=== PATIENT | female | born 1965 | race Caucasian/White ===

== ENCOUNTER 2018-06-26 00:28 | Outpatient (CLI) | payer MEDICAID, SELFPAY ==
--- NOTE | 2018-06-26 09:23 | DI.RAD_ITS ---
SYMPTOM/DIAGNOSIS: CHRONIC OBS ASTHMA J44.9, COUGH R05 CHEST X-RAY PA and lateral. Comparison 04/20/14 Heart size and pulmonary vasculature are within normal limits. The lungs are hyperinflated consistent with underlying COPD. No infiltrates, effusions or pneumothoraces are identified. The bones are intact. IMPRESSION: COPD, no acute pulmonary process.
== END 2018-06-26 00:48 ==
PROVIDERS: PCP Physician Assistant Medical; Visit Provider Physician Assistant Medical
DX: J44.9 Chronic obstructive pulmonary disease, unspecified (principal); R05 Cough
CPT/HCPCS: 71046

== ENCOUNTER 2018-07-16 01:21 | Outpatient (CLI) | payer MEDICAID, SELFPAY ==
--- NOTE | 2018-07-16 10:17 | DI.RAD_ITS ---
SYMPTOM/DIAGNOSIS: LT INDEX DIP PAIN M79.645 LEFT INDEX FINGER: The bony structures are normally mineralized. There are mild degenerative changes involving the distal interphalangeal joint. There is no evidence of a fracture or dislocation.
== END 2018-07-16 01:41 ==
PROVIDERS: PCP Physician Assistant Medical; Visit Provider Specialist/Technologist Athletic Trainer
DX: M79.645 Pain in left finger(s) (principal); M15.1 Heberden's nodes (with arthropathy)
CPT/HCPCS: 73140

== ENCOUNTER 2018-12-14 02:03 | Outpatient (CLI) | payer MEDICAID, SELFPAY | END 2018-12-14 02:23 | PROVIDERS: PCP Physician Assistant Medical; Visit Provider Nurse Practitioner Family | DX: J44.9 Chronic obstructive pulmonary disease, unspecified (principal) ==

== ENCOUNTER 2019-10-15 01:55 | Outpatient (CLI) | payer MEDICARE, MEDICAID, SELFPAY ==
--- NOTE | 2019-10-15 13:14 | DI.MAMMO_ITS ---
EXAM: MG MAMMO SCREENING CLINICAL HISTORY: SCREENING, [facility] Z00.00. TECHNIQUE: Full field digital CC and MLO mammographic images were obtained with 3D tomosynthesis and utilizing computer aided detection (CAD). COMPARISON: . 2011 to 2016 FINDINGS: Breast Density - Category B - Scattered areas of fibroglandular density Masses/Architectural Distortion: None seen. Microcalcifications: No suspicious pleomorphic-type calcifications are seen. Skin Thickening/Nipple Retraction: None. Axilla: Unremarkable. IMPRESSION: 1. BI-RADS category 1, negative. No significant interval change with no specific features of maligna ncy noted. 2. Unless there is more urgent need, screening mammography is recommended, as per [employer] guidelines. A negative radiographic report should not delay biopsy if a dominant or clinically suspicious mass is present. Up to ten percent of cancers are not identified on mammography. A negative report may reinforce clinical impression. Adenosis and dense breasts may obscure an underlying neoplasm. False positive reports average 6 to 10%. Patient will receive a letter notifying them of these results.
== END 2019-10-15 02:15 ==
PROVIDERS: PCP Physician Assistant Medical; Visit Provider Nurse Practitioner Family
DX: Z12.31 Encounter for screening mammogram for malignant neoplasm of breast (principal)
CPT/HCPCS: 77063; 77067

== ENCOUNTER 2019-12-07 15:25 | Outpatient (REF) | payer MEDICARE, MEDICAID, SELFPAY ==
--- NOTE | 2019-12-07 11:20 | PAPFT_PTH ---
PATIENT: Ely Casanova LOC: [facility] U#:[id number] AGE/SX: 54/F ROOM: RE12/07/[address]: Arline Miguel : 1965 BED: DIS: 12/07/2019 SPEC #: [id number] RECD: 12/08/19 12:56 STATUS: KEVIN REElisa #: [id number] VA: 12/07/19 11:[address]: Arline Miguel DEPT: [facility] Cytology RECD BY: Kandis Pugh ENTERED: 12/08/19 12:57 SP TYPE: PAPFT OTHR DR: Debby Salmon Tissues: 1 - CX/ENDOCX FOR PAP SMEARS Procedures: PAP THIN PREP/UVM Screening HPV DNA PROBE Comments: [id number]
== END 2019-12-07 15:45 ==
LOC: NCHCN 15:25
PROVIDERS: PCP Physician Assistant Medical; Visit Provider Nurse Practitioner Family
DX: Z12.4 Encounter for screening for malignant neoplasm of cervix (principal); Z01.419 Encounter for gynecological examination (general) (routine) without abnormal findings
CPT/HCPCS: 88142; 87624

== ENCOUNTER 2020-02-09 16:26 | Outpatient (REF) | payer MEDICARE, MEDICAID, SELFPAY ==
[2020-02-10 14:48] LABS: COVID-19 RT-PCR Result NEGATIVE (Negative)
== END 2020-02-09 16:46 ==
LOC: NCHCN 16:26
PROVIDERS: PCP Physician Assistant Medical; Visit Provider Physician Assistant
DX: R06.02 Shortness of breath (principal)
CPT/HCPCS: U0003

== ENCOUNTER 2020-02-16 08:42 | Outpatient (REF) | payer MEDICARE, MEDICAID, SELFPAY ==
[2020-02-16 18:59] LABS: ALT 34 U/L (14-59); AST 21 U/L (15-37); Albumin 3.7 g/dL (3.4-5.0); Alkaline Phosphatase 54 U/L (46-116); Anion Gap 4.4 mmol/L (3-11); BUN 13 mg/dL (7-18); Bilirubin, Total 0.2 mg/dL (0.2-1.0); CO2 32.6 mmol/L (21.0-32.0); Calcium 9.1 mg/dL (8.5-10.1); Calculated LDL 127 mg/dL (<100); Chloride 98 mmol/L (98-107); Cholesterol 191 mg/dL (<200); Glucose 110 mg/dL (74-106); HDL Cholesterol 45 mg/dL (40-60); Potassium 4.8 mmol/L (3.5-5.1); Sodium 135 mmol/L (136-145); Triglyceride 98 mg/dL (<150)
[2020-02-16 19:27] LABS: Creatine Kinase 116 U/L (26-192)
== END 2020-02-16 09:02 ==
LOC: NCHCN 08:42
PROVIDERS: PCP Physician Assistant Medical; Visit Provider Nurse Practitioner Family
DX: E78.5 Hyperlipidemia, unspecified (principal); J44.9 Chronic obstructive pulmonary disease, unspecified; F17.200 Nicotine dependence, unspecified, uncomplicated
CPT/HCPCS: 80053; 80061; 82550

== ENCOUNTER 2020-04-18 14:57 | Outpatient (REF) | payer MEDICARE, MEDICAID, SELFPAY ==
[2020-04-18 19:43] LABS: HDL Cholesterol 50 mg/dL (40-60); LDL CHOLESTEROL 88 mg/dL (<100)
== END 2020-04-18 15:17 ==
LOC: NCHCN 14:57
PROVIDERS: PCP Physician Assistant Medical; Visit Provider Nurse Practitioner Family
DX: I73.9 Peripheral vascular disease, unspecified (principal); J44.9 Chronic obstructive pulmonary disease, unspecified; R19.5 Other fecal abnormalities
CPT/HCPCS: 83721; 83718

== ENCOUNTER 2020-07-17 11:53 | Outpatient (REF) | payer MEDICARE, MEDICAID, SELFPAY ==
[2020-07-17 19:20] LABS: HCT 51.8 % (36.0-46.0); HGB 17.2 g/dL (11.2-15.7); MCH 35.8 pg (27.0-33.0); MCHC 33.2 % (32.0-36.0); MCV 107.9 fL (80-95); MPV 10.1 fL (8.0-11.0); Platelet Count 229 10^3/uL (130-400); RDW 12.7 % (11.7-14.6); RDW-SD 51.8 fL; WBC 6.27 10^3/uL (4.4-10.8)
[2020-07-17 19:37] LABS: Anion Gap 4.5 mmol/L (3-11); BUN 14 mg/dL (7-18); CO2 31.5 mmol/L (21.0-32.0); CREATININE 0.64 mg/dL (0.55-1.02); Calcium 9.7 mg/dL (8.5-10.1); Chloride 97 mmol/L (98-107); Glucose 107 mg/dL (74-106); Potassium 5.4 mmol/L (3.5-5.1); Sodium 133 mmol/L (136-145)
[2020-07-19 10:27] LABS: TSH (W/Ref FT4) 1.81 uIU/mL (0.36-3.74); Vitamin B12 424 pg/mL (193-986)
[2020-07-19 21:38] LABS: Folate 6.2 ng/mL (See Note)
== END 2020-07-17 12:13 ==
LOC: NCHCN 11:53
PROVIDERS: PCP Nurse Practitioner Family; Visit Provider Nurse Practitioner Family
DX: J44.9 Chronic obstructive pulmonary disease, unspecified (principal); I73.9 Peripheral vascular disease, unspecified; E78.5 Hyperlipidemia, unspecified; R89.9 Unspecified abnormal finding in specimens from other organs, systems and tissues
CPT/HCPCS: 80048; 85027; 82607; 82746; 84443

== ENCOUNTER 2020-12-11 11:18 | Observation (INO) | payer MEDICARE, MEDICAID, SELFPAY ==
[2020-12-11] VITALS (47 sets, daily range): BP systolic 94–148; BP diastolic 42–112; PULSE 63–93; RESP 7–25; TEMP 36.7; O2SAT 94–99
--- NOTE | 2020-12-11 11:15 | RT.EKG_ITS ---
APPROVED REPORT Exam: Resting ECG Patient Location: E HR:62 bpm ECG Measurements Heart Rate 62 AXIS NM 164 P 82 QRSd 103 QRS 79 QT 383 T 65 QTc 391 Conclusion Sinus rhythm...normal P axis, V-rate 60- 99 non-specific ST changes, no STEMI, non-diagnostic EKG
--- NOTE | 2020-12-11 11:30 | DI.CT_ITS ---
EXAM: CT THORAX CTA CLINICAL HISTORY: chest pain, coagulopath. TECHNIQUE: Imaging Protocol: CT angiography of the chest was performed using pulmonary embolus jordyn col. Multi planar reconstructions were performed. CONTRAST MATERIAL: Intravenous: Omnipaque 350 Contrast volume: 100 cc COMPARISON: CT CT ABD AORTA CTA W RUNOFF from 12/11/[address] ABD AORTA CTA W RUNOFF from 12/11/2020 FINDINGS: CHEST: PULMONARY ARTERIES: There are no intraluminal filling defects to suggest acute pulmonary emboli. LUNGS: There are no infiltrates nor evidence of pulmonary infarction.. There are no pleural effusions . MEDIASTINUM: There is no hilar nor mediastinal adenopathy. Visualized thyroid unremarkable. CARDIAC: Heart size is normal. There is no pericardial effusion.Caliber of the thoracic aorta is wit hin normal limits. There is no evidence of shift of the interventricular septum. No evidence of aort ic dissection. Vertebral artery on the left side originates as an independent vessel off the aortic arch instead of typical origin off left subclavian artery. PARTIALLY VISUALIZED UPPERMOST ABDOMEN: No obvious findings OSSEOUS: No significant osseous lesions.. IMPRESSION: 1. No evidence of acute pulmonary emboli. No evidence of pulmonary infarction.No pleural effusions. 2. No intrathoracic adenopathy 3. Left vertebral artery variant origin as described above, this being developmental. RADIATION DOSE DELIVERED: LINK-TO-SR Total DLP DATA REPOSITORY: All CT scans at this facility are submitted to the National Radiology Data Registry (NRDR) Dose Index Registry (DIR) with the [employer] (ACR). RADIATION OPTIMIZATION: All CT scans at this facility use at least one of these dose optimization te chniques: automated exposure control; mA and/or kV adjustment per patient size (includes targeted exa ms where dose is matched to clinical indication); or iterative reconstruction.
--- NOTE | 2020-12-11 11:47 | W.ED.GENAD ---
Discharge Plan Disposition Condition: Improving Discharge Details Chief Complaint: Chest Pain Admit Date/Time: 12/11/20 18:32 Admit Provider: Estevan Slater Attending Provider: Estevan Slater Primary Care Provider: Arline Miguel ED Provider: Kandis Sorto Discharge Instructions Activity:: Activity as Tolerated Equipment/Supplies:: No Equipment Needed Diet:: As Tolerated Discharge Orders Discharge Orders: Discharge Order (Routine); Ordered 12/12/20 Ordered By: Mónica Murray Discharge Data Discharge Date/Time-TO BE ENTERED AT DEPARTURE: 12/11/20 19:09 Medical Decision Making <KJ Salas - Last Filed: 12/13/20 16:07> Patient has stenosis with the SMA, 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 Miller, no acute abnormality Patient is resting comfortably in room I did not give aspirin as she did take her Plavix and her Xarelto this morning She is agreeable to admission at this time Spoke with Dr. Morton, vascular at [facility] who does not believe any intervention is needed regarding abnormal CT findings abdomen and pelvis Patient will be admitted by Dr. Slater No aspirin was administered as patient has taken her Plavix today and Xarelto Pain-free at time of reevaluation 2 - troponins, to negative EKGs Differential Diagnosis Differential Diagnosis: Angina, ST elevation HI, pulmonary embolism, anxiety Medical Records Medical records reviewed: Yes I reviewed the patient's medical records. Lab Data Lab results reviewed: Yes I reviewed the patient's lab results. <KJ Ashton - Last Filed: 12/11/20 18:14> This patient was going to be signed out to me by my colleague KJ Sorto; however, patient disposition made prior to any official handoff. I has no participation in the patient's care here in the ER. HPI <KJ Salas - Last Filed: 12/13/20 16:07> This 55-year-old female with past medical history of peripheral vascular disease with 5 stents on Xarelto and Plavix presents with reports of chest pain which started yesterday at 3. She states that the chest pain began when her grandkids were taken from her. She states that her [id number]-lj-[id number] to remove the grandkids from the house abruptly and this precipitated the pain. She denies prior history of similar pain with anxiety. She denies any new leg pain or swelling. She denies any shortness of breath. She states the chest pain lasts several seconds and then resolves. She denies any pleuritic pain she says but when she starts thinking about how her grand kids have been removed, this makes her pain worse. She denies prior stress test or known cardiac history. She denies history of early cardiac disease in family members or known cardiac disease himself. She denies history of hypertension but does have reported history of hyperlipidemia. Denies any associated nausea or diaphoresis. General Date/Time Provider Initiated Documentation: 12/11/20 11:29. Related Data Home Medications Medication Instructions Recorded Confirmed Advair HFA 2 puff INHALATION BID 12/07/12 12/11/20 acetaminophen 325 - 650 mg PO PRN tab-cap 05/02/15 12/11/20 calcium citrate 500 mg PO DAILY 05/02/15 12/11/20 cholecalciferol (vitamin D3) 2,000 unit PO DAILY 05/02/15 12/11/20 [Vitamin D3] gabapentin 300 mg PO 3 TABS HS tab-cap 05/02/15 12/11/20 loratadine 10 mg PO DAILY tab-cap 05/02/15 12/11/20 simvastatin 10 mg PO DAILY tab-cap 05/02/15 12/11/20 Combivent Respimat 1 puff INHALATION QID 12/11/20 12/12/20 Xarelto 2.5 mg PO BID 12/11/20 12/11/20 albuterol sulfate 1.25 mg INHALATION QID PRN 12/11/20 12/11/20 albuterol sulfate 2 puff INHALATION Q4H PRN PRN 12/11/20 12/11/20 clopidogrel 75 mg PO HS 12/11/20 12/11/20 ferrous sulfate 325 mg PO BID 12/11/20 12/11/20 gabapentin 400 mg PO QAM 12/11/20 12/11/20 hydroxyzine pamoate 25 mg PO TID PRN PRN 12/11/20 12/11/20 omeprazole 20 mg PO DAILY 12/11/20 12/11/20 polyethylene glycol 3350 255 g PO DAILY PRN 12/11/20 12/11/20 Allergies Allergy/AdvReac Type Severity Reaction Status Date / Time tramadol HCl [From Ultram] AdvReac Intermediate Nausea Unverified 12/11/20 11:31 General Stated Complaint: Chest Pain CAMPOS: 2 <KJ Ashton - Last Filed: 12/11/20 18:14> This 55-year-old female with past medical history of peripheral vascular disease with 5 stents on Xarelto and Plavix presents with reports of chest pain which started yesterday at 3. She states that the chest pain began when her grandkids were taken from her. She states that her zapgcuyv-sl-[id number] to remove the grandkids from the house abruptly and this precipitated the pain. She denies prior history of similar pain with anxiety. She denies any new leg pain or swelling. She denies any shortness of breath. She states the chest pain lasts several seconds and then resolves. She denies any pleuritic pain she says but when she starts thinking about how her grand kids have been removed, this makes her pain worse. She denies prior stress test or known cardiac history. She denies history of early cardiac disease in family members or known cardiac disease himself. She denies history of hypertension but does have reported history of hyperlipidemia. Denies any associated nausea or diaphoresis. Review of Systems <KJ Salas - Last Filed: 12/13/20 16:07> Narrative: Review of systems obtained x7 aside from where indicated in [facility] <KJ Salas - Last Filed: 12/13/20 16:07> Medical History Anemia Anxiety Asthma Carpal tunnel syndrome Chronic obstructive lung disease Degenerative joint disease Depression Dysuria Fibrocystic breast disease Fibromyalgia Gastroesophageal reflux disease Hyperlipidemia Knee joint pain Low back pain syndrome Neuropathic arthritis Osteopenia Peripheral vascular disease Plantar fasciitis PTSD (post-traumatic stress disorder) Shoulder pain Tobacco abuse URI (upper respiratory infection) Surgical History Excision, Distal Clavicle (12/09/12) LEFT Open Carpal Tunnel release (07/28/15) LEFT WRIST/ Social History Smoking/Tobacco Use Status: Current every day Smoking risk assessment performed?: Yes Alcohol Intake: never Drug use: Occasionally Substance use type: marijuana Do you feel safe at home: Yes Do you feel safe in your relationship?: Yes Exam <JK Salas - Last Filed: 12/13/20 16:07> Const General: cooperative and no acute distress Orientation: oriented x3 HENMT Mouth: oral mucosae normal Chest Chest: normal inspection of the chest Other: Reproducible chest wall tenderness Resp Effort & Inspection: normal respiratory effort Auscultation: clear to auscultation bilaterally Cardio Rate: regular rate Rhythm: regular rhythm GI Other: No abdominal bruit or pulsatile mass Neuro General: patient alert and patient oriented x3 Extrem Other: No dopplerable pulse to right lower extremity, baseline per patient Posterior tibialis pulse intact left lower extremity No calf swelling or tenderness appreciated Course <KJ Salas - Last Filed: 12/13/20 16:07> Vital Signs Vital signs: Vital Signs Temperature 36.7 C 12/11/20 11:27 Pulse 72 12/11/20 11:27 Respiratory Rate 16 12/11/20 11:27 Blood Pressure 94/42 L 12/11/20 11:27 Pulse Oximetry 98 12/11/20 11:27 Temperature 36.7 C 12/11/20 11:27 Temperature Source Temporal Artery Scan 12/11/20 11:27 Pulse 72 12/11/20 11:27 Respiratory Rate 16 12/11/20 11:27 Respiratory Effort Non-Labored 12/11/20 11:30 Blood Pressure 94/42 L 12/11/20 11:27 Blood Pressure Position Supine 12/11/20 11:27 Pulse Oximetry 98 12/11/20 11:27 Oxygen Delivery Method Nasal Cannula 12/11/20 11:27 Oxygen Flow Rate 2 12/11/20 11:27 Pain Level 2 12/11/20 11:27
[2020-12-11 11:59] LABS: Abs Immature Grans 0.03 10^3/uL (0.0-0.06); Absolute Eosinophil Count 0.15 10^3/uL (0.0-0.7); HCT 50.9 % (36.0-46.0); HGB 17.4 g/dL (11.2-15.7); MCH 36.2 pg (27.0-33.0); MCHC 34.2 % (32.0-36.0); MCV 105.8 fL (80-95); MPV 9.2 fL (8.0-11.0); Nucleated RBC 0 %; Platelet Count 253 10^3/uL (130-400); RBC 4.81 10^6/uL (3.93-5.22); RDW 12.2 % (11.7-14.6); RDW-SD 48.9 fL; WBC 7.36 10^3/uL (4.4-10.8)
[2020-12-11 12:17] LABS: ALT 30 U/L (14-59); AST 20 U/L (15-37); Alkaline Phosphatase 78 U/L (46-116); Anion Gap 7.8 mmol/L (3-11); BUN 12 mg/dL (7-18); Bilirubin, Total 0.4 mg/dL (0.2-1.0); CO2 29.2 mmol/L (21.0-32.0); CREATININE 0.6 mg/dL (0.55-1.02); Calcium 9.1 mg/dL (8.5-10.1); Chloride 98 mmol/L (98-107); Glucose 106 mg/dL (74-106); Potassium 4.1 mmol/L (3.5-5.1); Sodium 135 mmol/L (136-145); Total Protein 8.1 g/dL (6.4-8.2)
[2020-12-11 12:19] LABS: Troponin I < 0.05 ng/mL (<0.06)
[2020-12-11 12:20] LABS: Absolute Lymphocyte Count 1.91 10^3/uL (1.2-3.4); Absolute Monocyte Count 0.88 10^3/uL (0.1-0.8); Absolute Neutrophil Count 4.42 10^3/uL (1.2-6.7); Atypical Lymphocytes % 6; Diff Comment Manual Differential; Macrocytosis 3+; Polychromasia Present
[2020-12-11] MEDS: Normal Saline - Diluent 50 ML VIAL IV (13:53)
[2020-12-11] MEDS: Omnipaque 350 MG/ML 100 ML BTL IJ (13:54)
[2020-12-11] MEDS: Omnipaque 350 MG/ML 50 ML BTL IJ (13:55)
--- NOTE | 2020-12-11 13:57 | DI.CT_ITS ---
EXAM: CT ABD AORTA CTA W RUNOFF CLINICAL HISTORY: chest pain, coagulopath, stents 5 in legs. TECHNIQUE: Imaging Protocol: Axial computed tomography images with coronal and sagittal reformatted images were created and reviewed CONTRAST MATERIAL: Intravenous: Omnipaque 350 Contrast volume:100 ml Oral: None COMPARISON: CT CT THORAX CTA from 12/11/2020 FINDINGS: ABDOMEN: CTA: The abdominal aorta is atherosclerotic. There is significant stenosis at the origin of the supe rior mesenteric artery, approximately 80 percent. Inferior mesenteric artery is occluded. There is fusiform aneurysmal dilatation of the infrarenal abdominal aorta with maximum diameter 2.3 cm. There stents in the common iliac arteries. On the right side there is no prominent intra stent stenosis. No prominent stenosis in the right ext ernal iliac artery. Common femoral artery is patent but the right SFA is occluded at its origin. Distal flow is reconsti tuted at the popliteal artery level. There is thin three-vessel runoff in the right calf. On the left side there is significant stenosis with at the junction of the common and external iliac arteries. Significant disease in the left common femoral artery. Left SFA is a thin but patent vessel is santos nuous with the left popliteal artery which is also within vessel. Tibioperoneal trunk is patent. Th ere is thin three-vessel runoff in the left calf. There is no ascites. No obvious ischemic appearing bowel loops. LIVER: There are no focal hepatic lesions nor dilatation of intrahepatic ducts. GALLBLADDER/BILIARY: No obvious gallbladder pathology. CBD is not dilated. PANCREAS: No evidence of pancreatic mass nor dilatation of the pancreatic duct. SPLEEN: Spleen is not enlarged. There are no intrasplenic lesions. Splenic and portal veins are mcleod nt. ADRENALS: Thickening of the adrenal glands noted. KIDNEYS: No cysts evident. No calculi nor hydronephrosis. No solid renal masses. LYMPH NODES: There is no retroperitoneal nor para-aortic adenopathy. No obvious mesenteric masses. ABDOMINAL WALL/GI: No evidence of significant anterior abdominal wall hernia. No bowel obstruction. PELVIS: LYMPH NODES: There is no intrapelvic nor inguinal adenopathy. GI: No evidence of appendicitis.No evidence of sigmoid diverticulitis. URINARY BLADDER: No calculi nor masses evident REPRODUCTIVE: Age-appropriate OSSEOUS: Osteopenia. No discrete focal lytic osseous lesions identified. IMPRESSION: 1. Atherosclerotic abdominal aorta as described above high-grade stenosis at the origin of the superi or mesenteric artery. There are no obvious ischemic appearing bowel loops. TITA origin is not identi fied and is presumed to be occluded. Celiac artery is patent 2. Left renal artery is patent. Significant stenosis at the origin of the right renal artery. Both kidneys exhibit normal size. No incidental renal masses. 3. Iliac artery stents with findings as above. 4. Right SFA is occluded. Left SFA is a thin vessel There are opacified subpopliteal arteries bilaterally. No evidence of popliteal artery aneurysm RADIATION DOSE DELIVERED: Total DLP Total DLP DATA REPOSITORY: All CT scans at this facility are submitted to the National Radiology Data Registry (NRDR) Dose Index Registry (DIR) with the [employer] (ACR). RADIATION OPTIMIZATION: All CT scans at this facility use at least one of these dose optimization te chniques: automated exposure control; mA and/or kV adjustment per patient size (includes targeted exa ms where dose is matched to clinical indication); or iterative reconstruction.
--- NOTE | 2020-12-11 14:00 | RT.EKG_ITS ---
APPROVED REPORT Exam: Resting ECG Patient Location: E HR:74 bpm ECG Measurements Heart Rate 74 AXIS HI 171 P 87 QRSd 106 QRS 75 QT 387 T 64 QTc 429 Conclusion Sinus rhythm...normal P axis, V-rate 60- 99 non diagnostic EKG I have reviewed and interpreted ECG and agree with software generated interpretation.
[2020-12-11 14:54] LABS: Troponin I < 0.05 ng/mL (<0.06)
[2020-12-11 16:23] LABS: Source Nasal/Nares
[2020-12-11 17:12] LABS: COVID-19 PCR Negative (Negative)
--- NOTE | 2020-12-11 18:20 | W.PM.HP.N ---
Date of service: 12/11/20 Time of Service: 18:20 Assessment and Plan Assessment and plan (1) Chest pain: Status: Acute Assessment and plan: CP. I think stress reaction more likely, but angina precipitated by stress to be considered. In any case will complete enzyme sequence and plan on stress test in AM. Will also trial dose of Ativan. History of Present Illness History of Present Illness Chief Complaint: CP Narrative: 55 female with COPD and PVD. Reports she had a sudden falling out with her zrzskcoc-ns-zqh last night (she usually watches her grandchildren, and the daughter pulled them from her car because of a careless remark). This was very stressful for her, and she developed some chest discomfort. Unclear if this was persistent, waxing and waning or resolved, but she dos allow that when she thinks about what happened last night she gets disturbed again, and has more CP. Saw PCP who sent her to ER. In ER trop neg x 2 and EKG w/o changes. CTA chest negative. Here for serial enzymes and then stress test. I ask if she thinks this is more a question of stress or actual pain. She is not sure. But when offered she agrees to trial dose something to help her relax. Review of Systems All systems reviewed & are unremarkable except as noted in HPI and below PFSH Medical History Anemia Anxiety Asthma Carpal tunnel syndrome Chronic obstructive lung disease Degenerative joint disease Depression Dysuria Fibrocystic breast disease Fibromyalgia Gastroesophageal reflux disease Hyperlipidemia Knee joint pain Low back pain syndrome Neuropathic arthritis Osteopenia Peripheral vascular disease Plantar fasciitis PTSD (post-traumatic stress disorder) Shoulder pain Tobacco abuse URI (upper respiratory infection) Surgical History Excision, Distal Clavicle (12/09/12) LEFT Open Carpal Tunnel release (07/28/15) LEFT WRIST/ Social History Smoking/Tobacco Use Status: Current every day Smoking risk assessment performed?: Yes Alcohol Intake: never Drug use: Occasionally Substance use type: marijuana Do you feel safe at home: Yes Do you feel safe in your relationship?: Yes Meds Home Medications and Allergies Allergies Allergy/AdvReac Type Severity Reaction Status Date / Time tramadol HCl [From Ultram] AdvReac Intermediate Nausea Unverified 12/11/20 11:31 Home Medications Medication Instructions Recorded Confirmed Type fluticasone propion-salmeterol 2 puff INHALATION BID 12/07/12 12/11/20 History [Advair Hfa 230/21 Mcg Inhaler] acetaminophen 325 - 650 mg PO PRN tab-cap 05/02/15 12/11/20 History calcium citrate 500 mg PO DAILY 05/02/15 12/11/20 History cholecalciferol (vitamin D3) 2,000 unit PO DAILY 05/02/15 12/11/20 History [Vitamin D3] gabapentin 300 mg PO 3 TABS HS tab-cap 05/02/15 12/11/20 History loratadine 10 mg PO DAILY tab-cap 05/02/15 12/11/20 History simvastatin 10 mg PO DAILY tab-cap 05/02/15 12/11/20 History albuterol sulfate 1.25 mg INHALATION QID PRN 12/11/20 12/11/20 History albuterol sulfate 2 puff INHALATION Q4H PRN PRN 12/11/20 12/11/20 History clopidogrel 75 mg PO HS 12/11/20 12/11/20 History ferrous sulfate 325 mg PO BID 12/11/20 12/11/20 History gabapentin 400 mg PO QAM 12/11/20 12/11/20 History hydroxyzine pamoate 25 mg PO TID PRN PRN 12/11/20 12/11/20 History ipratropium-albuterol [Combivent 2 puff INHALATION QID 12/11/20 12/11/20 History Respimat] omeprazole 20 mg PO DAILY 12/11/20 12/11/20 History polyethylene glycol 3350 255 g PO DAILY PRN 12/11/20 12/11/20 History rivaroxaban [Xarelto] 2.5 mg PO BID 12/11/20 12/11/20 History Exam Narrative Exam Narrative: 108/61, 74, 36.7, 20. 95% RA. HEENT atraumatic; neck JVP less than 4 cm; lungs diminished; heart distant, RRR; abdomen soft and NT' extremities w/o edema, pedal pulses not palpable; neuro Ox3, moves all 4s Results Labs Result diagrams: 12/11/20 10:50 12/11/20 10:50 Labs: Laboratory Results - last 24 hr 12/11/20 12/11/20 12/11/20 10:50 10:50 14:20 WBC 7.36 RBC 4.81 Hgb 17.4 H Hct 50.9 H MCV 105.8 H MCH 36.2 H MCHC 34.2 RDW 12.2 Plt Count 253 MPV 9.2 Immature Gran % 0.0 Neutrophils % 60.0 Lymphocytes % 20.0 Atypical Lymphs % 6 Monocytes % 12.0 Eosinophils % 2.0 Basophils % 0.0 Nucleated RBC % 0 Absolute Neutrophils 4.42 Absolute Lymphocytes 1.91 Absolute Monocytes 0.88 H Absolute Eosinophils 0.15 Absolute Basophils 0.00 RBC Morphology See below Polychromasia Present Macrocytosis 3+ Sodium 135 L Potassium 4.1 Chloride 98 Carbon Dioxide 29.2 Anion Gap 7.8 BUN 12 Creatinine 0.6 Estimated GFR/1.73 m2 >= 60.00 Glucose 106 Calcium 9.1 Total Bilirubin 0.4 AST 20 ALT 30 Alkaline Phosphatase 78 Troponin I < 0.05 < 0.05 Total Protein 8.1 Albumin 4.0 COVID-19 Source SARS-CoV-2 (PCR) 12/11/20 12/11/20 15:01 16:20 WBC RBC Hgb Hct MCV MCH MCHC RDW Plt Count MPV Immature Gran % Neutrophils % Lymphocytes % Atypical Lymphs % Monocytes % Eosinophils % Basophils % Nucleated RBC % Absolute Neutrophils Absolute Lymphocytes Absolute Monocytes Absolute Eosinophils Absolute Basophils RBC Morphology Polychromasia Macrocytosis Sodium Potassium Chloride Carbon Dioxide Anion Gap BUN Creatinine Estimated GFR/1.73 m2 Glucose Calcium Total Bilirubin AST ALT Alkaline Phosphatase Troponin I Cancelled Total Protein Albumin COVID-19 Source Nasal/nares SARS-CoV-2 (PCR) Negative Last Vital Signs Temp 36.7 C 12/11/20 11:27 Pulse 74 12/11/20 15:01 Resp 20 12/11/20 15:01 BP 108/61 12/11/20 15:01 Pulse Ox 95 12/11/20 15:00 COVID-19 Screening Have you, or household traveled for leisure in last 14 days?: No Had IN PERSON contact w/suspected or confirmed C-19 person: No
[2020-12-11 19:24] LABS: Troponin I < 0.05 ng/mL (<0.06)
[2020-12-11] MEDS: Clopidogrel 75 MG TAB PO (21:20)
[2020-12-11] MEDS: Gabapentin 300 MG CAP 900 MG PO (21:21)
[2020-12-11] MEDS: LORazepam 0.5 MG TAB PO (21:31)
[2020-12-11] MEDS: Rivaroxaban 2.5 MG TABLET PO (21:41)
[2020-12-12 07:03] VITALS: PULSE 78
[2020-12-12 07:15] VITALS: BP 122/72; PULSE 79; RESP 18; TEMP 36.7; O2SAT 90
[2020-12-12] MEDS: Simvastatin 10 MG TAB PO (07:55)
[2020-12-12] MEDS: Gabapentin 400 MG CAP PO (07:55)
[2020-12-12] MEDS: Omeprazole 20 MG CAPCR PO (07:55)
[2020-12-12] MEDS: Rivaroxaban 2.5 MG TABLET PO (08:55)
[2020-12-12 11:12] VITALS: BP 126/79; PULSE 80; RESP 19; TEMP 37; O2SAT 90
--- NOTE | 2020-12-12 11:26 | CHAPLAIN ---
I had a short visit with Ely, who was expecting to be discharged. She asked for another cup of coffee while she waited.
--- NOTE | 2020-12-12 12:07 | W.PM.DS.N ---
Date of service: 12/12/20 Time of Service: 12:07 DS: Diagnosis Discharge Diagnosis (1) Chest pain: Status: Acute Discharge Plan Disposition Patient Disposition: HOME Condition: Improving Discharge Details Reason For Visit: CP Admit Date/Time: 12/11/20 18:32 Admit Provider: Estevan Slater Attending Provider: Estevan Slater Primary Care Provider: Arline Miguel Hospital Course Hospital Course: This is a 55-year-old female with past medical history of peripheral vascular disease with 5 stents on Xarelto and Plavix who presented to the ED with reports of chest pain which started the day before. She states that the chest pain began when her grandkids were taken from her. She states that her [id number] to remove the grandkids from the house abruptly and this precipitated the pain. Her work up in the ED showed negative troponin and no acute EKG changes. 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 Case was discussed with Dr. Morton, vascular at [facility] who does not believe any intervention is needed regarding abnormal CT findings abdomen. No aspirin was administered as patient has taken her Plavix today and Xarelto. Patient has remained pain-free with negative troponins, hemodynamically stable with no EKG changes. she is stable for discharge to home with no new services. she should follow up outpatient with primary care provider for further cardiac evaluation discharge discussed with Dr Crowder Home Meds and New Rx's Prescriptions: Continued acetaminophen 325 MG tablet 325 - 650 mg PO PRN RF: 0 loratadine 10 MG tablet,disintegrating 10 mg PO DAILY RF: 0 simvastatin 10 MG tablet 10 mg PO DAILY RF: 0 gabapentin 300 MG capsule 300 mg PO 3 TABS HS RF: 0 calcium citrate 250 MG tablet 500 mg PO DAILY RF: 0 cholecalciferol (vitamin D3) [Vitamin D3] 2,000 UNIT tablet 2,000 unit PO DAILY RF: 0 Advair HFA 12 GM HFA aerosol inhaler 2 puff Inhalation BID RF: 0 gabapentin 400 mg capsule 400 mg PO QAM RF: 0 polyethylene glycol 3350 17 gram powder in packet 255 g PO DAILY PRNRF: 0 albuterol sulfate 1.25 mg/3 mL Solution For Nebulization 1.25 mg INHALATION QID PRNRF: 0 clopidogrel 75 mg tablet 75 mg PO HS RF: 0 ferrous sulfate 325 mg (65 mg iron) tablet 325 mg PO BID RF: 0 omeprazole 20 mg capsule,delayed release(DR/EC) 20 mg PO DAILY RF: 0 albuterol sulfate 90 mcg/actuation HFA aerosol inhaler 2 puff INHALATION Q4H PRN PRNRF: 0 hydroxyzine pamoate 25 mg capsule 25 mg PO TID PRN PRNRF: 0 Combivent Respimat 20-100 mcg/actuation mist 2 puff INHALATION QID RF: 0 Xarelto 2.5 mg tablet 2.5 mg PO BID RF: 0 Discharge Instructions Instructions: Chest Pain (DC) Additional Instructions: continue usual medication Stand Alone Forms: Nursing Discharge Form Referrals: Arline Miguel [Primary Care Provider] - 12/26/20 9:00 am Activity:: Activity as Tolerated Equipment/Supplies:: No Equipment Needed Diet:: As Tolerated Discharge Orders Discharge Orders: Discharge Order (Routine); Ordered 12/12/20 Ordered By: Mónica Murray Other Ambulatory Orders: NM MPI rest & stress day 2 (Routine) Location: None Selected Ordered By: Mónica Murray DS: Summary Time Spent with Patient providing and/or coordinating discharge services: Greater than 30 minutes Status at Discharge Functional status at discharge: independent ambulation Overall status at discharge: patient is back to baseline Mental Status: mental status grossly normal Speech and Movement: speech and movement normal Mood: congruent mood Affect: normal affect Exam Const General: cooperative, no acute distress, frail appearing (older than stated age) and ill appearing chronically Orientation: oriented x3 [facility] Head: normal to inspection, normocephalic and atraumatic Mouth: oral mucosae normal Chest Chest: normal inspection of the chest Resp Effort & Inspection: normal respiratory effort Auscultation: wheezes (throughout) expiratory wheezes and scattered wheezes Cardio Rate: regular rate Rhythm: regular rhythm Neuro General: patient alert and patient oriented x3 Psych Mental Status: mental status grossly normal Speech and Movement: speech and movement normal Mood: congruent mood Affect: normal affect DS: Data Vitals/I&O Vitals and I&O: Vital Signs Temperature 37 C 12/12/20 11:12 Temperature Source Tympanic 12/12/20 11:12 Pulse 80 12/12/20 11:12 Pulse Rhythm Regular 12/12/20 07:55 Pulse 80 12/11/20 18:46 Respiratory Rate 19 12/12/20 11:12 Respiratory Effort 12/12/20 07:55 Respiratory Depth Shallow 12/12/20 07:55 Respiratory Pattern Normal 12/12/20 07:55 Blood Pressure 126/79 12/12/20 11:12 Blood Pressure Mean 86 12/11/20 18:46 Blood Pressure Position Supine 12/11/20 11:27 Pulse Oximetry 90 L 12/12/20 11:12 Oxygen Delivery Method Nasal Cannula 12/12/20 11:12 Oxygen Flow Rate 2 12/12/20 11:12 Pain Level 2 12/12/20 11:12 Intake & Output 12/11/20 12/12/20 12/12/20 23:59 11:59 23:59 Intake Total 960 / 960 Balance 960 / 960 Weight 46.266 kg Intake: Oral 960 / 960 Other: Urine Color Yellow Urine Appearance Clear Clear Voiding Methods Toilet Data Completed and Pending Labs on day of discharge: Labs from last 24 hours 12/11/20 12/11/20 12/11/20 19:00 16:20 15:01 WBC RBC Hgb Hct MCV MCH MCHC RDW Plt Count MPV Immature Gran % Neutrophils % Lymphocytes % Atypical Lymphs % Monocytes % Eosinophils % Basophils % Nucleated RBC % Absolute Neutrophils Absolute Lymphocytes Absolute Monocytes Absolute Eosinophils Absolute Basophils RBC Morphology Polychromasia Macrocytosis Sodium Potassium Chloride Carbon Dioxide Anion Gap BUN Creatinine Estimated GFR/1.73 m2 Glucose Calcium Total Bilirubin AST ALT Alkaline Phosphatase Troponin I < 0.05 Cancelled Total Protein Albumin COVID-19 Source Nasal/nares SARS-CoV-2 (PCR) Negative 12/11/20 12/11/20 12/11/20 14:20 10:50 10:50 WBC 7.36 RBC 4.81 Hgb 17.4 H Hct 50.9 H MCV 105.8 H MCH 36.2 H MCHC 34.2 RDW 12.2 Plt Count 253 MPV 9.2 Immature Gran % 0.0 Neutrophils % 60.0 Lymphocytes % 20.0 Atypical Lymphs % 6 Monocytes % 12.0 Eosinophils % 2.0 Basophils % 0.0 Nucleated RBC % 0 Absolute Neutrophils 4.42 Absolute Lymphocytes 1.91 Absolute Monocytes 0.88 H Absolute Eosinophils 0.15 Absolute Basophils 0.00 RBC Morphology See below Polychromasia Present Macrocytosis 3+ Sodium 135 L Potassium 4.1 Chloride 98 Carbon Dioxide 29.2 Anion Gap 7.8 BUN 12 Creatinine 0.6 Estimated GFR/1.73 m2 >= 60.00 Glucose 106 Calcium 9.1 Total Bilirubin 0.4 AST 20 ALT 30 Alkaline Phosphatase 78 Troponin I < 0.05 < 0.05 Total Protein 8.1 Albumin 4.0 COVID-19 Source SARS-CoV-2 (PCR) [facility] Medical History Anemia Anxiety Asthma Carpal tunnel syndrome Chronic obstructive lung disease Degenerative joint disease Depression Dysuria Fibrocystic breast disease Fibromyalgia Gastroesophageal reflux disease Hyperlipidemia Knee joint pain Low back pain syndrome Neuropathic arthritis Osteopenia Peripheral vascular disease Plantar fasciitis PTSD (post-traumatic stress disorder) Shoulder pain Tobacco abuse URI (upper respiratory infection) Surgical History Excision, Distal Clavicle (12/09/12) LEFT Open Carpal Tunnel release (07/28/15) LEFT WRIST/ Social History Smoking/Tobacco Use Status: Current every day Smoking risk assessment performed?: Yes Alcohol Intake: never Drug use: Occasionally Substance use type: marijuana Do you feel safe at home: Yes Do you feel safe in your relationship?: Yes
--- NOTE | 2020-12-12 22:12 | PDOC.CMPRO ---
- If Service Date Differs Date of service: 12/12/20 Time of Service: 22:12 Care Management Progress Note Ely was discharged before CM could meet with her. She was admitted with chest pain which resolved and which was felt to be prcipitated by stress. She will follow up with her community providers.
== END 2020-12-12 14:10 | disposition home or self-care (01) ==
LOC: ER 17:38 → MS 19:13
PROVIDERS: Admitting Provider General Practice; Emergency Provider Physician Assistant; PCP Nurse Practitioner Family; Visit Provider General Practice
DX: R07.89 Other chest pain (principal); I73.9 Peripheral vascular disease, unspecified; Z79.01 Long term (current) use of anticoagulants; D64.9 Anemia, unspecified; F41.9 Anxiety disorder, unspecified; J44.9 Chronic obstructive pulmonary disease, unspecified; F32.9 Major depressive disorder, single episode, unspecified; M79.7 Fibromyalgia; M54.5 Low back pain; F17.210 Nicotine dependence, cigarettes, uncomplicated; F43.10 Post-traumatic stress disorder, unspecified
CPT/HCPCS: 36415; 71275; 75635; 80053; 87635; 93005; 99217; 99222; 99285; 84484; 85025; 93010; 99219; 99284; G0378; J3490; Q9967

== ENCOUNTER 2020-12-19 01:28 | Outpatient (CLI) | payer MEDICARE, MEDICAID, SELFPAY ==
--- NOTE | 2020-12-19 09:15 | DI.NM_ITS ---
APPROVED REPORT Exam: Pharmacologic Patient Location: Out-Patient Room/Bed: Stress Nurse: Debby Xavier RN Ordering Provider:TRIPP PEPE, Contact Number: [phone] BMI: 19.27 Baseline Rhythm: Sinus Rhythm Comment: occasional PVC Indications: Chest pain Medical History Medical History: anemia, anxiety, asthma, COPD, depression, fibromyalgia, gerd, hyperlipidemia, neruo pathic arthritis, PVD, PTSD, tobacco use Cardiac Medications: simvastatin, omeprazole, ferrous sulfate, clopidogrel, albueral sulfate, xarelto , combivent respimat, advair HFA Allergies: Tramadol Cardiac Risk Factors: Hypertension, hyperlipidemia, PVD, asthma, COPD, smoker (current) Previous Cardiac Procedures: None Pretest Chest Pain Characteristics: None Exercise History: Sedentary Physical Disabilities: None Lung Sounds: Diminished in lower bases Heart Sounds: Regular Stress Test Details Test: Exercise stress converted to pharmacologic stress due to failure to obtain a diagnostic stress test. Reason for pharmacologic stress test: physical limitation. Nuclear Acquisition: Rest Tc-99m/Stress Tc-99m 1 day Rest Isotope: Tc-99m Sestamibi. Dose: 10.5 Date: 12/19/2020 Injection Time: 0930 Stress Isotope: Tc-99m Sestamibi. Dose: 32.0 Date: 12/19/2020 Injection Time: 1142 HR Resting HR Supine: 85 bpm Max Heart Rate (APMHR): 165.937668 bpm Resting HR Standin bpm Target HR (85% APMHR): 140.551297 bpm Max HR Achieved: 126 bpm % of APMHR: 76.36 Recovery HR: 98 bpm HR response to stress: Normal HR response to stress BP Resting BP Supine: 130/76 mmHg Resting BP Standin/74 mmHg Max BP: 182/90 mmHg Recovery BP: 150/78 mmHg BP response to stress: Normal blood pressure response to stress. ECG Resting ECG: Sinus Rhythm Ectopy: Occasional PVC Stress ECG: Sinus Tachycardia ST Change: No significant ST segment changes noted Arrhythmia: Occasional PVC, PACs Recovery ECG: Sinus Rhythm Recovery ST Change: No significant ST segment changes noted Recovery ST Deviation: 0 mm Recovery Arrhythmia: Occasional PVC Clinical Reason for Termination: Dyspnea, Fatigue Stress Symptoms: Dyspnea, General Fatigue Exercise duration: 5 min1 sec Highest Stage Reached: Stage 2: 2.5 mph at 12% grade. Exercise capacity: 7.05 METs Rate Pressure Product: 15286 Stress ECG Conclusion 1. The patient exercised for 5 minutes (7 METS). 2. The patient did not reach target heart rate and was converted to a chemical stress test. 3. There is no evidence of ischemia on the ECG portion of the exam. Stress Test Summary STAGE Time (mins) Speed (mph) Grade (%) HR BP SYMPTOMS METS Supine 85 130/76 Standing 94 120/74 1 3 1.7 10 117 162/88 SOB, 90% on 2L O2 4.6 1 min post Lexiscan injection 115 164/88 SOB 3 min post Lexiscan injection 110 182/90 nausea, emesis 6 min post Lexiscan injection 108 150/80 symptoms improved 9 min post Lexiscan injection 98 150/78 MPI Conclusion The patient's ejection fraction was greater than 70% with stress. There were no wall motion abnormal ities. There is no evidence of ischemia on the imaging portion exam. This represents a normal SPECT stress test. Radiologist Interpretation Radiologist Interpretation by: Damian Blake MD Interpretation Date/Time: 12/19/2020 16:12:05
[2020-12-19] MEDS: Regadenoson 0.4 MG/5 ML SYR IVP (11:50)
== END 2020-12-19 01:48 ==
PROVIDERS: PCP Nurse Practitioner Family; Visit Provider Nurse Practitioner Acute Care
DX: R07.9 Chest pain, unspecified (principal); I10 Essential (primary) hypertension; E78.5 Hyperlipidemia, unspecified; J45.909 Unspecified asthma, uncomplicated; F17.210 Nicotine dependence, cigarettes, uncomplicated; I73.9 Peripheral vascular disease, unspecified
CPT/HCPCS: 78452; 93306; 93017; J2785

== ENCOUNTER 2021-01-30 15:28 | Outpatient (REF) | payer MEDICARE, MEDICAID, SELFPAY ==
[2021-01-30 17:00] LABS: ALT 37 U/L (14-59); AST 25 U/L (15-37); HDL Cholesterol 48 mg/dL (40-60); LDL CHOLESTEROL 90 mg/dL (<100)
[2021-01-30 17:11] LABS: Creatine Kinase 137 U/L (26-192)
[2021-02-01 09:50] LABS: Alpha 1 Antitrypsin,Serum 154 mg/dL (90-200)
== END 2021-01-30 15:29 | disposition home or self-care (01) ==
LOC: NCHCN 15:28
PROVIDERS: PCP Nurse Practitioner Family; Visit Provider Nurse Practitioner Family
DX: D75.1 Secondary polycythemia (principal); J44.9 Chronic obstructive pulmonary disease, unspecified; Z99.81 Dependence on supplemental oxygen; I10 Essential (primary) hypertension; E78.5 Hyperlipidemia, unspecified
CPT/HCPCS: 82550; 83721; 82103; 83718; 84450; 84460

== ENCOUNTER 2021-02-20 07:19 | Outpatient (CLI) | payer MEDICARE, MEDICAID, SELFPAY ==
[2021-02-20] MEDS: Albuterol HFA 18 GM 200 PUFF INH IH (09:11)
[2021-02-20] MEDS: Inhaler, Assist Device 1 EACH MC (09:12)
--- NOTE | 2021-03-08 12:30 | W.PFT ---
Date of service: 02/20/21 Time of Service: 08:07 Pulmonary Function Test Result Interpretation Spirometry: Very severe obstructive airways disease with significant bronchodilator response Lung Volumes: No evidence of restriction, moderate to severe hyper inflation and air trapping Diffusion Capacity: Very severely reduced, which is severely reduced when corrected to alveolar volume Airway Pressure: Elevated Impression Very severe obstructive airways disease with significant bronchodilator response, this is associated with very severe diffusion defect and moderate to severe hyperinflation and air trapping Clinical Correlation therefore is recommended.
== END 2021-02-20 07:20 | disposition home or self-care (01) ==
LOC: RT 07:24
PROVIDERS: PCP Nurse Practitioner Family; Visit Provider Nurse Practitioner Family
DX: J44.9 Chronic obstructive pulmonary disease, unspecified (principal)
CPT/HCPCS: 94060; 94726; 94729

== ENCOUNTER 2021-09-26 17:48 | Outpatient (REF) | payer MEDICARE, MEDICAID, SELFPAY | END 2021-09-26 17:49 | disposition home or self-care (01) | LOC: NCHCN 17:48 | PROVIDERS: PCP Nurse Practitioner Family; Visit Provider Nurse Practitioner Family | DX: N39.0 Urinary tract infection, site not specified (principal) | CPT/HCPCS: 87086 ==

== ENCOUNTER 2021-10-03 09:13 | Outpatient (REF) | payer MEDICARE, MEDICAID, SELFPAY ==
[2021-10-05 10:41] LABS: Chlamydia Result Negative (Negative); GC Result Negative (Negative)
== END 2021-10-03 09:14 | disposition home or self-care (01) ==
LOC: NCHCN 09:13
PROVIDERS: PCP Nurse Practitioner Family; Visit Provider Nurse Practitioner Family
DX: N39.0 Urinary tract infection, site not specified (principal); Z11.3 Encounter for screening for infections with a predominantly sexual mode of transmission; R30.0 Dysuria; Z72.51 High risk heterosexual behavior
CPT/HCPCS: 87491; 87591; 87086; 87480; 87510; 87660

== ENCOUNTER → 2021-10-11 09:48 | Outpatient (BNVA) | payer MEDICARE, MEDICAID, SELFPAY | PROVIDERS: PCP Nurse Practitioner Family; Referring Provider Nurse Practitioner Family; Visit Provider Urology | DX: R30.0 Dysuria (principal); N95.2 Postmenopausal atrophic vaginitis; M62.89 Other specified disorders of muscle; J44.9 Chronic obstructive pulmonary disease, unspecified; Z86.718 Personal history of other venous thrombosis and embolism; K59.09 Other constipation | CPT/HCPCS: 81003; 99215 ==

== ENCOUNTER 2021-12-12 09:37 | Outpatient (REF) | payer MEDICARE, MEDICAID, SELFPAY ==
[2021-12-12 12:25] LABS: HCT 52.1 % (36.0-46.0); HGB 17.4 g/dL (11.2-15.7); MCH 35.6 pg (27.0-33.0); MCHC 33.4 % (32.0-36.0); MCV 106.5 fL (80-95); MPV 9.8 fL (8.0-11.0); Platelet Count 211 10^3/uL (130-400); RBC 4.89 10^6/uL (3.93-5.22); RDW 12.5 % (11.7-14.6); WBC 6.29 10^3/uL (4.4-10.8)
[2021-12-12 12:43] LABS: ALT 31 U/L (14-59); AST 19 U/L (15-37); Anion Gap 7.2 mmol/L (3-11); BUN 21 mg/dL (7-18); CO2 29.8 mmol/L (21.0-32.0); CREATININE 0.6 mg/dL (0.55-1.02); Calcium 8.8 mg/dL (8.5-10.1); Chloride 101 mmol/L (98-107); Glucose 94 mg/dL (74-106); HDL Cholesterol 54 mg/dL (40-60); LDL CHOLESTEROL 79 mg/dL (<100); Potassium 4.1 mmol/L (3.5-5.1); Sodium 138 mmol/L (136-145)
[2021-12-12 12:57] LABS: Creatine Kinase 91 U/L (26-192)
== END 2021-12-12 09:38 | disposition home or self-care (01) ==
LOC: NCHCN 09:37
PROVIDERS: PCP Nurse Practitioner Family; Visit Provider Nurse Practitioner Family
DX: E78.5 Hyperlipidemia, unspecified (principal); D64.9 Anemia, unspecified; D75.1 Secondary polycythemia
CPT/HCPCS: 80048; 82550; 83721; 85027; 83718; 84450; 84460

== ENCOUNTER 2022-03-07 09:07 | Emergency (ER) | payer MEDICARE, MEDICAID, SELFPAY ==
[2022-03-07 09:10] VITALS: BP 175/78; PULSE 86; RESP 16; TEMP 36.2; O2SAT 90
--- NOTE | 2022-03-07 09:15 | DI.RAD_ITS ---
Exam(s) XR HAND LT COMPLETE EXAM: XR HAND LT COMPLETE CLINICAL HISTORY: hit hand on steering wheel, pain 1st MCP, r/o fx. TECHNIQUE: 2D digital imaging was performed. COMPARISON: CR LEFT HAND COMPLETE from 10/28/2012 FINDINGS: 3 views There is a deformity at the base of the thumb metacarpal which was not present in 2013 and which has the appearance of an oblique fracture at this level, possibly not acute. Correlation with site of te nderness and clinical history recommended. No other fractures identified. No radiopaque foreign bod y. No osseous lesions. IMPRESSION: DATA REPOSITORY: RADIATION DOSE DELIVERED:
--- NOTE | 2022-03-07 09:15 | DI.RAD_ITS ---
Exam(s) XR WRIST LT COMPLETE EXAM: XR WRIST LT COMPLETE CLINICAL HISTORY: hit hand on steering wheel, r/o fx. TECHNIQUE: 2D digital imaging was performed. COMPARISON: No exams were available for comparison FINDINGS: 3 views There is an oblique fracture of the base of the thumb metacarpal. Minimal displacement. No other fr actures identified in the wrist. No carpal dislocation. No significant ulnar variance. IMPRESSION: Thumb metacarpal base fracture. DATA REPOSITORY: RADIATION DOSE DELIVERED:
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
[2022-03-07] MEDS: Acetaminophen 500 MG TAB 1000 MG PO (09:53)
--- NOTE | 2022-03-07 09:57 | NUR.NOTE ---
pt has used NS to rinse out mouth. JM
[2022-03-07] MEDS: Lidocaine 1% Multi-Dose 50 ML VIAL (10:39)
[2022-03-07] MEDS: Penicillin V POTASSIUM 500 MG TAB PO (10:39)
[2022-03-07 11:51] VITALS: BP 152/69; PULSE 62; RESP 16; O2SAT 90
== END 2022-03-07 11:52 | disposition home or self-care (01) ==
PROVIDERS: Emergency Provider Physician Assistant; PCP Nurse Practitioner Family
DX: S62.292A Other fracture of first metacarpal bone, left hand, initial encounter for closed fracture (principal); S01.512A Laceration without foreign body of oral cavity, initial encounter; V47.5XXA Car driver injured in collision with fixed or stationary object in traffic accident, initial encounter; J44.9 Chronic obstructive pulmonary disease, unspecified; F17.210 Nicotine dependence, cigarettes, uncomplicated
CPT/HCPCS: 99284; 73110; 73130; 99283; J3490

== ENCOUNTER 2022-03-11 08:40 | Outpatient (CLI) | payer MEDICARE, MEDICAID, SELFPAY ==
[2022-03-11 11:58] LABS: Source Nasal/Nares
[2022-03-11 16:19] LABS: COVID-19 PCR Negative (Negative)
== END 2022-03-11 08:41 | disposition home or self-care (01) ==
LOC: LBO 08:40
PROVIDERS: PCP Nurse Practitioner Family; Visit Provider Student in an Organized Health Care Education/Training Program
DX: Z20.822 Contact with and (suspected) exposure to COVID-19 (principal); Z01.818 Encounter for other preprocedural examination
CPT/HCPCS: 87635; 99214; U0005; 73140

== ENCOUNTER 2022-03-11 08:42 | Outpatient (CLI) | payer MEDICARE, MEDICAID, SELFPAY ==
--- NOTE | 2022-03-11 08:00 | DI.RAD_ITS ---
Exam(s) XR THUMB LT EXAM: XR THUMB LT CLINICAL HISTORY: f/u left thumb fracture. TECHNIQUE: 2D digital imaging was performed. Three views. COMPARISON: Left thumb 07 March 2022 FINDINGS: A splint is in place. There has been no change in alignment of the intra-articular fracture at the b ase of the 1st metacarpal. No new abnormalities are seen. DATA REPOSITORY: RADIATION DOSE DELIVERED:
== END 2022-03-11 08:43 | disposition home or self-care (01) ==
LOC: DIORS 08:42
PROVIDERS: PCP Nurse Practitioner Family; Referring Provider Nurse Practitioner Family; Visit Provider Physician Assistant
DX: S62.233A Other displaced fracture of base of first metacarpal bone, unspecified hand, initial encounter for closed fracture (principal); X58.XXXA Exposure to other specified factors, initial encounter
CPT/HCPCS: 99214; 73140

== ENCOUNTER 2022-03-12 11:46 | Day surgery (SDC) | payer MEDICARE, MEDICAID, SELFPAY ==
[2022-03-12 12:26] VITALS: BP 147/81; PULSE 80; RESP 18; TEMP 36.5; O2SAT 92
[2022-03-12] MEDS: Lactated Ringers 1,000 ML 80 ML IV (12:45)
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
[2022-03-12 13:00] VITALS: BMI 16.9
--- NOTE | 2022-03-12 13:30 | DI.RAD_ITS ---
Exam(s) XR THUMB LT EXAM: XR THUMB LT CLINICAL HISTORY: PINNING. TECHNIQUE: 2D digital imaging was performed. COMPARISON: No exams were available for comparison FINDINGS: Fluoroscopy was provided during orthopedic procedure left thumb. See procedure report for details. Fluoroscopy time 35 seconds Cumulative dose 0.1691mGY IMPRESSION: DATA REPOSITORY: RADIATION DOSE DELIVERED:
--- NOTE | 2022-03-12 13:55 | W.PM.DSUDISC ---
Discharge Plan Disposition Patient Disposition: HOME Condition: Good Discharge Details Reason For Visit: (L) AGUSTO RYAN Attending Provider: Willie Molina Primary Care Provider: Arline Miguel Home Meds and New Rx's Prescriptions: New hydrocodone-acetaminophen 5-325 mg tablet 1 tab PO Q6H PRN (Reason: severe pain) Qty: 6 0RF Rx Instructions: Take one tablet up to every 6 hours as needed for severe postoperative pain acetaminophen 500 mg tablet 500 mg PO Q6H PRN (Reason: pain) Qty: 60 2RF Continued bupropion HCl [Wellbutrin SR] 150 mg tablet sustained-release 12 hr 150 mg PO DAILY 90 Days Qty: 180 3RF Rx Instructions: Take 1 tab daily for 3 days and then increase to 1 tab twice a day loratadine 10 MG tablet,disintegrating 10 mg PO DAILY simvastatin 10 MG tablet 10 mg PO DAILY gabapentin 300 MG capsule 300 mg PO QAM calcium citrate 250 MG tablet 500 mg PO DAILY cholecalciferol (vitamin D3) [Vitamin D3] 2,000 UNIT tablet 2,000 unit PO DAILY Breztri Aerosphere 160-9-4.8 mcg/actuation HFA aerosol inhaler See Rx Instructions .ROUTE .COMPLEX Qty: 10.7 12RF Dose Instruction: INHALE 2 PUFFS BY MOUTH TWICE DAILY FOR COPD Rx Instructions: INHALE 2 PUFFS BY MOUTH TWICE DAILY FOR COPD gabapentin 400 mg capsule 400 mg PO QPM Label Comments: TAKE 1 CAPSULE BY MOUTH EVERY EVENING. polyethylene glycol 3350 17 gram powder in packet 255 g PO DAILY PRN Rx Instructions: Mix 255 gm in 64 oz of gatorade or juice. Drink as directed albuterol sulfate 1.25 mg/3 mL Solution For Nebulization 1.25 mg INHALATION QID PRN clopidogrel 75 mg tablet 75 mg PO HS Label Comments: TAKE 1 TABLET BY MOUTH DAILY ferrous sulfate 325 mg (65 mg iron) tablet 325 mg PO QDAY Label Comments: TAKE 1 TABLET BY MOUTH TWICE DAILY. omeprazole 20 mg capsule,delayed release(DR/EC) 20 mg PO DAILY Label Comments: TAKE 1 CAPSULE BY MOUTH EVERY DAY albuterol sulfate 90 mcg/actuation HFA aerosol inhaler 2 puff INHALATION Q4H PRN PRN Label Comments: INHALE 2 PUFFS BY MOUTH EVERY 4 HOURS IF NEEDED hydroxyzine pamoate 25 mg capsule 25 mg PO TID PRN PRN Label Comments: ION 1 C PO TID PRF ITCHING Xarelto 2.5 mg tablet 2.5 mg PO BID Label Comments: TAKE 1 TABLET BY MOUTH TWICE DAILY penicillin V potassium 500 mg tablet 500 mg PO QID 7 Days Qty: 28 0RF Discontinued acetaminophen 325 MG tablet 325 - 650 mg PO PRN Discharge Instructions Additional Instructions: Collins Fracture Discharge Instructions Activity: You should keep the hand/wrist elevated as much as possible for the first few days. You may use the other fingers as tolerated but avoid trying to do too much too soon. You may perform light activities with the splint in place. Dressing/Cast: Your splint should stay in place at all times. Do NOT get it wet. You may loosen the DEANNA wrap if you feel it is too tight and then rewrap more loosely. Medications: - You should take Tylenol for baseline pain control. - You have been prescribed a stronger pain medication, Hydrocodone, for breakthrough pain. - You may apply ice over the wrist, just double bag so it doesn't get wet. Follow-up: 10-14 days Referrals: Willie Molina MD [ [facility] STAFF PHYSICIAN] - Equipment/Supplies: Splint Activity:: Elevate Remove Dressings/Wound Care:: Do Not Remove Shower/Bathe:: Cover Diet:: As Tolerated Discharge Orders Discharge Orders: Discharge Order (Routine); Ordered 03/12/22 Ordered By: Adele Peoples
[2022-03-12 14:20] VITALS: BP 100/65; PULSE 79; RESP 18; TEMP 36.3; O2SAT 94
--- NOTE | 2022-03-12 14:24 | W.ANESPOSTOP ---
Postoperative Evaluation Date, Time and Location Date Performed: 03/12/22 Time Performed: 14:24 Patient Location: Day Surgery Unit Vital Signs Most Recent Imported Vital Signs: Most Recent Vital Signs Temp Pulse Resp BP Pulse Ox 36.5 C 80 18 147/81 H 92 03/12/22 12:26 03/12/22 12:26 03/12/22 12:26 03/12/22 12:03/12/22 12:26 Pain Score Most Recent Pain Score: Most Recent Pain Score Pain Level 3 03/12/22 12:26 Assessment Mental Status: Awake (Alert & Oriented to Patient Baseline) Airway and Respiratory Function: Patent airway with normal (patient baseline) respiratory exam Cardiovascular Function: Hemodynamically Stable Hydration Status: Adequately Hydrated Nausea & Vomiting: No Nausea or Vomiting Pain: Pt. Denies Any Pain Peripheral Nerve Block: Regional nerve block not resolved at time of post operative discharge (Beir Block. Tourniquet is down, likely lidocaine is circulating in the system at this time. Vitals at baseline)
[2022-03-12 14:55] VITALS: BP 94/64; PULSE 80; RESP 18; TEMP 36.4; O2SAT 92
--- NOTE | 2022-03-12 17:23 | W.PM.OP ---
Date of service: 03/12/22 Time of Service: 14:15 Operative Note Operative Note DATE OF PROCEDURE: 03/12/22 PRE-OP DIAGNOSIS: Left thumb metacarpal fracture, Coon fracture PROCEDURE: Closed reduction and percutaneous pinning of left thumb metacarpal fracture SURGEON: Willie Molina ANESTHESIA TYPE: Yajaira Block Refer to Anesthesia Record ESTIMATED BLOOD LOSS: 0 COMPLICATIONS: None Patient was transported to: same day Patient's condition: stable Indications: Ely is a 56-year-old who suffered a fall onto a left hand. She suffered a Coon fracture. This was a simple articular fracture with displacement into the joint. Therefore, I recommend close reduction and pinning. I reviewed the treatment options with her including close reduction and casting versus open reduction internal fixation. I discussed the risk of proposed procedure to include bleeding, pin site infection, loss of reduction, malunion, nonunion, pain, stiffness, damage to nerves and vessels. Despite these risk, she proceed. Findings: There is a displaced fracture of the base of the thumb metacarpal which was easily reduced with gentle traction and close reduction. It was held with a .065 single pin into the trapezium. Procedure Description: Ely was greeted in the preoperative holding area. Her identity was confirmed the correct side was identified and marked. The consent was reviewed the patient and signed. She was taken back to the operating room placed in the supine position with all bony prominences well-padded. A Yajaira block was administered by anesthesia. A timeout was performed for safe surgery. 1 g of cefazolin was administered for prophylactic antibiotics. The left hand was prepped with ChloraPrep and draped in a standard fashion. A gentle reduction maneuver was then performed using traction as well as direct manipulation of the base of the thumb metacarpal reducing the metacarpal shaft next to the articular, ulnar-based, segment. This was confirmed to be appropriately reduced on the x-ray with no significant articular step-off. With this reduction being held I then placed a 0.065 inch K wire from the radial surface of the metacarpal into the trapezium. The reduction was released and held by the K wire. X-ray was used for multiple angles to confirm that the K wire was within the trapezium bicortically. The thumb was mobilized and showed no signs of gapping at the base fracture. I then cut the K wire just below the surface of the skin. I padded this area and placed her into a thumb spica splint. At the end the case Ely was doing well and the Zumbrota block was discontinued without adverse events. She is transferred back to the day surgery area in stable condition. Ely will follow-up in the office in another 7 to 10 days for removal of the splint and placement into a brace. A custom Orthoplast splint from occupational therapy could also be considered. She will have the pin for at least 4 weeks and then likely removal in the office or with MAC anesthetic in the operating room.
== END 2022-03-12 15:28 | disposition home or self-care (01) ==
PROVIDERS: PCP Nurse Practitioner Family; Visit Provider Student in an Organized Health Care Education/Training Program
PROC: (CPT 26650; principal; 2022-03-12 15:15)
PROC: (CPT 26727; 2022-03-12 15:15)
DX: S62.232A Other displaced fracture of base of first metacarpal bone, left hand, initial encounter for closed fracture (principal); W19.XXXA Unspecified fall, initial encounter; J44.9 Chronic obstructive pulmonary disease, unspecified; F17.210 Nicotine dependence, cigarettes, uncomplicated; D64.9 Anemia, unspecified; K21.9 Gastro-esophageal reflux disease without esophagitis
CPT/HCPCS: 26650; 73140; J0690; J2250

== ENCOUNTER 2022-03-25 11:49 | Outpatient (CLI) | payer MEDICARE, MEDICAID, SELFPAY ==
--- NOTE | 2022-03-25 10:00 | DI.RAD_ITS ---
Exam(s) XR THUMB LT EXAM: XR THUMB LT CLINICAL HISTORY: 1ST POST OP REDUCTION/PINNING L THUMB FRACTURE. TECHNIQUE: 2D digital imaging was performed. COMPARISON: CR XR THUMB LT from 03/11/2022 FINDINGS: 3 views There is been interval placement of a fixation pin across the base of the metacarpal of the thumb and extending into the trapezium. The previously described fracture this level exhibits satisfactory al ignment at this time when compared to the images of the 03/11/2022. IMPRESSION: DATA REPOSITORY: RADIATION DOSE DELIVERED:
== END 2022-03-25 11:50 | disposition home or self-care (01) ==
LOC: DIORS 11:49
PROVIDERS: PCP Nurse Practitioner Family; Referring Provider Nurse Practitioner Family; Visit Provider Student in an Organized Health Care Education/Training Program
DX: S62.233A Other displaced fracture of base of first metacarpal bone, unspecified hand, initial encounter for closed fracture (principal); Z47.89 Encounter for other orthopedic aftercare; X58.XXXA Exposure to other specified factors, initial encounter
CPT/HCPCS: 73140

== ENCOUNTER 2022-04-12 22:14 | Emergency (ER) | payer MEDICARE, MEDICAID, SELFPAY ==
[2022-04-12 22:20] VITALS: BP 144/72; PULSE 105; RESP 18; TEMP 36.9; O2SAT 86
[2022-04-12 22:24] VITALS: O2SAT 94
--- NOTE | 2022-04-12 23:12 | ED.GENADUL_ITS ---
Discharge Plan Disposition Patient Disposition: HOME Condition: Good Discharge Details Clinical Impression: Cellulitis of left hand Primary Care Provider: Arline Miguel ED Provider: Keaton Todd Home Meds and New Rx's Prescriptions: New cephalexin 500 mg capsule 500 mg PO QID 7 Days Qty: 28 0RF Continued bupropion HCl [Wellbutrin SR] 150 mg tablet sustained-release 12 hr 150 mg PO DAILY 90 Days Qty: 180 3RF Rx Instructions: Take 1 tab daily for 3 days and then increase to 1 tab twice a day loratadine 10 MG tablet,disintegrating 10 mg PO DAILY simvastatin 10 MG tablet 10 mg PO DAILY gabapentin 300 MG capsule 300 mg PO QAM calcium citrate 250 MG tablet 500 mg PO DAILY cholecalciferol (vitamin D3) [Vitamin D3] 2,000 UNIT tablet 2,000 unit PO DAILY Breztri Aerosphere 160-9-4.8 mcg/actuation HFA aerosol inhaler See Rx Instructions .ROUTE .COMPLEX Qty: 10.7 12RF Dose Instruction: INHALE 2 PUFFS BY MOUTH TWICE DAILY FOR COPD Rx Instructions: INHALE 2 PUFFS BY MOUTH TWICE DAILY FOR COPD gabapentin 400 mg capsule 400 mg PO QPM Label Comments: TAKE 1 CAPSULE BY MOUTH EVERY EVENING. polyethylene glycol 3350 17 gram powder in packet 255 g PO DAILY PRN Rx Instructions: Mix 255 gm in 64 oz of gatorade or juice. Drink as directed albuterol sulfate 1.25 mg/3 mL Solution For Nebulization 1.25 mg INHALATION QID PRN clopidogrel 75 mg tablet 75 mg PO HS Label Comments: TAKE 1 TABLET BY MOUTH DAILY ferrous sulfate 325 mg (65 mg iron) tablet 325 mg PO QDAY Label Comments: TAKE 1 TABLET BY MOUTH TWICE DAILY. omeprazole 20 mg capsule,delayed release(DR/EC) 20 mg PO DAILY Label Comments: TAKE 1 CAPSULE BY MOUTH EVERY DAY albuterol sulfate 90 mcg/actuation HFA aerosol inhaler 2 puff INHALATION Q4H PRN PRN Label Comments: INHALE 2 PUFFS BY MOUTH EVERY 4 HOURS IF NEEDED hydroxyzine pamoate 25 mg capsule 25 mg PO TID PRN PRN Label Comments: TK 1 C PO TID PRF ITCHING Xarelto 2.5 mg tablet 2.5 mg PO BID Label Comments: TAKE 1 TABLET BY MOUTH TWICE DAILY acetaminophen 500 mg tablet 500 mg PO Q6H PRN (Reason: pain) Qty: 60 2RF Discharge Instructions Instructions: Cellulitis (ED) Additional Instructions: At this time you have very early minimal cellulitis on the skin where the pin was. Please follow-up closely with orthopedics on Friday. Please take the antibiotic as directed. If you notice any spreading of the swelling or redness, worsening pain, fever or chills, please return immediately for reassessment. If you notice any worsening of your symptoms, or any new symptoms such as vomiting, diarrhea, fever, chills, shortness of breath, chest pain, numbness, weakness, or fainting , please return immediately to the emergency department for reevaluation. Please follow up with your primary care provider as soon as pos sible for reassessment and reevaluation. As always, it was a pleasure participating in your medical care today. Referrals: Arline Miguel [Primary Care Provider] - Cy Horn MD [ [facility] STAFF PHYSICIAN] - Willie Molina MD [ [facility] STAFF PHYSICIAN] - Medical Decision Making This is a pleasant 56-year-old female with a past medical history of COPD, GERD, arthritis, fibromyalgia, and a left hand thumb metacarpal fracture that required pinning. She was scheduled to remove the pin in 5 days with orthopedics. Over the last 24 hours she noticed some mild redness, and a transition in the pin which looks to be an early eruption at the edge of the skin. She denies any drainage or discharge. She states that she may have hit it on something a few days ago but cannot completely confirm this otherwise. Pain is made worse with palpation and movement. No other complaints at this time. Exam demonstrates what appears to be an early eruption of the pin through the skin. It has not pierced through the skin yet. No fluctuance or fluid collection below on bedside ultrasound. Certainly would not be ideal to remove the pin right now. I did contact the orthopedist on-call, Dr. Britt, he agrees with the plan for starting Keflex and close follow-up on Friday. With no evidence of systemic infection, he had no evidence of significant cellulitis on the rest of the hand, there is no indication for emergent operative management at this time. Patient will be given Keflex to go, and a prescription for home. Discussed red flags which to return. I have extensively reviewed the treatment plan and discharge instructions with the patient. I have addressed all patient concerns at this time. The patient was made aware of what symptoms to monitor for that would warrant a return to the emergency department. Discussed the plan with the patient, they demonstrate verbal understanding and agreement with our assessment and plan at this time. The documentation in this chart was dictated using [employer] dictation software. Please excuse any dictation errors. HPI General Date/Time Provider Initiated Documentation: 04/12/22 22:28 . HPI Narrative: This is a pleasant 56-year-old female with a past medical history of COPD, GERD, arthritis, fibromyalgia, and a left hand thumb metacarpal fracture that required pinning. She was scheduled to remove the pin in 5 days with orthopedics. Over the last 24 hours she noticed some mild redness, and a transition in the pin which looks to be an early eruption at the edge of the skin. She denies any drainage or discharge. She states that she may have hit it on something a few days ago but cannot completely confirm this otherwise. Pain is made worse with palpation and movement. No other complaints at this time. Related Data Home Medications Medication Instructions Recorded Confirmed calcium citrate 500 mg PO DAILY 05/02/15 04/12/22 cholecalciferol (vitamin D3) 50 2,000 unit PO DAILY 05/02/15 04/12/22 mcg (2,000 unit) tablet (Vitamin D3) gabapentin 300 mg capsule 300 mg PO QAM 05/02/15 04/12/22 loratadine 10 mg disintegrating 10 mg PO DAILY 05/02/15 04/12/22 tablet simvastatin 10 mg tablet 10 mg PO DAILY 05/02/15 04/12/22 albuterol sulfate 1.25 mg/3 mL 1.25 mg inhalation QID PRN 12/11/20 04/12/22 solution for nebulization albuterol sulfate 90 mcg/actuation 2 puff inhalation Q4H PRN PRN 12/11/20 04/12/22 aerosol inhaler clopidogrel 75 mg tablet 75 mg PO HS 12/11/20 04/12/22 ferrous sulfate 325 mg (65 mg 325 mg PO QDAY 12/11/20 04/12/22 iron) tablet gabapentin 400 mg capsule 400 mg PO QPM 12/11/20 04/12/22 hydroxyzine pamoate 25 mg capsule 25 mg PO TID PRN PRN 12/11/20 04/12/22 omeprazole 20 mg capsule,delayed 20 mg PO DAILY 12/11/20 04/12/22 release polyethylene glycol 3350 17 gram 255 g PO DAILY PRN 12/11/20 04/12/22 oral powder packet rivaroxaban 2.5 mg tablet (Xarelto) 2.5 mg PO BID 12/11/20 04/12/22 bupropion HCl 150 mg tablet,12 hr 150 mg PO DAILY Smoking cessation 05/04/21 04/12/22 sustained-release (Wellbutrin SR) 90 days #180 tabs budesonide 160 mcg-glycopyr 9 See Rx Instructions .Route 01/02/22 04/12/22 mcg-formot 4.8 mcg/actuation HFA .COMPLEX #10.7 grams inhaler (Breztri Aerosphere) acetaminophen 500 mg tablet 500 mg PO Q6H PRN pain #60 tabs 03/12/22 04/12/22 cephalexin 500 mg capsule 500 mg PO QID 7 days #28 caps 04/12/22 Previous Rx's Medication Instructions Recorded bupropion HCl 150 mg tablet,12 hr 150 mg PO DAILY Smoking cessation 05/04/21 sustained-release (Wellbutrin SR) 90 days #180 tabs budesonide 160 mcg-glycopyr 9 See Rx Instructions .Route 01/02/22 mcg-formot 4.8 mcg/actuation HFA .COMPLEX #10.7 grams inhaler (Breztri Aerosphere) acetaminophen 500 mg tablet 500 mg PO Q6H PRN pain #60 tabs 03/12/22 cephalexin 500 mg capsule 500 mg PO QID 7 days #28 caps 04/12/22 Allergies Allergy/AdvReac Type Severity Reaction Status Date / Time tramadol HCl [From Ultram] AdvReac Intermediate Nausea Verified 04/12/22 22:24 General Stated Complaint: Orthopedic CAMPOS: 3 Review of Systems All systems reviewed & are unremarkable except as noted in HPI and below PFSH All Active Problems Cellulitis of left hand (Acute) Carpal tunnel syndrome on left (Acute 05/02/15) Chest pain (Acute) COPD (chronic obstructive pulmonary disease) (Chronic) Current smoker (Acute) Respiratory failure with hypoxia (Acute) Medical History Anemia Anxiety Asthma Bladder prolapse Carpal tunnel syndrome Chronic obstructive lung disease Degenerative joint disease Depression Dysuria Fibrocystic breast disease Fibromyalgia Gastroesophageal reflux disease Hyperlipidemia Knee joint pain Low back pain syndrome Neuropathic arthritis Osteopenia Peripheral vascular disease Plantar fasciitis PTSD (post-traumatic stress disorder) Shoulder pain Tobacco abuse URI (upper respiratory infection) Surgical History Excision, Distal Clavicle (12/09/12) LEFT Hx of thrombosis of lower extremity (2012) Thrombectomy with stent placement RLE and repeat thrombectomy 2020. Open Carpal Tunnel release (07/28/15) LEFT WRIST/ Social History Smoking/Tobacco Use Status: Current every day Tobacco Type: cigarettes Smoking risk assessment performed?: Yes Alcohol Intake: never Drug use: Occasionally Substance use type: marijuana Details: Marijuana every couple of nights. Do you feel safe at home: Yes Do you feel safe in your relationship?: Yes Exam Narrative Exam Narrative: 1.Const: Well-nourished, Well-developed, appearing stated age 2.Eyes: PERRL, no conjunctival injection, and symmetrical lids. 3.ENT: Atraumatic external nose and ears. Moist MM. Neck: Symmetric, trachea midline, No thyromegaly. 4.CVS: +S1/S2, No murmurs or gallops. Peripheral pulses 2+ and equal in all extremities. Brisk capillary refill in all extremities. 5.RESP: Unlabored respiratory effort. Clear to auscultation bilaterally. No wheezes rales or rhonchi 6.GI: Soft, Nontender/Nondistended, No hepatosplenomegaly. No guarding or rebound. 7.MSK: Normocephalic/Atraumatic, please see skin 8.Skin: Warm, Dry. Left thumb demonstrates a small lesion at the base, there is a scab on the top of the skin, and is slight tenting of the skin. No fluctuance or discharge. Bedside ultrasound shows no fluid collection. Minimal redness around this area. Mild pain with movement. No tracking up the wrist or arm. No sausage shaped digit, or evidence of tensor flexor or extensor synovitis. 9.Neuro: seed core operator II-XII grossly intact. Sensation grossly intact, no focal neurologic deficits. 10.Psych: (AAO) x3. Appropriate mood and affect Course Vital Signs Vital signs: Vital Signs Temperature 36.9 C 04/12/22 22:20 Pulse 105 H 04/12/22 22:20 Respiratory Rate 18 04/12/22 22:20 Blood Pressure 144/72 H 04/12/22 22:20 Pulse Oximetry 86 L 04/12/22 22:20 Temperature 36.9 C 04/12/22 22:20 Pulse 105 H 04/12/22 22:20 Respiratory Rate 18 04/12/22 22:20 Respiratory Effort 04/12/22 22:28 Blood Pressure 144/72 H 04/12/22 22:20 Blood Pressure Position Sitting 04/12/22 22:20 Pulse Oximetry 94 04/12/22 22:24 Oxygen Delivery Method Nasal Cannula 04/12/22 22:24 Oxygen Flow Rate 2 04/12/22 22:24 Pain Level 7 04/12/22 22:28
[2022-04-12] MEDS: Cephalexin 500 MG CAP PO (23:14)
[2022-04-12 23:15] VITALS: O2SAT 97
[2022-04-12] MEDS: Cephalexin 500 MG CAP, 4 CAPS/BTL PO (23:28)
[2022-04-12 23:32] VITALS: O2SAT 97
[2022-04-12 23:35] VITALS: BP 144/72; PULSE 85; RESP 18; TEMP 36.9; O2SAT 97
== END 2022-04-12 23:35 | disposition home or self-care (01) ==
PROVIDERS: Emergency Provider Student in an Organized Health Care Education/Training Program; PCP Nurse Practitioner Family
DX: L03.114 Cellulitis of left upper limb (principal); J44.9 Chronic obstructive pulmonary disease, unspecified; Z79.51 Long term (current) use of inhaled steroids; F17.210 Nicotine dependence, cigarettes, uncomplicated
CPT/HCPCS: 99283; 99284

== ENCOUNTER 2022-04-15 14:59 | Outpatient (CLI) | payer MEDICARE, MEDICAID, SELFPAY ==
--- NOTE | 2022-04-15 14:47 | DI.RAD_ITS ---
Exam(s) XR THUMB LT EXAM: XR THUMB LT CLINICAL HISTORY: follow up. TECHNIQUE: 2D digital imaging was performed. Three views. COMPARISON: None. FINDINGS: BONES: The pin has been removed from the base of the thumb into the trapezium. The fracture shows si gnificant interval healing. A small defect is seen at the articular surface of the base of the 1st m etacarpal. No bony destructive lesion is seen. JOINTS: No dislocation present. Degenerative changes interphalangeal joint of the thumb. SOFT TISSUE: Normal. IMPRESSION: Significant interval fracture healing status post removal of fixation pin. DATA REPOSITORY: RADIATION DOSE DELIVERED:
== END 2022-04-15 15:00 | disposition home or self-care (01) ==
LOC: DIORS 14:59
PROVIDERS: PCP Nurse Practitioner Family; Visit Provider Physician Assistant Surgical
DX: S62.233D Other displaced fracture of base of first metacarpal bone, unspecified hand, subsequent encounter for fracture with routine healing (principal); X58.XXXD Exposure to other specified factors, subsequent encounter
CPT/HCPCS: 73140

== ENCOUNTER 2022-07-03 17:18 | Emergency (ER) | payer MEDICARE, MEDICAID, SELFPAY ==
--- NOTE | 2022-07-03 17:00 | RT.EKG_ITS ---
APPROVED REPORT Exam: Resting ECG Reason for Exam: sob Patient Location: E HR:101 bpm ECG Measurements Heart Rate 101 AXIS GA 123 P 83 QRSd 97 QRS 72 QT 339 T 70 QTc 439 Conclusion Sinus tachycardia...rate> 99 Sinus. Normal axis. No STEMI. I have reviewed and interpreted ECG and agree with software generated interpretation.
[2022-07-03 17:15] VITALS: BP 183/90; PULSE 101; RESP 21; TEMP 38.6; O2SAT 96
--- NOTE | 2022-07-03 17:26 | ED.GENADUL_ITS ---
Discharge Plan Disposition Patient Disposition: HOME Condition: Improving Discharge Details Clinical Impression: Pneumonia Primary Care Provider: Arline Miguel ED Provider: [facility] Kraft Home Meds and New Rx's Prescriptions: New amoxicillin-pot clavulanate 875-125 mg tablet 1 tab PO BID 7 Days Qty: 14 0RF prednisone 20 mg tablet See Rx Instructions .ROUTE .COMPLEX Qty: 18 0RF Rx Instructions: Take 3 tabs daily for 3 days, then 2 tabs daily for 3 days, then 1 tab daily for 3 days. doxycycline hyclate 100 mg tablet 100 mg PO BID 7 Days Qty: 14 0RF Continued bupropion HCl [Wellbutrin SR] 150 mg tablet sustained-release 12 hr 150 mg PO DAILY 90 Days Qty: 180 3RF Rx Instructions: Take 1 tab daily for 3 days and then increase to 1 tab twice a day loratadine 10 MG tablet,disintegrating 10 mg PO DAILY simvastatin 10 MG tablet 10 mg PO DAILY gabapentin 300 MG capsule 300 mg PO QAM calcium citrate 250 MG tablet 500 mg PO DAILY cholecalciferol (vitamin D3) [Vitamin D3] 2,000 UNIT tablet 2,000 unit PO DAILY Breztri Aerosphere 160-9-4.8 mcg/actuation HFA aerosol inhaler See Rx Instructions .ROUTE .COMPLEX Qty: 10.7 12RF Dose Instruction: INHALE 2 PUFFS BY MOUTH TWICE DAILY FOR COPD Rx Instructions: INHALE 2 PUFFS BY MOUTH TWICE DAILY FOR COPD gabapentin 400 mg capsule 400 mg PO QPM Label Comments: TAKE 1 CAPSULE BY MOUTH EVERY EVENING. polyethylene glycol 3350 17 gram powder in packet 255 g PO DAILY PRN Rx Instructions: Mix 255 gm in 64 oz of gatorade or juice. Drink as directed albuterol sulfate 1.25 mg/3 mL Solution For Nebulization 1.25 mg INHALATION QID PRN clopidogrel 75 mg tablet 75 mg PO HS Label Comments: TAKE 1 TABLET BY MOUTH DAILY ferrous sulfate 325 mg (65 mg iron) tablet 325 mg PO QDAY Label Comments: TAKE 1 TABLET BY MOUTH TWICE DAILY. omeprazole 20 mg capsule,delayed release(DR/EC) 20 mg PO DAILY Label Comments: TAKE 1 CAPSULE BY MOUTH EVERY DAY albuterol sulfate 90 mcg/actuation HFA aerosol inhaler 2 puff INHALATION Q4H PRN PRN Label Comments: INHALE 2 PUFFS BY MOUTH EVERY 4 HOURS IF NEEDED hydroxyzine pamoate 25 mg capsule 25 mg PO TID PRN PRN Label Comments: TK 1 C PO TID PRF ITCHING Xarelto 2.5 mg tablet 2.5 mg PO BID Label Comments: TAKE 1 TABLET BY MOUTH TWICE DAILY acetaminophen 500 mg tablet 1,000 mg PO Q6H PRN (Reason: pain) Discharge Instructions Instructions: Pneumonia (ED) Additional Instructions: Your imaging today revealed that you likely have pneumonia. Prescriptions for steroids and 2 antibiotics have been sent electronically to your pharmacy to take as directed until finished. Use albuterol inhaler and nebulizer machine as needed and directed for shortness of breath. Follow-up with your primary care doctor in 1 week. Return to the emergency department with any worsening or new concerning symptoms. Discharge Data Discharge Physician: [facility] Kraft Medical Decision Making 1719 -- 56-year-old female with a history of chronic tobacco smoking, COPD on 2 L nasal cannula oxygen presents for increasing shortness of breath, nasal congestion, fever 100.3 and poor appetite for the past 2 days. Patient is speaking in 2-3 word sentences. Her oxygen saturation is 96% on her 2 L nasal cannula oxygen. Temp 101.5. Her lungs sound clear throughout without wheezing or rhonchi. She has no lower extremity swelling. Differential diagnosis includes pneumonia, influenza, bronchitis, COVID. History of presentation does not appear consistent with PE, ACS or dissection. Will obtain screening labs, portable chest x-ray, fluvid, and give a DuoNeb and dose of IV Tylenol 1829 --labs and imaging reviewed. White blood cell count 12. Hemoglobin 16, similar to previous. Magnesium 1.4, will replete. Troponin negative. Fluvid negative. Patient reassessed and she feels better after DuoNeb. She has minimal wheezing scattered throughout. Will order dose of IV Solu-Medrol. Chest x-ray not yet obtained. 1944 --patient reassessed and feels much better. Oxygen saturation 95% on her baseline 2 L nasal cannula oxygen. Daughter in law at bedside expressed concern for possible PE. Discussed that in the setting of fever, nasal congestion and what appears to be bronchitis on the chest x-ray, suspect her presentation is more infectious and considering she is already taking Xarelto, a PE would be unlikely. Patient states she did not take her Xarelto this morning. Patient states she would like to go home. Disposition decision made weighing the risks and benefits of hospitalization versus outpatient treatment, the risk for further decompensation, and the patient's wishes. CT chest obtained as patient would like to go home to rule out PE which was negative but notes a new mild multilobar pneumonia. Patient again feels much better and would like to go home. Lactate and blood cultures obtained will cover with Augmentin and doxycycline. Prescriptions for Augmentin, doxycycline and prednisone sent politically to her pharmacy. She was given an albuterol inhaler to go. [id number] also requested a urinalysis to be obtained as she has a history of UTIs. Advised to follow up with the primary care doctor for re-evaluation. Usual and customary return precautions given prior to discharge. Medical Records Medical records reviewed: Yes I reviewed the patient's medical records. Imaging Data Radiologic Study: Radiologist's impression: XR Chest Exam date and time: 07/03/2022 18:45 Age: 56 years old Clinical indication: Cough and fever and shortness of breath; Additional info: Fever, cough, R/O acute disease TECHNIQUE: Imaging protocol: Radiologic exam of the chest. Views: 2 views. COMPARISON: CT [facility] CTA 12/11/2020 13:48 FINDINGS: Lungs: Emphysema. Moderate interstitial pulmonary opacities are basilar predominant. Pleural spaces: No pleural effusion. No pneumothorax. Heart/Mediastinum: No cardiomegaly. Bones/joints: No acute fracture.? IMPRESSION: Emphysema.? Interstitial disease suggests bronchitis over atypical infection or pneumonitis. CTA Chest With Contrast Exam date and time: 07/03/2022 19:55 Age: 56 years old Clinical indication: Shortness of breath; Additional info: SOB, R/O pe TECHNIQUE: Imaging protocol: Computed tomographic angiography of the chest with contrast. 3D rendering (Not supervised by radiologist): MIP and/or 3D reconstructed images were created by the technologist. Radiation optimization: All CT scans at this facility use at least one of these dose optimization techniques: automated exposure control; mA and/or kV adjustment per patient size (includes targeted exams where dose is matched to clinical indication); or iterative reconstruction. Contrast material: OMNI 350; Contrast volume: 100 ml; Contrast route: INTRAVENOUS (IV);? COMPARISON: CT [facility] CTA 12/11/2020 13:48 FINDINGS: Pulmonary arteries: No pulmonary emboli. Aorta: No aortic aneurysm. No aortic dissection. Lungs: Numerable tiny centrilobular pattern nodules, both lung bases, left greater than right, involving at least 4 lobes. New since prior. The lungs are hyperinflated. Mild pulmonary emphysema similar to prior. There is a more conspicuous nodular density measuring up to 8 mm in the right lower lobe. Follow-up as per institutional protocol. Pleural spaces: No pneumothorax. No pleural effusion. Heart: No cardiomegaly. No pericardial effusion. Lymph nodes: No enlarged lymph nodes. Bones/joints: No acute fracture. Soft tissues: No suspicious lesions.? IMPRESSION: 1. New mild multilobar pneumonia. 2. No pulmonary emboli are seen. 3. Additional findings as described. Lab Data Lab results reviewed: Yes I reviewed the patient's lab results. ECG Data Attestation: I personally reviewed and interpreted this ECG (s) as follows: Interpretation: Rate of 101, sinus, normal axis, no STEMI. HPI General Mode of arrival: ambulatory . Date/Time Provider Initiated Documentation: 07/03/22 17:35 . Limitations to Documentation: no limitations . Information obtained by: patient . HPI Narrative: Patient is a 56-year-old female with history of tobacco smoking and COPD chronically on 2 L nasal cannula oxygen for several years presents with progressive shortness of breath, nasal congestion, fever 100.3 and decreased appetite over the past 2 days. Patient states she has a chronic cough and states this is no worse than usual and denies any green sputum or hemoptysis. EMS reported a temp of 101. Patient states her last dose of Tylenol was 10 AM this morning. She states she has received a total of 3 COVID vaccines and denies any known exposure to coronavirus. She admits to headache but denies any sore throat, chest pain, vomiting or diarrhea. Related Data Home Medications Medication Instructions Recorded Confirmed calcium citrate 500 mg PO DAILY 05/02/15 07/03/22 cholecalciferol (vitamin D3) 50 2,000 unit PO DAILY 05/02/15 07/03/22 mcg (2,000 unit) tablet (Vitamin D3) gabapentin 300 mg capsule 300 mg PO QAM 05/02/15 07/03/22 loratadine 10 mg disintegrating 10 mg PO DAILY 05/02/15 07/03/22 tablet simvastatin 10 mg tablet 10 mg PO DAILY 05/02/15 07/03/22 albuterol sulfate 1.25 mg/3 mL 1.25 mg inhalation QID PRN 12/11/20 07/03/22 solution for nebulization albuterol sulfate 90 mcg/actuation 2 puff inhalation Q4H PRN PRN 12/11/20 07/03/22 aerosol inhaler clopidogrel 75 mg tablet 75 mg PO HS 12/11/20 07/03/22 ferrous sulfate 325 mg (65 mg 325 mg PO QDAY 12/11/20 07/03/22 iron) tablet gabapentin 400 mg capsule 400 mg PO QPM 12/11/20 07/03/22 hydroxyzine pamoate 25 mg capsule 25 mg PO TID PRN PRN 12/11/20 07/03/22 omeprazole 20 mg capsule,delayed 20 mg PO DAILY 12/11/20 07/03/22 release polyethylene glycol 3350 17 gram 255 g PO DAILY PRN 12/11/20 07/03/22 oral powder packet rivaroxaban 2.5 mg tablet (Xarelto) 2.5 mg PO BID 12/11/20 07/03/22 bupropion HCl 150 mg tablet,12 hr 150 mg PO DAILY Smoking cessation 05/04/21 07/03/22 sustained-release (Wellbutrin SR) 90 days #180 tabs budesonide 160 mcg-glycopyr 9 See Rx Instructions .Route 01/02/22 07/03/22 mcg-formot 4.8 mcg/actuation HFA .COMPLEX #10.7 grams inhaler (Breztri Aerosphere) acetaminophen 500 mg tablet 1,000 mg PO Q6H PRN pain 07/03/22 07/03/22 amoxicillin 875 mg-potassium 1 tab PO BID 7 days #14 tabs 07/03/22 clavulanate 125 mg tablet doxycycline hyclate 100 mg tablet 100 mg PO BID 7 days #14 tabs 07/03/22 prednisone 20 mg tablet See Rx Instructions .Route 07/03/22 .COMPLEX #18 tabs Previous Rx's Medication Instructions Recorded bupropion HCl 150 mg tablet,12 hr 150 mg PO DAILY Smoking cessation 05/04/21 sustained-release (Wellbutrin SR) 90 days #180 tabs budesonide 160 mcg-glycopyr 9 See Rx Instructions .Route 01/02/22 mcg-formot 4.8 mcg/actuation HFA .COMPLEX #10.7 grams inhaler (Breztri Aerosphere) amoxicillin 875 mg-potassium 1 tab PO BID 7 days #14 tabs 07/03/22 clavulanate 125 mg tablet doxycycline hyclate 100 mg tablet 100 mg PO BID 7 days #14 tabs 07/03/22 prednisone 20 mg tablet See Rx Instructions .Route 07/03/22 .COMPLEX #18 tabs Allergies Allergy/AdvReac Type Severity Reaction Status Date / Time tramadol HCl [From Ultram] AdvReac Intermediate Nausea Verified 07/03/22 17:39 General Stated Complaint: SOB CAMPOS: 3 Review of Systems All systems reviewed & are unremarkable except as noted in HPI and below Constitutional Constitutional: Denies chills, Denies excessive sweating, Denies fatigue, Denies fever(s), Reports headache(s), Denies weakness and Denies weight loss Eyes Eyes: Reports system reviewed and no additional complaints, except as documented and Denies blurry vision ENT Ears, Nose, Mouth, and Throat: Denies vertigo, Denies dizziness, Denies otalgia, Reports headache(s), Reports nasal congestion, Denies sore throat and Denies throat swelling Cardiovascular Cardiovascular: Denies chest pain, Denies syncope, Denies rapid heart rate and Reports dyspnea Respiratory Respiratory: Denies chest congestion, Reports cough, Denies pain on inspiration and Reports dyspnea Gastrointestinal Gastrointestinal: Denies abdominal pain, Denies diarrhea and Denies vomiting Genitourinary Genitourinary: Denies hematuria, Denies dysuria and Denies flank pain Musculoskeletal Musculoskeletal: Denies back pain and Denies joint swelling Integumentary/Breasts Skin/Breast: Denies lesions and Denies rash Neurologic Neurologic: Denies behavioral changes, Denies confusion, Denies vertigo, Denies dizziness, Denies syncope, Reports headache(s), Denies localized weakness and Denies weakness Psychiatric Psychiatric: Denies behavioral changes, Denies confusion and Denies depression Endocrine Endocrine: Denies excessive sweating and Denies fatigue Hematologic/Lymphatic Hematologic/Lymphatic: Denies easy bruising and Denies lymphadenopathy Allergic/Immunologic Allergic/Immunologic: Denies throat swelling PFSH All Active Problems (Updated 07/03/22 @ 20:20 by Mercy Kraft DO) Pneumonia (Acute) Carpal tunnel syndrome on left (Acute 05/02/15) Chest pain (Acute) COPD (chronic obstructive pulmonary disease) (Chronic) Current smoker (Acute) Respiratory failure with hypoxia (Acute) Medical History Anemia Anxiety Asthma Bladder prolapse Carpal tunnel syndrome Chronic obstructive lung disease Degenerative joint disease Depression Dysuria Fibrocystic breast disease Fibromyalgia Gastroesophageal reflux disease Hyperlipidemia Knee joint pain Low back pain syndrome Neuropathic arthritis Osteopenia Peripheral vascular disease Plantar fasciitis PTSD (post-traumatic stress disorder) Shoulder pain Tobacco abuse URI (upper respiratory infection) Surgical History Excision, Distal Clavicle (12/09/12) LEFT Hx of thrombosis of lower extremity (2012) Thrombectomy with stent placement RLE and repeat thrombectomy 2020. Open Carpal Tunnel release (07/28/15) LEFT WRIST/ Social History Smoking/Tobacco Use Status: Current every day Tobacco Type: cigarettes Smoking risk assessment performed?: Yes Alcohol Intake: never Drug use: Occasionally Substance use type: marijuana Details: Marijuana every couple of nights. Do you feel safe at home: Yes Do you feel safe in your relationship?: Yes Exam Const General: cooperative Orientation: alert, awake and oriented x3 HENMT Head: normal to inspection Ears: hearing grossly normal bilaterally, external ears normal and TM's normal bilaterally General nose exam: external nose normal Face and sinus: normal facial exam Mouth: oral mucosae normal Throat: posterior oropharynx normal Eyes General: appearance normal, both eyes and all related structures Eyelids: eyelids normal Pupils: PERRL EOM: EOM intact bilaterally Neck Neck: normal visual inspection Lymphatic: no lymphadenopathy noted Chest Chest: normal inspection of the chest Resp Effort & Inspection: normal respiratory effort and able to speak in complete sentences Auscultation: clear to auscultation bilaterally Cardio Rate: tachycardic Rhythm: regular rhythm GI Inspection: normal to inspection Palpation: soft, not firm, no guarding, no hepatosplenomegaly, no masses and nontender Auscultation: normal bowel sounds Back/Spine/Pelvis Back: no CVA tenderness Skin General skin exam: no rashes or lesions noted Neuro General: patient alert and patient awake Cognition: normal cognition Speech: speech normal Gait: normal gait Motor: muscle tone normal throughout Sensory Exam: no sensory deficits noted Extrem General: normal to inspection, full ROM, capillary refill normal and no edema Psych Appearance: grossly normal Mental Status: mental status grossly normal Speech and Movement: speech and movement normal Affect: normal affect Thought Process: normal
[2022-07-03 17:37] LABS: Abs Immature Grans 0.04 10^3/uL (0.0-0.06); Absolute Basophil Count 0.06 10^3/uL (0.0-0.2); Absolute Eosinophil Count 0.01 10^3/uL (0.0-0.7); Absolute Lymphocyte Count 0.58 10^3/uL (1.2-3.4); Basophils % 0.5; Eosinophils % 0.1; HCT 47.7 % (36.0-46.0); HGB 16.4 g/dL (11.2-15.7); Immature Grans % 0.3; Lymphocytes % 4.8; MCH 36.2 pg (27.0-33.0); MCHC 34.4 % (32.0-36.0); MCV 105 fL (80-95); MPV 9.5 fL (8.0-11.0); Monocytes % 15.7; Neutrophils % 78.6; Platelet Count 186 10^3/uL (130-400); RBC 4.53 10^6/uL (3.93-5.22); RDW 11.8 % (11.7-14.6); RDW-SD 46.5 fL; WBC 12.14 10^3/uL (4.4-10.8)
[2022-07-03 17:42] VITALS: RESP 16
[2022-07-03 17:46] VITALS: O2SAT 95
[2022-07-03 17:53] LABS: Absolute Monocyte Count 1.91 10^3/uL (0.1-0.8); Absolute Neutrophil Count 9.54 10^3/uL (1.2-6.7)
[2022-07-03 17:58] LABS: ALT 30 U/L (14-59); AST 21 U/L (15-37); Albumin 3.6 g/dL (3.4-5.0); Alkaline Phosphatase 83 U/L (46-116); Anion Gap 7.9 mmol/L (3-11); BUN 10 mg/dL (7-18); Bilirubin, Total 0.7 mg/dL (0.2-1.0); CO2 29.1 mmol/L (21.0-32.0); CREATININE 0.5 mg/dL (0.55-1.02); Calcium 9.3 mg/dL (8.5-10.1); Chloride 95 mmol/L (98-107); Estimated GFR 110.01 (mL/min/1.73m2); Glucose 99 mg/dL (74-106); Magnesium 1.4 mg/dL (1.8-2.4); Potassium 3.8 mmol/L (3.5-5.1); Sodium 132 mmol/L (136-145); Total Protein 8.3 g/dL (6.4-8.2); Troponin I < 50 ng/L (<or=60)
[2022-07-03] MEDS: Normal Saline 250 ML 500 ML IV (18:00)
[2022-07-03] MEDS: Albuterol/Ipratropium 3 ML UPD VIAL UPD (18:05)
[2022-07-03 18:07] LABS: Diff Comment Agrees w/ Instrument; Macrocytosis 1+
[2022-07-03 18:15] LABS: COVID-19 PCR Negative (Negative); Influenza A PCR Negative (Negative); Influenza B PCR Negative (Negative); RSV PCR Negative (Negative)
[2022-07-03 18:22] LABS: Source Nasopharynx
[2022-07-03 18:25] VITALS: TEMP 38.6
[2022-07-03] MEDS: ACETAMINOPHEN 1,000 MG/100 ML BTL 400 MG IVPB (18:25)
--- NOTE | 2022-07-03 18:30 | DI.RAD_ITS ---
Exam(s) XR CHEST 2V PA LATERAL EXAM: XR CHEST 2V PA LATERAL CLINICAL HISTORY: fever, cough, r/o acute disease TECHNIQUE: COMPARISON: CR XR CHEST 2V PA LATERAL from 06/26/2018 FINDINGS: Heart is not enlarged. There are marked changes of pulmonary hyperinflation which appears to be lap runner slim consistent with COPD. In comparison with prior examination of May 2018, there is marked in terval increase in predominantly interstitial bilateral patchy radiodensities suggesting an acute int erstitial process, viral pneumonia should be considered. Appropriate follow-up films requested. IMPRESSION: RADIATION DOSE DELIVERED: Total DLP
[2022-07-03] MEDS: MAGNESIUM SULFATE 2 GM/50 ML BAG IVPB (18:48)
[2022-07-03] MEDS: methylPREDNISolone SUCC 125 MG VIAL 80 MG IVP (19:05)
--- NOTE | 2022-07-03 19:14 | DI.VRAD_ITS ---
PROCEDURE INFORMATION: Exam: XR Chest Exam date and time: 07/03/2022 18:45 Age: 56 years old Clinical indication: Cough and fever and shortness of breath; Additional info: Fever, cough, R/O acute disease TECHNIQUE: Imaging protocol: Radiologic exam of the chest. Views: 2 views. COMPARISON: CT [facility] CTA 12/11/2020 13:48 FINDINGS: Lungs: Emphysema. Moderate interstitial pulmonary opacities are basilar predominant. Pleural spaces: No pleural effusion. No pneumothorax. Heart/Mediastinum: No cardiomegaly. Bones/joints: No acute fracture. IMPRESSION: Emphysema. Interstitial disease suggests bronchitis over atypical infection or pneumonitis. Dictated and Authenticated by: Hortensia Dalal MD. Ordering:TERESA Madrid MD
--- NOTE | 2022-07-03 19:30 | DI.CT_ITS ---
Exam(s) CT CHEST PE CTA EXAM: CT CHEST PE CTA CLINICAL HISTORY: sob, r/o PE. TECHNIQUE: Imaging Protocol: Axial CT angiography was performed with multi-slice acquisition and mu lti-planar and/or 3D reconstructions. CONTRAST MATERIAL: Intravenous: Omnipaque 350 Contrast volume:structured data in ml COMPARISON: CT CT TH[facility]AX CTA from 12/11/2020 FINDINGS: CT angiography of the chest was performed with intravenous infusion of 100 cc of Omnipaque 350. There are bilateral multilobar patchy pulmonary opacities which were not present on prior examination of November 2020. Nodular radiodensity in the right lower lobe is nonspecific but likely related to th e patchy consolidative process, malignancy not absolutely excluded. No pleural effusion. Tracheobron chial tree appears intact. No evidence of pulmonary embolic disease. Thoracic aorta is of normal diameter, no thoracic aortic an eurysm or dissection, major branch vessels appear intact. No mediastinal or hilar adenopathy. Images obtained through the upper abdomen show unremarkable appearance of the visualized portions of the liver, spleen, pancreas, adrenals, and kidneys. IMPRESSION: Scattered patchy pulmonary opacities suggestive of pneumonitis. Mild septal prominence, nonspecific. 8 millimeter right lower lobe nodule, likely also related to acute process, but malignancy not excl uded and follow-up chest CT is recommended in 6 months. No evidence of pulmonary embolic disease. RADIATION DOSE DELIVERED: 183.74mGy.cm Total DLP 183.74mGy.cm Total DLP !Error CTDIvol DATA REPOSITORY: All CT scans at this facility are submitted to the National Radiology Data Registry (NRDR) Dose Index Registry (DIR) with the [employer] (ACR). RADIATION OPTIMIZATION: All CT scans at this facility use at least one of these dose optimization te chniques: automated exposure control; mA and/or kV adjustment per patient size (includes targeted exa ms where dose is matched to clinical indication); or iterative reconstruction.
[2022-07-03] MEDS: Omnipaque 350 MG/ML 100 ML BTL IJ (19:57)
--- NOTE | 2022-07-03 20:08 | DI.VRAD_ITS ---
PROCEDURE INFORMATION: Exam: CTA Chest With Contrast Exam date and time: 07/03/2022 19:55 Age: 56 years old Clinical indication: Shortness of breath; Additional info: SOB, R/O pe TECHNIQUE: Imaging protocol: Computed tomographic angiography of the chest with contrast. 3D rendering (Not supervised by radiologist): MIP and/or 3D reconstructed images were created by the technologist. Radiation optimization: All CT scans at this facility use at least one of these dose optimization techniques: automated exposure control; mA and/or kV adjustment per patient size (includes targeted exams where dose is matched to clinical indication); or iterative reconstruction. Contrast material: OMNI 350; Contrast volume: 100 ml; Contrast route: INTRAVENOUS (IV); COMPARISON: CT [facility] CTA 12/11/2020 13:48 FINDINGS: Pulmonary arteries: No pulmonary emboli. Aorta: No aortic aneurysm. No aortic dissection. Lungs: Numerable tiny centrilobular pattern nodules, both lung bases, left greater than right, involving at least 4 lobes. New since prior. The lungs are hyperinflated. Mild pulmonary emphysema similar to prior. There is a more conspicuous nodular density measuring up to 8 mm in the right lower lobe. Follow-up as per institutional protocol. Pleural spaces: No pneumothorax. No pleural effusion. Heart: No cardiomegaly. No pericardial effusion. Lymph nodes: No enlarged lymph nodes. Bones/joints: No acute fracture. Soft tissues: No suspicious lesions. IMPRESSION: 1. New mild multilobar pneumonia. 2. No pulmonary emboli are seen. 3. Additional findings as described. Dictated and Authenticated by: Hortensia Dalal MD. Ordering:TERESA Madrid MD
[2022-07-03] MEDS: Doxycycline Hyclate 100 MG CAP PO (20:20)
[2022-07-03] MEDS: Amoxicillin 875/Clav. 125 TAB PO (20:20)
[2022-07-03 20:30] VITALS: TEMP 37.5
[2022-07-03] MEDS: Albuterol HFA 8 GM 60 PUFF INH IH (20:34)
[2022-07-03] MEDS: Amox. 875/Clav. 125, 2 TABS/BTL 1 TAB PO (20:34)
[2022-07-03] MEDS: Doxycycline Hyclate 100 MG, 2 CAPS/BTL PO (20:34)
[2022-07-03] MEDS: Inhaler, Assist Device 1 EACH MC (20:34)
[2022-07-03 20:35] LABS: Bilirubin Small (Negative); Blood Negative (Negative); Clarity Sl Cloudy (Clear); Glucose Negative (Negative); Ketones 40 mg/dL (Negative); Leukocyte Esterase Negative (Negative); Nitrite Negative (Negative); Specific Gravity 1.015 (1.005-1.025); Urobilinogen 0.2 EU/dL (Up TO 0.2)
[2022-07-03 20:43] LABS: Bacteria Few HPF (Negative); Crystals Negative HPF (Negative); Epithelial Cells Moderate HPF (Negative)
[2022-07-03 20:44] LABS: C & S Indicated? No; Mucus Trace (Negative)
[2022-07-03 21:17] LABS: Lactate 0.7 mmol/L (0.6-1.4)
== END 2022-07-03 21:26 | disposition home or self-care (01) ==
PROVIDERS: Emergency Provider Physician Assistant; PCP Nurse Practitioner Family
DX: J44.0 Chronic obstructive pulmonary disease with (acute) lower respiratory infection (principal); J18.9 Pneumonia, unspecified organism; F17.210 Nicotine dependence, cigarettes, uncomplicated; Z20.822 Contact with and (suspected) exposure to COVID-19
CPT/HCPCS: 36415; 71275; 80053; 87040; 87637; 93005; 96374; 96375; 99285; 71046; 81003; 81015; 83605; 83735; 84484; 85025; 93010; J0131; J2930; J3490; J7620

== ENCOUNTER → 2022-07-29 02:12 | Outpatient (CLI) | payer MEDICARE, MEDICAID, SELFPAY ==
--- NOTE | 2022-07-29 12:00 | DI.MAMMO_ITS ---
Exam(s) MAMMO SCREENING EXAM: MAMMO SCREENING CLINICAL HISTORY: SCREENING, Z12.39, Z12.31 TECHNIQUE: Mammograms were interpreted according to the usual protocol including computer analysis w [employer] CAD system, tomosynthesis and C-view imaging. COMPARISON: 2012 through 2019 FINDINGS: The breasts are composed of scattered fibroglandular densities, Breast Density category B. No suspicious masses or suspicious microcalcifications are seen. No skin thickening or abnormal axillary lymph nodes are seen. There has been no significant change from prior exams. IMPRESSION: BI-RADS Category 1, Negative mammogram Yearly screening mammography is recommended. Breast Density - Category B, scattered fibroglandular densities. A negative radiographic report should not delay biopsy if a dominant or clinically suspicious mass is present. Up to ten percent of cancers are not identified on mammography. A negative report may reinforce clinical impression. Adenosis and dense breasts may obscure an underlying neoplasm. False positive reports average 6 to 10%. Patient will receive a letter notifying them of these results.
== END ==
PROVIDERS: PCP Nurse Practitioner Family; Visit Provider Nurse Practitioner Family
DX: Z12.31 Encounter for screening mammogram for malignant neoplasm of breast (principal)
CPT/HCPCS: 77063; 77067

== ENCOUNTER 2022-10-07 02:53 | Outpatient (CLI) | payer MEDICARE, MEDICAID, SELFPAY ==
--- NOTE | 2022-10-07 06:30 | DI.CT_ITS ---
Exam(s) CT CHEST WO EXAM: CT CHEST WO CLINICAL HISTORY: f/u pulmonary nodules,R91.8. TECHNIQUE: Imaging protocol: Axial computed tomography images were obtained and coronal and sagittal reformatted images were created and reviewed. CONTRAST MATERIAL: Noncontrast COMPARISON: CT CT TH[facility]AX CTA from 12/11/[address] CHEST PE CTA from 07/03/2022 FINDINGS: Pulmonary parenchyma: No consolidation. Bilateral upper lobe scarring. Subpleural area of nodularity posterior left upper lobe may represent area of scarring, unchanged from prior exam. Previously noted infiltrates have resolved. No nodule seen in the right lower lobe. Emphysema: Mild upper centrilobular lobe emphysema. Tracheobronchial tree: No mucous plugging. No bronchiectasis . Pleura: No effusion or pneumothorax. Heart: The heart is not dilated. The coronary arteries show mild calcifications. Aorta: Thoracic aorta non-dilated. Mildatherosclerotic changes. Lymph nodes: No enlarged lymph nodes. Bones: Degenerative changes are seen. No evidence of compression fracture. Upper abdomen: Unremarkable. IMPRESSION: Interval resolution of previously noted bilateral infiltrates. Stable area of nodularity posterior left upper lobe likely represents an area of scarring. RADIATION DOSE DELIVERED: 319.66mGy.cm Total DLP 319.66mGy.cm Total DLP DATA REPOSITORY: All CT scans at this facility are submitted to the National Radiology Data Registry (NRDR) Dose Index Registry (DIR) with the [employer] (ACR). RADIATION OPTIMIZATION: All CT scans at this facility use at least one of these dose optimization te chniques: automated exposure control; mA and/or kV adjustment per patient size (includes targeted exa ms where dose is matched to clinical indication); or iterative reconstruction.
== END 2022-10-07 03:13 ==
LOC: DI 02:53
PROVIDERS: PCP Nurse Practitioner Family; Visit Provider Student in an Organized Health Care Education/Training Program
DX: R91.8 Other nonspecific abnormal finding of lung field (principal)
CPT/HCPCS: 71250

== ENCOUNTER 2022-10-07 03:33 | Outpatient (CLI) | payer MEDICARE, MEDICAID, SELFPAY ==
[2022-10-07] MEDS: Inhaler, Assist Device 1 EACH MC (09:01)
[2022-10-07] MEDS: Albuterol HFA 18 GM 200 PUFF INH IH (09:01)
--- NOTE | 2022-10-07 09:10 | W.PFT ---
Date of service: 10/07/22 Time of Service: 08:02 Pulmonary Function Test Result Requesting Provider Arline Miguel Indications: COPD Interpretation Spirometry: There is very severe airflow limitation. There is a significant bronchodilator response. Lung Volumes: There is air trapping and hyperinflation. Diffusion Capacity: Decreased diffusion Airway Pressure: Increased airways resistance. Impression Very severe airflow obstruction with a decreased diffusion and significant bronchodilator response. In the correct clinical context with can represent very severe COPD with emphysema or very severe Asthma-COPD Overlap syndrome. Note: As compared to 02/20/21, there has been significant worsening of all aspects of her lung function. Clinical Correlation therefore is recommended.
== END 2022-10-07 03:34 | disposition home or self-care (01) ==
LOC: RT 03:33
PROVIDERS: PCP Nurse Practitioner Family; Visit Provider Nurse Practitioner Family
DX: R94.2 Abnormal results of pulmonary function studies (principal); J44.9 Chronic obstructive pulmonary disease, unspecified; R06.09 Other forms of dyspnea; R05.9 Cough, unspecified; F17.210 Nicotine dependence, cigarettes, uncomplicated
CPT/HCPCS: 71250; 94060; 94726; 94729

== ENCOUNTER 2022-10-15 09:16 | Outpatient (REF) | payer MEDICARE, MEDICAID, SELFPAY ==
[2022-10-15 16:11] LABS: HCT 50.7 % (36.0-46.0); HGB 16.6 g/dL (11.2-15.7); MCH 35.2 pg (27.0-33.0); MCHC 32.7 % (32.0-36.0); MCV 108 fL (80-95); MPV 10.1 fL (8.0-11.0); Platelet Count 225 10^3/uL (130-400); RBC 4.71 10^6/uL (3.93-5.22); RDW 11.6 % (11.7-14.6); RDW-SD 46.2 fL; WBC 6.05 10^3/uL (4.4-10.8)
[2022-10-15 17:25] LABS: ALT 30 U/L (14-59); AST 31 U/L (15-37); HDL Cholesterol 66 mg/dL (40-60); LDL CHOLESTEROL 89 mg/dL (<100)
[2022-10-15 17:38] LABS: Creatine Kinase 103 U/L (26-192)
== END 2022-10-15 09:17 | disposition home or self-care (01) ==
LOC: NCHCN 09:16
PROVIDERS: PCP Nurse Practitioner Family; Visit Provider Nurse Practitioner Family
DX: E78.5 Hyperlipidemia, unspecified (principal); J44.9 Chronic obstructive pulmonary disease, unspecified
CPT/HCPCS: 82550; 83721; 85027; 83718; 84450; 84460

== ENCOUNTER 2023-02-18 15:49 | Outpatient (REF) | payer MEDICARE, MEDICAID, SELFPAY ==
[2023-02-18 15:32] LABS: Abs Immature Grans 0.01 10^3/uL (0.0-0.06); Absolute Basophil Count 0.06 10^3/uL (0.0-0.2); Absolute Eosinophil Count 0.09 10^3/uL (0.0-0.7); Absolute Lymphocyte Count 1.52 10^3/uL (1.2-3.4); Absolute Monocyte Count 0.87 10^3/uL (0.1-0.8); Absolute Neutrophil Count 3.84 10^3/uL (1.2-6.7); Basophils % 0.9; Eosinophils % 1.4; HCT 48.5 % (36.0-46.0); HGB 16.4 g/dL (11.2-15.7); Immature Grans % 0.2; Lymphocytes % 23.8; MCH 36.1 pg (27.0-33.0); MCHC 33.8 % (32.0-36.0); MCV 107 fL (80-95); MPV 9.9 fL (8.0-11.0); Monocytes % 13.6; Neutrophils % 60.1; Platelet Count 235 10^3/uL (130-400); RBC 4.54 10^6/uL (3.93-5.22); RDW 12.6 % (11.7-14.6); RDW-SD 50.7 fL; WBC 6.39 10^3/uL (4.4-10.8)
[2023-02-18 15:46] LABS: Anion Gap 4.5 mmol/L (3-11); BUN 13 mg/dL (7-18); CO2 33.5 mmol/L (21.0-32.0); CREATININE 0.6 mg/dL (0.55-1.02); Calcium 9.5 mg/dL (8.5-10.1); Chloride 99 mmol/L (98-107); Estimated GFR 104.63 (mL/min/1.73m2); Glucose 98 mg/dL (74-106); Potassium 4.5 mmol/L (3.5-5.1); Sodium 137 mmol/L (136-145)
[2023-02-18 16:32] LABS: Diff Comment RBC Morph Reviewed; Macrocytosis 1+
== END 2023-02-18 15:50 | disposition home or self-care (01) ==
LOC: NCHCN 15:49
PROVIDERS: PCP Nurse Practitioner Family; Visit Provider Nurse Practitioner Family
DX: M54.59 Other low back pain (principal); J44.9 Chronic obstructive pulmonary disease, unspecified
CPT/HCPCS: 80048; 85025

== ENCOUNTER 2023-03-03 02:15 | Outpatient (CLI) | payer MEDICARE, MEDICAID, SELFPAY ==
--- NOTE | 2023-03-03 | DI.MRI_ITS ---
Exam(s) MR LUMBAR SPINE WO EXAM: MR LUMBAR SPINE WO CLINICAL HISTORY: low back pain, m54.59. TECHNIQUE: Multiplanar multisequence MRI of the Lumbar spine was performed. COMPARISON: MR MRI - LUMBAR SPINE WO CONTRAST from 10/19/[address] ABD AORTA CTA W RUNOFF from 12/11/[address] CHEST PE CTA from 07/03/2022 FINDINGS: Bones: The last intervertebral disc space is designated the L5/S1 level for the numbering purpose of this examination. The vertebral body heights are well maintained. Alignment is satisfactory. The si gnal characteristics are unremarkable. Cord: The conus tip ends at the T12 level. It is of normal size and signal intensity. T12-L1: No disc herniations or bulges are present. No central spinal canal or neural foraminal stenos is. L1-2: No disc herniations or bulges are present. No central spinal canal or neural foraminal stenosis . L2-3: No disc herniations or bulges are present. No central spinal canal or neural foraminal stenosis . L3-4: No disc herniations or bulges are present. No central spinal canal or neural foraminal stenosis . L4-5: There has been a decrease in size of the right neural foraminal disc protrusion. There is stil l qfzu-gq-ceaveknu compression of the exiting nerve root at this level. No significant central spina l canal or left neural foraminal stenosis is seen. L5-S1: There is a small right paracentral disc herniation. No nerve root compression or central spin al canal stenosis results. No central spinal canal or neural foraminal stenosis. Soft tissues: The visualized SI joints and sacrum are well maintained. The paraspinal soft tissues ar e unremarkable. Visualized abdominal organs: Stable simple renal cyst. No follow-up is recommended. IMPRESSION: 1. Interval decrease in size of the right neural foraminal disc protrusion at L4-L5. There is still zwdc-sd-hezywuuo compression of the exiting nerve root at this level. 2. Small right paracentral disc herniation at L5-S1. No nerve root compression or central spinal can al stenosis is seen. DATA REPOSITORY:
== END 2023-03-03 02:35 ==
LOC: DI 02:16
PROVIDERS: PCP Nurse Practitioner Family; Visit Provider Nurse Practitioner Family
DX: M99.53 Intervertebral disc stenosis of neural canal of lumbar region (principal); M51.26 Other intervertebral disc displacement, lumbar region
CPT/HCPCS: 72148

== ENCOUNTER 2023-03-31 16:30 | Outpatient (REF) | payer MEDICARE, MEDICAID, SELFPAY ==
[2023-04-10 08:00] LABS: O-desmethyltramadol 7109 ng/mL (Cutoff:25); Tramadol 4544 ng/mL (Cutoff:25)
== END 2023-03-31 16:31 | disposition home or self-care (01) ==
LOC: NCHCN 16:30
PROVIDERS: PCP Nurse Practitioner Family; Visit Provider Nurse Practitioner Family
DX: M51.26 Other intervertebral disc displacement, lumbar region (principal)
CPT/HCPCS: 80373

== ENCOUNTER 2023-06-26 16:18 | Outpatient (REF) | payer MEDICARE, MEDICAID, SELFPAY ==
[2023-06-26 15:02] LABS: Anion Gap 3.7 mmol/L (3-11); BUN 17 mg/dL (7-18); CO2 35.3 mmol/L (21.0-32.0); CREATININE 0.7 mg/dL (0.55-1.02); Chloride 95 mmol/L (98-107); Estimated GFR 100.81 (mL/min/1.73m2); Glucose 109 mg/dL (74-106); Potassium 4.4 mmol/L (3.5-5.1); Sodium 134 mmol/L (136-145)
== END 2023-06-26 16:19 | disposition home or self-care (01) ==
LOC: NCHCN 16:18
PROVIDERS: PCP Nurse Practitioner Family; Visit Provider Nurse Practitioner Family
DX: R03.0 Elevated blood-pressure reading, without diagnosis of hypertension (principal)
CPT/HCPCS: 80048

== ENCOUNTER 2023-09-04 14:49 | Emergency (ER) | payer MEDICARE, MEDICAID, SELFPAY ==
[2023-09-04] VITALS (44 sets, daily range): BP systolic 112–195; BP diastolic 55–83; PULSE 71–98; RESP 13–30; TEMP 37.2; O2SAT 88–99
--- NOTE | 2023-09-04 15:00 | RT.EKG_ITS ---
APPROVED REPORT Exam: Resting ECG Reason for Exam: Chest Pain Patient Location: E HR:88 bpm ECG Measurements Heart Rate 88 AXIS [place] 145 P 85 QRSd 102 QRS 75 QT 346 T 69 QTc 420 Conclusion Sinus rhythm.. V-rate 60- 99 Right atrial enlargement...P>0.25mV 2 lds or<-0.24mV aVR/aVL Appropriate intervals. No ST segment or T wave abnormalities to suggest occlusive MA
--- NOTE | 2023-09-04 15:15 | DI.US_ITS ---
Exam(s) US LOWER EXTREMITY VENOUS LT EXAM: US LOWER EXTREMITY VENOUS LT CLINICAL HISTORY: r/o DVT. TECHNIQUE: Lower extremity venous ultrasound performed using grayscale, color-flow, and spectral Do ppler analysis. COMPARISON: No exams were available for comparison FINDINGS: The common femoral, femoral and popliteal veins demonstrate normal compressibility, augmentation, and color Doppler. The posterior tibial veins are patent. No saphenous vein thrombosis or other superfi cial venous thrombosis is seen. No hematoma or Sands's cyst is seen. IMPRESSION: Negative lower extremity ultrasound. No evidence of DVT. DATA REPOSITORY:
--- NOTE | 2023-09-04 15:18 | ED.GENADUL_ITS ---
Discharge Plan Disposition Patient Disposition: Transfer-Acute Inpatient Care Specific Acute Inpt Facility: [facility] Condition: Stable Discharge Details Clinical Impression: Peripheral arterial occlusive disease Primary Care Provider: Arline Miguel ED Provider: Keaton Antunez Home Meds and New Rx's Prescriptions: No Action varenicline [Chantix Starting Month Box] 0.5 mg (11)- 1 mg (42) tablets,dose pack See Rx Instructions PO PER PKG DIR Qty: 53 0RF Rx Instructions: PO PER PKG DIR loratadine 10 MG tablet,disintegrating 10 mg PO DAILY simvastatin 10 MG tablet 10 mg PO DAILY gabapentin 300 MG capsule 300 mg PO QAM calcium citrate 250 MG tablet 500 mg PO DAILY cholecalciferol (vitamin D3) [Vitamin D3] 2,000 UNIT tablet 2,000 unit PO DAILY Breztri Aerosphere 160-9-4.8 mcg/actuation HFA aerosol inhaler See Rx Instructions .ROUTE .COMPLEX Qty: 10.7 12RF Dose Instruction: INHALE 2 PUFFS BY MOUTH TWICE DAILY FOR COPD Rx Instructions: INHALE 2 PUFFS BY MOUTH TWICE DAILY FOR COPD gabapentin 400 mg capsule 400 mg PO QPM Patient Comments: TAKE 1 CAPSULE BY MOUTH EVERY EVENING. polyethylene glycol 3350 17 gram powder in packet 255 g PO DAILY PRN Rx Instructions: Mix 255 gm in 64 oz of gatorade or juice. Drink as directed albuterol sulfate 1.25 mg/3 mL Solution For Nebulization 1.25 mg INHALATION QID PRN clopidogrel 75 mg tablet 75 mg PO HS Patient Comments: TAKE 1 TABLET BY MOUTH DAILY ferrous sulfate 325 mg (65 mg iron) tablet 325 mg PO QDAY Patient Comments: TAKE 1 TABLET BY MOUTH TWICE DAILY. omeprazole 20 mg capsule,delayed release(DR/EC) 20 mg PO DAILY Patient Comments: TAKE 1 CAPSULE BY MOUTH EVERY DAY albuterol sulfate 90 mcg/actuation HFA aerosol inhaler 2 puff INHALATION Q4H PRN PRN Patient Comments: INHALE 2 PUFFS BY MOUTH EVERY 4 HOURS IF NEEDED hydroxyzine pamoate 25 mg capsule 25 mg PO TID PRN PRN Patient Comments: TK 1 C PO TID PRF ITCHING Xarelto 2.5 mg tablet 2.5 mg PO BID Patient Comments: TAKE 1 TABLET BY MOUTH TWICE DAILY acetaminophen 500 mg tablet 1,000 mg PO Q6H PRN (Reason: pain) Medical Decision Making This dictation utilizes [id number] dictation software and may contain unedited grammatical errors. 58 y/o F presents to ED today with a chief complaint of L leg pain similar to a prior contralateral DVT in remote history, and chest pains for the past 4 days. Onset and characteristics include 2 weeks of her left foot feeling cold and uncomfortable, 4 days of chest pain radiating to mid-back with questionable diaphoresis briefly days ago vs hot flash, endorses lightheadedness with her chest pain, endorses claudication in L leg. Patients' medical history: DVTs on Xarelto and Plavix, COPD on 2L O2 at baseline, plantar fasciitis, fibromyalgia, shoulder pain. Family and social history: heavy smoking history, no recent travel or sick contacts. Pertinent exam findings / vital signs include faint L foot dorsalis pedis pulse, cool to touch, delayed capillary refill- no unilateral leg swelling/skin c hanges, Megan's negative, no medial thigh tenderness, mild wheezing throughout in severe COPD, nontoxic vitals. Differential / pathologies of concern include PAD, Ischemic Limb, DVT less likely, ACS, Aortic Dissection, Raynaud's. Diagnostic studies of: -CBC, CMP, Trop I, EKG, Mg++, US L LE DVT Study, CTA Aorta w/ Runoff's. -EKG shows sinus rhythm at 88 bpm with slightly prolonged MS interval, normal axis, QTc within normal limit, no ST changes of ischemia, consistent with prior -US DVT Study negative -CBC benign for acute infectious etiology, elevated monocytes -CMP shows mild hypo-Na+, mildly low Cl-, elevated CO2 (expected in chronic COPD) -Mg++ WNL -Trop I negative with reliable onset, no ACS -CT Aorta w/ Runoffs show significant arterial disease - 3cm fusiform aneurysm, severe atherosclerotic disease abdominal and iliac/femoral- flow basically terminates in popliteals -BRE [place] could not find doppler pulses at bilateral PTAs or DPs, present popliteals > Consulting [facility] where the patient is followed for possible transfer. Images pushed by RAD Dept. -CT Thoracic Aorta CTA shows no significant atherosclerotic disease, no aneurysm Interventions of: -150mL/hr NS IVF. ED Course/Assessment/Plan: Patient with significant COPD presents with chest pain for 4 days with a negative troponin do not suspect ACS as well as left foot pain and coldness going on for about 2 weeks. 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 Patient is followed by [facility] vascular surgery, had images pushed to them to discuss with their on-call surgeon. Spoke with Dr. Macias at [facility] Vascular Surgery, Dr. Casanova Vascular attending accepts patient for direct admit. Advise hold heparin until 0700/0800 tomorrow if she has not been transported by then. NPO after midnight in case of IR possibility. Findings not consistent with necrotic foot at this time. Disposition of Peripheral Arterial Occlusive Disease. Patient verbalized understanding of the plan and return to ED criteria and engaged in shared decision making. Medical Records Medical records reviewed: Yes I reviewed the patient's medical records. Imaging Data Radiologic Study: Imaging: Ultrasound Radiologist's impression: EXAM: US LOWER EXTREMITY VENOUS LT CLINICAL HISTORY: r/o DVT. TECHNIQUE: Lower extremity venous ultrasound performed using grayscale, color- flow, and spectral Doppler analysis. COMPARISON: No exams were available for comparison FINDINGS: The common femoral, femoral and popliteal veins demonstrate normal compressibility, augmentation, and color Doppler. The posterior tibial veins are patent. No saphenous vein thrombosis or other superficial venous thrombosis is seen. No hematoma or Sands's cyst is seen. IMPRESSION: Negative lower extremity ultrasound. No evidence of DVT. Radiologic Study #2: Imaging: CT Scan Radiologist's impression: EXAM: CT ABD AORTA CTA W RUNOFF CLINICAL HISTORY: concern ischemia to L foot, also chest pain. TECHNIQUE: Imaging Protocol: Axial computed tomography images with coronal and sagittal reformatted images were created and reviewed CONTRAST MATERIAL: Intravenous: Omnipaque 350 Contrast volume:100 ml Oral: None COMPARISON: CT CT CHEST PE CTA from 07/03/2022 FINDINGS: CHEST: AORTOILIAC SEGMENTS: The abdominal aorta is atherosclerotic. There is a fusiform infrarenal abdominal aortic aneurysm with maximum diameter 2.5 cm. No evidence of aortic dissection. There are endovascular stents evident in both common carotid arteries. There also an endovascular stent in the right external iliac artery. There is some intra stent disease. However, on the left side there is critical stenosis in the left common iliac artery with only thin flow through this vessel evident. There is severe disease evident in the left common femoral artery and left SFA origin. The left SFA is a thin vessel with multilevel severe disease but appears to be continuous with a thin patent left popliteal artery. There is no evidence of popliteal artery aneurysm. The left tibioperoneal trunk is patent. There is 2 vessel runoff in the left calf. The anterior and posterior tibial arteries are thin the opacified but do region ankle level. The left peroneal artery is not opacified. On the right side there is significant stenosis just distal to the proximal stent and proximal to the distal stent in the external iliac artery. There is occlusion of the common femoral artery and right SFA proximally. A thin SFA is reconstituted in the upper thigh and is exhibiting continuous flow into the thin ipsilateral right popliteal artery. There is no popliteal artery aneurysm. The tibioperoneal trunk is patent. There is thin 2 vessel runoff in the right calf being the anterior tibial artery and right peroneal artery. The posterior tibial artery is not opacified in the calf. Other: No evidence of soft tissue mass nor fluid collection in the lower extremities. Musculature appears symmetrical-unremarkable. ABDOMEN: There are no ischemic appearing bowel loops. No ascites. IMPRESSION: 1. Atherosclerotic abdominal aorta with fusiform infrarenal abdominal aortic aneurysm with maximum diameter 2.5 cm 2. Bilateral iliac artery stents with significant disease in the iliac arteries and common femoral arteries. Severe multilevel inflow disease. Also severe bilateral SFA disease. 3. No popliteal artery aneurysms. 4. Two vessel runoff noted in both calves. Called by myself to ER physician Radiologic Study #3: Imaging: CT Scan Radiologist's impression: EXAM: CT THORAX CTA CLINICAL HISTORY: concern dissection, chest and back pain. TECHNIQUE: Imaging Protocol: CT angiography of the chest was performed using pulmonary embolus protocol. Multi planar reconstructions were performed. CONTRAST MATERIAL: Intravenous: Omnipaque 350 Contrast volume: 100 cc COMPARISON: CT CT ABD AORTA CTA W RUNOFF from 09/04/2023 FINDINGS: CHEST: AORTA: The diameter of the ascending thoracic aorta is not enlarged. There is no evidence of aortic dissection. The left vertebral artery is noted to arise as an independent vessel off the aortic arch. No significant stenosis at the origin of the great vessels off the aortic arch. The descending thoracic aorta exhibits normal diameter and no dissection. There is no evidence of pericardial effusion. PULMONARY ARTERIES: There are no intraluminal filling defects in the main pulmonary arteries. LUNGS: There are no infiltrates nor evidence of pulmonary infarction.. No pleural effusions. No ominous pulmonary nodules. No focal findings in the trachea and mainstem bronchi. No secretions evident in the main airway. MEDIASTINUM: There is no hilar nor mediastinal adenopathy. Visualized thyroid unremarkable. CARDIAC: Heart size is normal. There is no pericardial effusion. Minimal coronary artery calcification. There is no shift of the interventricular septum.Caliber of the thoracic aorta is within normal limits. No dissection PARTIALLY VISUALIZED UPPERMOST ABDOMEN: No obvious findings OSSEOUS: No significant osseous lesions.No fractures.. IMPRESSION: 1. No evidence of thoracic aortic aneurysm. No evidence of aortic dissection. No pericardial effusion..No central pulmonary emboli. 2. No infiltrates nor pleural effusions. No pulmonary edema. No intrathoracic adenopathy. 3. Normal heart size. Called by myself to ER physician. Lab Data Lab results reviewed: Yes I reviewed the patient's lab results. Labs: Laboratory Tests Range/Units 09/04/23 13:50 WBC (4.4-10.8) 10^3/uL 8.22 RBC (3.93-5.22) 10^6/uL 4.10 Hgb (11.2-15.7) g/dL 14.5 Hct (36.0-46.0) % 42.5 MCV (80-95) fL 104 H MCH (27.0-33.0) pg 35.4 H MCHC (32.0-36.0) % 34.1 RDW (11.7-14.6) % 11.9 Plt Count (130-400) 10^3/uL 239 MPV (8.0-11.0) fL 9.5 Immature Gran % 0.2 Neutrophils % 66.1 Lymphocytes % 20.6 Monocytes % 11.2 Eosinophils % 1.3 Basophils % 0.6 Nucleated RBC % (0.0-0.3) % 0.0 Absolute Neutrophils (1.2-6.7) 10^3/uL 5.43 Absolute Lymphocytes (1.2-3.4) 10^3/uL 1.69 Absolute Monocytes (0.1-0.8) 10^3/uL 0.92 H Absolute Eosinophils (0.0-0.7) 10^3/uL 0.11 Absolute Basophils (0.0-0.2) 10^3/uL 0.05 Sodium (136-145) mmol/L 131 L Potassium (3.5-5.1) mmol/L 4.4 Chloride (98-107) mmol/L 94 L Carbon Dioxide (21.0-32.0) mmol/L 32.1 H Anion Gap (3-11) mmol/L 4.9 BUN (7-18) mg/dL 15 Creatinine (0.55-1.02) mg/dL 0.8 Est GFR (CKD-EPI 2020) (mL/min/1.73m2) 85.35 Glucose (74-106) mg/dL 105 Calcium (8.5-10.1) mg/dL 9.4 Magnesium (1.8-2.4) mg/dL 1.8 Total Bilirubin (0.2-1.0) mg/dL 0.4 AST (15-37) U/L 31 ALT (14-59) U/L 26 Alkaline Phosphatase (46-116) U/L 56 Troponin I (<or=60) ng/L < 50 Total Protein (6.4-8.2) g/dL 7.9 Albumin (3.4-5.0) g/dL 4.0 HPI General Date/Time Provider Initiated Documentation: 09/04/23 15:06 . HPI Narrative: 58 year-old female presents to ED today by POV/ambulating with a chief complaint of L leg pain, feels similar to a past R leg DVT in the setting of chronic PVD w/ past L UE DVT, R LE DVT's years ago- pain for the past 2 weeks, as well as chest pain for the past 4 days. Quality described as coldness, weird sensation in her foot, states she does get leg pain with ambulation after a while- the chest pain she describes as mild to moderate and radiates to her mid-back, questions diaphoresis vs hot flashes, endorses some lightheadedness, no radiation to cough/URI symptoms beyond baseline severe COPD on 2L O2 at baseline, denies GI symptoms, denies black/bloody stools, denies syncope, denies high fever, denies visual changes. Severity is described as mild for pain. Palliating factors include nothing specific attempted. Provoking factors include nothing specific. Events leading up to the incident/Associated Symptoms: Patient sees vascular at [facility]. Patient is anticoagulated on Xarelto, and takes Plavix. Related Data Home Medications Medication Instructions Recorded Confirmed calcium citrate 500 mg PO DAILY 05/02/15 09/04/23 cholecalciferol (vitamin D3) 50 2,000 unit PO DAILY 05/02/15 09/04/23 mcg (2,000 unit) tablet (Vitamin D3) gabapentin 300 mg capsule 300 mg PO QAM 05/02/15 09/04/23 loratadine 10 mg disintegrating 10 mg PO DAILY 05/02/15 09/04/23 tablet simvastatin 10 mg tablet 10 mg PO DAILY 05/02/15 09/04/23 albuterol sulfate 1.25 mg/3 mL 1.25 mg inhalation QID PRN 12/11/20 09/04/23 solution for nebulization albuterol sulfate 90 mcg/actuation 2 puff inhalation Q4H PRN PRN 12/11/20 09/04/23 aerosol inhaler clopidogrel 75 mg tablet 75 mg PO HS 12/11/20 09/04/23 ferrous sulfate 325 mg (65 mg 325 mg PO QDAY 12/11/20 09/04/23 iron) tablet gabapentin 400 mg capsule 400 mg PO QPM 12/11/20 09/04/23 hydroxyzine pamoate 25 mg capsule 25 mg PO TID PRN PRN 12/11/20 09/04/23 omeprazole 20 mg capsule,delayed 20 mg PO DAILY 12/11/20 09/04/23 release polyethylene glycol 3350 17 gram 255 g PO DAILY PRN 12/11/20 09/04/23 oral powder packet rivaroxaban 2.5 mg tablet (Xarelto) 2.5 mg PO BID 12/11/20 09/04/23 budesonide 160 mcg-glycopyr 9 See Rx Instructions .Route 01/02/22 09/04/23 mcg-formot 4.8 mcg/actuation HFA .COMPLEX #10.7 grams inhaler (Breztri Aerosphere) acetaminophen 500 mg tablet 1,000 mg PO Q6H PRN pain 07/03/22 09/04/23 varenicline 0.5 mg (11)-1 mg (42) See Rx Instructions PO PER PKG DIR 01/20/23 12/07/23 tablets in a dose pack (Chantix #53 dose pk Starting Month Box) Previous Rx's Medication Instructions Recorded budesonide 160 mcg-glycopyr 9 See Rx Instructions .Route 01/02/22 mcg-formot 4.8 mcg/actuation HFA .COMPLEX #10.7 grams inhaler (Breztri Aerosphere) varenicline 0.5 mg (11)-1 mg (42) See Rx Instructions PO PER PKG DIR 10/18/22 tablets in a dose pack (Chantix #53 dose pk Starting Month Box) Allergies Allergy/AdvReac Type Severity Reaction Status Date / Time tramadol HCl [From Ultram] AdvReac Intermediate Nausea Verified 09/04/23 15:03 General Stated Complaint: Vascular CAMPOS: 3 Review of Systems All systems reviewed & are unremarkable except as noted in HPI and below PFSH All Active Problems (Updated 09/04/23 @ 19:37 by KJ Mendoza) Peripheral arterial occlusive disease (Acute) Carpal tunnel syndrome on left (Acute 05/02/15) Chest pain (Acute) COPD (chronic obstructive pulmonary disease) (Chronic) Current smoker (Acute) Respiratory failure with hypoxia (Acute) Medical History Anemia Anxiety Asthma Bladder prolapse Carpal tunnel syndrome Chronic obstructive lung disease Degenerative joint disease Depression Dysuria Fibrocystic breast disease Fibromyalgia Gastroesophageal reflux disease Hyperlipidemia Knee joint pain Low back pain syndrome Neuropathic arthritis Osteopenia Peripheral vascular disease Plantar fasciitis PTSD (post-traumatic stress disorder) Shoulder pain Tobacco abuse URI (upper respiratory infection) Surgical History Excision, Distal Clavicle (12/09/12) LEFT Hx of thrombosis of lower extremity (2012) Thrombectomy with stent placement RLE and repeat thrombectomy 2020. Open Carpal Tunnel release (07/28/15) LEFT WRIST/ Social History Smoking/Tobacco Use Status: Current every day Tobacco Type: cigarettes Smoking risk assessment performed?: Yes Alcohol Intake: never Drug use: Occasionally Substance use type: marijuana Details: Marijuana every couple of nights. Do you feel safe at home: Yes Do you feel safe in your relationship?: Yes Exam Narrative Exam Narrative: GENERAL APPEARANCE: Well-nourished, non-toxic, awake and alert, atraumatic, no acute distress. SKIN: Warm, pink, dry, intact, without rashes/lesions/ulcerations. HEAD: Normocephalic, atraumatic, normal hair distribution for gender/age. EYES: Pupils PERRLA, EOMs intact without nystagmus, normal conjunctiva, no exudates on lids/lashes. ENT: Nares patent, no circumoral cyanosis, no facial swelling NECK: Supple, trachea midline, painless cervical ROM. LUNGS/CHEST: Lungs CTA bilaterally- mild expiratory wheezing diffusely, non- labored respirations, normal A/P diameter, symmetrical expansion, no chest wall deformity HEART (CV/PV): Regular rate and rhythm without murmur, no peripheral edema, no JVD. ABDOMEN: Soft, non-distended, no guarding, no tenderness. MSK: Normal ROM, no swelling/deformity to bilateral UEs or LEs, moving all extremities without weakness, no cyanosis, spine midline without tenderness, normal curvature. L LE: cold toes to palpation, dorsalis pedis pulse 1+, delayed capillary refill, no unilateral leg swelling, no venous stasis ulcers, Megan's negative, no medial thigh tenderness NEURO: Mental Status AAOx4 - alert to person, place, time, events No facial droop, no forehead involvement. Motor: No focal weakness - strength 5/5 in bilateral UEs and LEs, proximal and distal, symmetric. Sensory: sensation intact to light touch globally. Gait normal: patient ambulated without ataxia into ED room. PSYCH: euthymic, cooperative, pleasant, appropriate speech Course 09/04/23 13:50 Cardiac Troponin I Stat Comprehensive Metabolic Panel Stat Magnesium Stat Complete Blood Count w/Diff [HEMO] Stat 09/04/23 15:30 CT abd aorta CTA w runoff [CT] Stat 09/04/23 15:45 Normal Saline [Saline 1000ml Bag] 1,000 ml IV INFUSION 09/04/23 16:51 Normal Saline Flush [Saline Flush 10 ml Syringe] See Dose Instructions IVP PRN PRN 09/04/23 17:00 Normal Saline - Diluent [Saline 50 ml diluent vial] 50 ml IJ .FOR DI USE 09/04/23 17:30 CT thorax CTA [CT] Stat Iohexol [Omnipaque 350] 100 ml IJ DIRECTED Vital Signs Vital signs: Vital Signs Temperature 37.2 C 09/04/23 14:58 Pulse 97 H 09/04/23 14:58 Respiratory Rate 20 09/04/23 14:58 Blood Pressure 132/72 09/04/23 14:58 Pulse Oximetry 95 09/04/23 14:58 Temperature 37.2 C 09/04/23 14:58 Temperature Source Skin 09/04/23 14:58 Pulse 97 H 09/04/23 14:58 Respiratory Rate 20 09/04/23 14:58 Blood Pressure 132/72 09/04/23 14:58 Blood Pressure Position Sitting 09/04/23 14:58 Pulse Oximetry 95 09/04/23 14:58 Oxygen Delivery Method Nasal Cannula 09/04/23 14:58 Oxygen Flow Rate 2 09/04/23 14:58 Pain Level 0 09/04/23 14:58
--- NOTE | 2023-09-04 15:30 | DI.CT_ITS ---
Exam(s) CT ABD AORTA CTA W RUNOFF EXAM: CT ABD AORTA CTA W RUNOFF CLINICAL HISTORY: concern ischemia to L foot, also chest pain. TECHNIQUE: Imaging Protocol: Axial computed tomography images with coronal and sagittal reformatted images were created and reviewed CONTRAST MATERIAL: Intravenous: Omnipaque 350 Contrast volume:100 ml Oral: None COMPARISON: CT CT CHEST PE CTA from 07/03/2022 FINDINGS: CHEST: AORTOILIAC SEGMENTS: The abdominal aorta is atherosclerotic. There is a fusiform infrarenal abdomina l aortic aneurysm with maximum diameter 2.5 cm. No evidence of aortic dissection. There are endovascular stents evident in both common carotid arteries. There also an endovascular st ent in the right external iliac artery. There is some intra stent disease. However, on the left side there is critical stenosis in the left common iliac artery with only thin flow through this vessel evident. There is severe disease evident in the left common femoral artery and left SFA origin. The left SFA is a thin vessel with multileve l severe disease but appears to be continuous with a thin patent left popliteal artery. There is no evidence of popliteal artery aneurysm. The left tibioperoneal trunk is patent. There is 2 vessel ru noff in the left calf. The anterior and posterior tibial arteries are thin the opacified but do zoran on ankle level. The left peroneal artery is not opacified. On the right side there is significant stenosis just distal to the proximal stent and proximal to the distal stent in the external iliac artery. There is occlusion of the common femoral artery and righ t SFA proximally. A thin SFA is reconstituted in the upper thigh and is exhibiting continuous flow i nto the thin ipsilateral right popliteal artery. There is no popliteal artery aneurysm. The tibiope roneal trunk is patent. There is thin 2 vessel runoff in the right calf being the anterior tibial ar gris and right peroneal artery. The posterior tibial artery is not opacified in the calf. Other: No evidence of soft tissue mass nor fluid collection in the lower extremities. Musculature ap pears symmetrical-unremarkable. ABDOMEN: There are no ischemic appearing bowel loops. No ascites. IMPRESSION: 1. Atherosclerotic abdominal aorta with fusiform infrarenal abdominal aortic aneurysm with maximum di ameter 2.5 cm 2. Bilateral iliac artery stents with significant disease in the iliac arteries and common femoral ar teries. Severe multilevel inflow disease. Also severe bilateral SFA disease. 3. No popliteal artery aneurysms. 4. Two vessel runoff noted in both calves. Called by myself to ER physician RADIATION DOSE DELIVERED: Total DLP DATA REPOSITORY: All CT scans at this facility are submitted to the National Radiology Data Registry (NRDR) Dose Index Registry (DIR) with the [employer] (ACR). RADIATION OPTIMIZATION: All CT scans at this facility use at least one of these dose optimization te chniques: automated exposure control; mA and/or kV adjustment per patient size (includes targeted exa ms where dose is matched to clinical indication); or iterative reconstruction.
[2023-09-04] MEDS: Normal Saline 1,000 ML 150 ML IV (15:56)
[2023-09-04 16:08] LABS: Abs Immature Grans 0.02 10^3/uL (0.0-0.06); Absolute Basophil Count 0.05 10^3/uL (0.0-0.2); Absolute Eosinophil Count 0.11 10^3/uL (0.0-0.7); Absolute Lymphocyte Count 1.69 10^3/uL (1.2-3.4); Absolute Monocyte Count 0.92 10^3/uL (0.1-0.8); Absolute Neutrophil Count 5.43 10^3/uL (1.2-6.7); Basophils % 0.6; Eosinophils % 1.3; HCT 42.5 % (36.0-46.0); HGB 14.5 g/dL (11.2-15.7); Immature Grans % 0.2; Lymphocytes % 20.6; MCH 35.4 pg (27.0-33.0); MCHC 34.1 % (32.0-36.0); MCV 104 fL (80-95); MPV 9.5 fL (8.0-11.0); Monocytes % 11.2; Neutrophils % 66.1; Platelet Count 239 10^3/uL (130-400); RDW 11.9 % (11.7-14.6); RDW-SD 45.6 fL; WBC 8.22 10^3/uL (4.4-10.8)
[2023-09-04 16:35] LABS: ALT 26 U/L (14-59); AST 31 U/L (15-37); Alkaline Phosphatase 56 U/L (46-116); Anion Gap 4.9 mmol/L (3-11); BUN 15 mg/dL (7-18); Bilirubin, Total 0.4 mg/dL (0.2-1.0); CO2 32.1 mmol/L (21.0-32.0); CREATININE 0.8 mg/dL (0.55-1.02); Calcium 9.4 mg/dL (8.5-10.1); Chloride 94 mmol/L (98-107); Estimated GFR 85.35 (mL/min/1.73m2); Glucose 105 mg/dL (74-106); Magnesium 1.8 mg/dL (1.8-2.4); Potassium 4.4 mmol/L (3.5-5.1); Sodium 131 mmol/L (136-145); Total Protein 7.9 g/dL (6.4-8.2); Troponin I < 50 ng/L (<or=60)
[2023-09-04] MEDS: Normal Saline - Diluent 50 ML VIAL IJ ×2 (16:50→18:17)
--- NOTE | 2023-09-04 16:50 | NUR.NOTE ---
Nursing Note:was reported to this RN that patient was found by EMS on the floor of his camper naked wrapped in wet blankets. Son With patient at home intoxicated. On arrival to ED patient was naked, cold, wrapped in wet blanket with strong urine smell. Right buttock has evidence of shearing wound and right hip has 3inch non blanchable ring like wound. Mucous membranes dry, appears emancipated and pale. patient guarding right wrist and has right knee swelling with redness. Patient constantly yelling out and crying. Upon arrival this RN and 2 BOX TOE BUFFER gave patient warm bed bath,new brief, gave him warm gown and blankets bagged all belongs in pateint belonging bags with patient labels. MD aware of patient's condition.
[2023-09-04] MEDS: Normal Saline Flush 10 ML SYR IVP (16:51)
[2023-09-04] MEDS: Omnipaque 350 MG/ML 100 ML BTL IJ ×2 (17:23→18:18)
--- NOTE | 2023-09-04 17:30 | DI.CT_ITS ---
Exam(s) CT THORAX CTA EXAM: CT THORAX CTA CLINICAL HISTORY: concern dissection, chest and back pain. TECHNIQUE: Imaging Protocol: CT angiography of the chest was performed using pulmonary embolus jordyn col. Multi planar reconstructions were performed. CONTRAST MATERIAL: Intravenous: Omnipaque 350 Contrast volume: 100 cc COMPARISON: CT CT ABD AORTA CTA W RUNOFF from 09/04/2023 FINDINGS: CHEST: AORTA: The diameter of the ascending thoracic aorta is not enlarged. There is no evidence of aortic dissection. The left vertebral artery is noted to arise as an independent vessel off the aortic arch . No significant stenosis at the origin of the great vessels off the aortic arch. The descending th oracic aorta exhibits normal diameter and no dissection. There is no evidence of pericardial effusio n. PULMONARY ARTERIES: There are no intraluminal filling defects in the main pulmonary arteries. LUNGS: There are no infiltrates nor evidence of pulmonary infarction.. No pleural effusions. No omin ous pulmonary nodules. No focal findings in the trachea and mainstem bronchi. No secretions evident in the main airway. MEDIASTINUM: There is no hilar nor mediastinal adenopathy. Visualized thyroid unremarkable. CARDIAC: Heart size is normal. There is no pericardial effusion. Minimal coronary artery calcificat ion. There is no shift of the interventricular septum.Caliber of the thoracic aorta is within normal limits. No dissection PARTIALLY VISUALIZED UPPERMOST ABDOMEN: No obvious findings OSSEOUS: No significant osseous lesions.No fractures.. IMPRESSION: 1. No evidence of thoracic aortic aneurysm. No evidence of aortic dissection. No pericardial effusi on..No central pulmonary emboli. 2. No infiltrates nor pleural effusions. No pulmonary edema. No intrathoracic adenopathy. 3. Normal heart size. Called by myself to ER physician. RADIATION DOSE DELIVERED: Total DLP DATA REPOSITORY: All CT scans at this facility are submitted to the National Radiology Data Registry (NRDR) Dose Index Registry (DIR) with the [employer] (ACR). RADIATION OPTIMIZATION: All CT scans at this facility use at least one of these dose optimization te chniques: automated exposure control; mA and/or kV adjustment per patient size (includes targeted exa ms where dose is matched to clinical indication); or iterative reconstruction.
[2023-09-04] MEDS: Acetaminophen 500 MG TAB 1000 MG PO (21:50)
== END 2023-09-05 01:36 | disposition short-term general hospital (02) ==
PROVIDERS: Emergency Provider Physician Assistant; PCP Nurse Practitioner Family
DX: I70.222 Atherosclerosis of native arteries of extremities with rest pain, left leg (principal); I71.43 Infrarenal abdominal aortic aneurysm, without rupture; R94.31 Abnormal electrocardiogram [ECG] [EKG]; J44.9 Chronic obstructive pulmonary disease, unspecified; Z86.718 Personal history of other venous thrombosis and embolism; Z79.02 Long term (current) use of antithrombotics/antiplatelets
CPT/HCPCS: 36415; 71275; 75635; 80053; 93005; 99285; 83735; 84484; 85025; 93010; 93971; J3490

== ENCOUNTER 2023-10-08 15:31 | Outpatient (REF) | payer MEDICARE, MEDICAID, SELFPAY ==
[2023-10-08 21:27] LABS: ALT 43 U/L (14-59); AST 25 U/L (15-37); HDL Cholesterol 74 mg/dL (40-60); LDL CHOLESTEROL 78 mg/dL (<100)
[2023-10-08 21:51] LABS: Creatine Kinase 95 U/L (26-192)
== END 2023-10-08 15:32 | disposition home or self-care (01) ==
LOC: NCHCN 15:31
PROVIDERS: PCP Nurse Practitioner Family; Visit Provider Nurse Practitioner Family
DX: E78.5 Hyperlipidemia, unspecified (principal)
CPT/HCPCS: 82550; 83721; 83718; 84450; 84460

== ENCOUNTER 2023-12-05 10:00 | Day surgery (SDC) | payer MEDICARE, MEDICAID, SELFPAY ==
[2023-12-05 10:38] VITALS: BP 156/75; PULSE 93; RESP 18; TEMP 36.9; O2SAT 90
--- NOTE | 2023-12-05 11:13 | ANES.PREOP_ITS ---
General Info Date of Service Date Performed: 12/05/23 Height: 5 ft 1 in Weight: 42.4 kg Body Mass Index (BMI): 17.6 Surgical Procedure: Operation Date: 12/05/23 12:10 Proposed Procedure Side Surgeon p Cataract Extraction with IOL Implant Right Robert Arias MD Meds Allergies and Home Medications Allergies Allergy/AdvReac Type Severity Reaction Status Date / Time umeclidinium Allergy Severe chest Verified 12/05/23 10:43 [From Incruse Ellipta] tightness bupropion [From Wellbutrin] AdvReac Intermediate Nausea Verified 12/05/23 10:43 tramadol HCl [From Ultram] AdvReac Intermediate Nausea Verified 12/05/23 10:43 Home Medication Medication Instructions Recorded calcium citrate 500 mg PO DAILY 05/02/15 cholecalciferol (vitamin D3) 50 2,000 unit PO DAILY 05/02/15 mcg (2,000 unit) tablet (Vitamin D3) loratadine 10 mg disintegrating 10 mg PO DAILY 05/02/15 tablet simvastatin 10 mg tablet 10 mg PO DAILY 05/02/15 albuterol sulfate 1.25 mg/3 mL 1.25 mg inhalation QID PRN 12/11/20 solution for nebulization albuterol sulfate 90 mcg/actuation 2 puff inhalation Q4H PRN PRN 12/11/20 aerosol inhaler clopidogrel 75 mg tablet 75 mg PO HS 12/11/20 ferrous sulfate 325 mg (65 mg 325 mg PO QDAY 12/11/20 iron) tablet gabapentin 400 mg capsule 400 mg PO QPM 12/11/20 hydroxyzine pamoate 25 mg capsule 25 mg PO TID PRN PRN 12/11/20 omeprazole 20 mg capsule,delayed 20 mg PO DAILY 12/11/20 release polyethylene glycol 3350 17 gram 255 g PO DAILY PRN 12/11/20 oral powder packet rivaroxaban 2.5 mg tablet (Xarelto) 2.5 mg PO BID 12/11/20 budesonide 160 mcg-glycopyr 9 See Rx Instructions .Route 01/02/22 mcg-formot 4.8 mcg/actuation HFA .COMPLEX #10.7 grams inhaler (Breztri Aerosphere) acetaminophen 500 mg tablet 1,000 mg PO Q6H PRN pain 07/03/22 varenicline 0.5 mg (11)-1 mg (42) See Rx Instructions PO PER PKG DIR 10/18/22 tablets in a dose pack (Foodscoverytix #53 dose pk Starting Month Box) bupropion HCl 150 mg tablet,12 hr 150 mg PO Q12H 12/03/23 sustained-release diclofenac sodium 3 % topical gel 0.1 g topical BID 12/03/23 magnesium oxide 250 mg PO DAILY 12/03/23 nicotine 14 mg/24 hr daily 1 patch transdermal DAILY 12/03/23 transdermal patch pantoprazole 20 mg tablet,delayed 20 mg PO DAILY 12/03/23 release prednisone 20 mg tablet 20 mg PO DAILY 12/03/23 rivaroxaban 10 mg tablet (Xarelto) 20 mg PO DAILY 12/03/23 Current Visit Medications: Current Medications Generic Name Dose Route Start Last Admin Trade Name Freq PRN Reason Stop Dose Admin Acetaminophen 1,000 mg 12/05/23 06:00 Acetaminophen 500 Mg Tab PO 01/04/24 05:59 Q4H PRN PRN Balanced Salt Solution 500 ml 12/05/23 06:00 Balanced Salt Soln.-Plus 500 Ml Bag OP 01/04/24 05:59 DIRECTED ALMITA Miscellaneous Medication 0 ml 12/05/23 06:00 Prednisolone 1%, Moxifloxacin 0.5%, Bromfenac 0.09% 5ml Btl OD 01/04/24 05:59 DIRECTED ALMITA Miscellaneous Medication 0 ml 12/05/23 06:00 12/05/23 11:06 Tropicam./Phenyleph. (1/2.5%) 10 Ml Btl OD 01/04/24 05:59 1 drp DIRECTED ALMITA Administration Tetracaine HCl 0 ml 12/05/23 06:00 Tetracaine 0.5% 4 Ml Btl OD 01/04/24 05:59 DIRECTED ALMITA PFSH Active Problems Active Problems: Problem Status Onset Code Posterior subcapsular age-related cataract, right eye H25.041 Nuclear age-related cataract, right eye H25.11 Carpal tunnel syndrome on left 05/02/15 G56.02 Chest pain R07.9 COPD (chronic obstructive pulmonary disease) J44.9 Current smoker F17.200 Respiratory failure with hypoxia J96.91 Medical History Medical History Polycythemia Bladder prolapse Anxiety Depression Fibrocystic breast disease Osteopenia Peripheral vascular disease mild claudication Shoulder pain Carpal tunnel syndrome Low back pain syndrome Fibromyalgia URI (upper respiratory infection) Anemia Plantar fasciitis Neuropathic arthritis PTSD (post-traumatic stress disorder) Dysuria Knee joint pain Degenerative joint disease Hyperlipidemia Tobacco abuse Asthma Gastroesophageal reflux disease Chronic obstructive lung disease Surgical History Surgical History History of endarterectomy left iliofemoral endarterectomy w/patch angioplasty,left SFA and profunda endarterectomy, left external iliac stent placement 09/18/23. Hx of thrombosis of lower extremity (2012) Thrombectomy with stent placement RLE and repeat thrombectomy 2020. Open Carpal Tunnel release (07/28/15) LEFT WRIST/ Excision, Distal Clavicle (12/09/12) LEFT Tobacco Smoking/Tobacco Use Status: Current every day Tobacco Type: cigarettes Smoking cigarettes per day: 4 Alcohol Alcohol Intake: never Substance Use Substance use: Occasionally Substance use type: marijuana Details: Marijuana every couple of nights. Vital Signs and Lab Results Vital Signs Most Recent Vital Signs in EMR: Most Recent Vital Signs Temp Pulse Resp BP Pulse Ox 36.9 C 93 H 18 156/75 H 90 L 12/05/23 10:38 12/05/23 10:38 12/05/23 10:38 12/05/23 10:38 12/05/23 10:38 Lab Results Blood Type / Crossmatch: No Data to Display Complete Blood Count: No Data to Display Complete Metabolic Panel: No Data to Display Liver Function Panel: No Data to Display Coagulation Panel: No Data to Display Cardiac Panel: No Data to Display Arterial Blood Gas: No Data to Display Venous Blood Gas: No Data to Display Pancreas Panel: No Data to Display Thyroid Panel: No Data to Display Infectious Disease: No Data to Display Blood Cultures: No Data to Display Toxicology Panel: No Data to Display Imaging and Studies Imaging and Studies Study information below may be from another EMR and interpreted by another provider. Please see original notes in EMR for more complete details. EKG Summary: Conclusion Sinus rhythm...normal P axis, V-rate 60- 99 non diagnostic EKG I have reviewed and interpreted ECG and agree with software generated inte [facility]. Stress Test Summary: MPI Conclusion The patient's ejection fraction was greater than 70% with stress. There were no wall motion abnormalities. There is no evidence of ischemia on the imaging portion exam. This represents a normal SPECT stress test. Pulmonary Function Summary: Pulmonary Function Test Result Interpretation Spirometry: Very severe obstructive airways disease with significant bronchodilator response Lung Volumes: No evidence of restriction, moderate to severe hyper inflation and air trapping Diffusion Capacity: Very severely reduced, which is severely reduced when corrected to alveolar volume Airway Pressure: Elevated Impression Very severe obstructive airways disease with significant bronchodilator res ponse, this is associated with very severe diffusion defect and moderate to severe hyperinflation and air trapping Clinical Correlation therefore is recommended. Anesthesia Assessment and Plan Anesthesia History Personal History: No History of Anesthesia Complications Family History: No Family History of Anesthesia Complications Exercise Tolerance Exercise Tolerance: Metabolic Equivalents<4 Pertinent Negatives Pertinent Negatives: No Symptoms of GERD Cardiac & Pulmonary Exam Cardiac Exam: Normal S1/S2 Heart Sounds Pulmonary Exam: Clear Bilateral Breath Sounds Implantable Cardiac Device Does patient have a Pacemaker or an ICD?: No Airway Exam Known Difficult Airway: No Mallampati Class: 1 Mouth Opening: Normal (> 3cm) Thyromental Distance: Greater than 3 cm Neck Range of Motion: Full ROM Neck Circumference: Normal Teeth Condition: Normal Dentition ASA Classification ASA Score: ASA 3 Emergency Case?: No NPO Status NPO Status: NPO Clears >2 hours, Solids >8 hours Anesthesia Plan Resuscitation Status: Full Code Anesthesia Technique: MAC Anesthesia Airway Planned: Natural Airway Monitors Used: Standard Monitors
[2023-12-05 11:19] VITALS: BMI 17.6
[2023-12-05] MEDS: Lidocaine 1% Pres-Free 5 ML VIAL (12:12)
[2023-12-05] MEDS: Trypan Blue 0.06% 0.5 ML SYR (12:14)
[2023-12-05] MEDS: Balanced Salt Soln.-PLUS 500 ML BAG OP (12:15)
[2023-12-05] MEDS: Povidone-Iodine Ophth 30 ML BTL (12:18)
[2023-12-05] MEDS: Duovisc Viscoelastic System EACH 1 EACH (12:19)
--- NOTE | 2023-12-05 12:34 | PDOC.DSDIS_ITS ---
Date of service: 12/05/23 Time of Service: 12:35 Discharge Plan Disposition Patient Disposition: Home Discharge Details Attending Provider: Robert Airas Primary Care Provider: Arline Miguel Home Meds and New Rx's Prescriptions: No Action varenicline [Chantix Starting Month Box] 0.5 mg (11)- 1 mg (42) tablets,dose pack See Rx Instructions PO PER PKG DIR Qty: 53 0RF Rx Instructions: PO PER PKG DIR loratadine 10 MG tablet,disintegrating 10 mg PO DAILY simvastatin 10 MG tablet 10 mg PO DAILY calcium citrate 250 MG tablet 500 mg PO DAILY cholecalciferol (vitamin D3) [Vitamin D3] 2,000 UNIT tablet 2,000 unit PO DAILY Breztri Aerosphere 160-9-4.8 mcg/actuation HFA aerosol inhaler See Rx Instructions .ROUTE .COMPLEX Qty: 10.7 12RF Dose Instruction: INHALE 2 PUFFS BY MOUTH TWICE DAILY FOR COPD Patient Comments: per H&P not started yet, awaiting pharmacy. Rx Instructions: INHALE 2 PUFFS BY MOUTH TWICE DAILY FOR COPD gabapentin 400 mg capsule 400 mg PO QPM Patient Comments: TAKE 1 CAPSULE BY MOUTH EVERY EVENING. polyethylene glycol 3350 17 gram powder in packet 255 g PO DAILY PRN Rx Instructions: Mix 255 gm in 64 oz of gatorade or juice. Drink as directed albuterol sulfate 1.25 mg/3 mL Solution For Nebulization 1.25 mg INHALATION QID PRN clopidogrel 75 mg tablet 75 mg PO HS Patient Comments: TAKE 1 TABLET BY MOUTH DAILY ferrous sulfate 325 mg (65 mg iron) tablet 325 mg PO QDAY Patient Comments: TAKE 1 TABLET BY MOUTH TWICE DAILY. omeprazole 20 mg capsule,delayed release(DR/EC) 20 mg PO DAILY Patient Comments: TAKE 1 CAPSULE BY MOUTH EVERY DAY albuterol sulfate 90 mcg/actuation HFA aerosol inhaler 2 puff INHALATION Q4H PRN PRN Patient Comments: INHALE 2 PUFFS BY MOUTH EVERY 4 HOURS IF NEEDED hydroxyzine pamoate 25 mg capsule 25 mg PO TID PRN PRN Patient Comments: TK 1 C PO TID PRF ITCHING Xarelto 2.5 mg tablet 2.5 mg PO BID Patient Comments: TAKE 1 TABLET BY MOUTH TWICE DAILY acetaminophen 500 mg tablet 1,000 mg PO Q6H PRN (Reason: pain) Xarelto 10 mg tablet 20 mg PO DAILY Patient Comments: Per [facility] Vascular prednisone 20 mg tablet 20 mg PO DAILY Patient Comments: TAKE 2 TABLETS BY MOUTH EVERY DAY WITH FOOD pantoprazole 20 mg tablet,delayed release (DR/EC) 20 mg PO DAILY Patient Comments: TAKE 1 TABLET BY MOUTH ONCE DAILY FOR REFLUX nicotine 14 mg/24 hr patch 24 hour 1 patch transdermal DAILY magnesium oxide 250 mg magnesium tablet 250 mg PO DAILY bupropion HCl 150 mg tablet sustained-release 12 hr 150 mg PO Q12H Patient Comments: TAKE 1 TABLET BY MOUTH TWICE DAILY FOR SMOKING CESSATION diclofenac sodium 3 % gel 0.1 g topical BID Rx Instructions: per cm2 lesion size; completely cover lesion Discharge Instructions Stand Alone Forms: DSU Post-Op CataractBatsheva (DSU) Discharge Orders Discharge Orders: Discharge Order (Routine); Ordered 12/05/23 Ordered By: Robert Arias DS: Diagnosis Discharge Diagnosis (1) Posterior subcapsular age-related cataract of left eye: Status: Resolved (2) Nuclear age-related cataract, left eye: Status: Resolved
[2023-12-05 12:35] VITALS: BP 133/72; PULSE 85; RESP 16; TEMP 36.4; O2SAT 95
--- NOTE | 2023-12-05 12:35 | ROE_ITS ---
Date of service: 12/05/23 Time of Service: 12:36 Operative Note Operative Note DATE OF PROCEDURE: 12/05/23 PRE-OP DIAGNOSIS: Nuclear/posterior subcapsular cataract, left eye POST-OP DIAGNOSIS: same PROCEDURE: Cataract extraction using phacoemulsification with intraocular lens implant, left eye SURGEON: Robert Arias ANESTHESIA TYPE: Local By Surgeon and MAC Refer to Anesthesia Record PATHOLOGY: none sent COMPLICATIONS: None Patient was transported to: same day Patient's condition: stable Implants: Andrew Clareon [id number] Indications: Progressive decreased vision due to cataract, left eye Procedure Description: CATARACT SURGERY OPERATIVE REPORT PREOPERATIVE DIAGNOSIS: Nuclear/posterior subcapsular cataract, left eye POSTOPERATIVE DIAGNOSIS: Same OPERATION: Cataract extraction using phacoemulsification with posterior chamber intraocular lens implant, left eye. IOL: IOL Personal Financial Advisor/Model: Andrew Clareon [id number] IOL Power: + 26.5 diopters IOL Serial Number: [id number] Optic Diameter: 6.0mm Haptic/Overall Diameter: 13.0mm PHACO INFO: AndrewDr. Scribblesurion Vision System with OZil and Active Fluidics Cumulative Dispersed Energy (CDE): 30.85 seconds SURGEON: Robert Arias MD, [place] ANESTHESIA: Monitored Anesthesia Care (MAC), with local sub-tenon's anesthetic infiltration COMPLICATIONS: None SPECIMENS: None INDICATIONS FOR PROCEDURE: The patient is a 58-year-old lady with history of diminished visual acuity in both eyes secondary to the development of dense bilateral nuclear/posterior subcapsular cataract. She is significantly symptomatic that she desires cataract surgery and attempt to improve and maximize her vision. The option of cataract surgery was offered to the patient and she wished to proceed. See office notes for detailed information. PROCEDURE: The correct surgical eye was identified and marked as the left eye and the pupil was dilated in the preoperative area using mydriatics and cycloplegics. The dilated pupil size was 7.0 mm. . The patient elected to proceed without oral sedation. The patient was brought to the operating room where cardiopulmonary monitoring was instituted and surgical time-out was performed, confirming the correct operative eye and IOL power. Topical anesthesia was administered and ophthalmic povidone-iodine 5% was instilled into the conjunctival fornices. The barbie-ocular area was prepped with Betadine 10% solution and draped in the usual sterile fashion for intraocular surgery, including an aperture drape. A Tegaderm transparent film dressing was cut in half and used to cover the lashes and lid margins. Care was taken to sequester the lashes and lid margins under the Tegaderm dressing. A lid speculum was placed between the lids of the operative eye and the Andrew LuxOR Revalia operating microscope was maneuvered into position. Adrienne scissors were then used to make a conjunctival buttonhole approximately 6mm posterior to the limbus in the inferonasal quadrant. Blunt dissection was carried out to expose bare sclera, and a blunt-tipped sub-tenon?s anesthesia cannula was introduced and passed posteriorly along the globe where non- preserved plain lidocaine was injected into posterior sub-Tenon?s space. A sideport knife was used to make a paracentesis port. VisionBlue was injected into the anterior chamber and allowed to sit for 20 seconds. Intraocular phenylephrine/lidocaine was injected into the anterior chamber. The anterior chamber was then filled with viscoelastic. A keratome knife was used construct a two-plane clear corneal tunnel extending 2.0mm into clear cornea. A flap was raised on the anterior capsule and capsulorhexis forceps were used to complete a continuous curvilinear capsulorhexis of 5.0 mm. The eye had to be fixated with a second instrument due to constant eye movement. Balanced salt solution was then used to perform cortical cleaving hydrodissection and nuclear hydrodelineation until the lens could be freely rotated within the capsular bag. The lens nucleus was then disassembled and removed within the capsular bag and iris plane using phacoemulsification. Residual cortical material was removed using the irrigation/aspiration handpiece. The posterior capsule was carefully polished to remove as much residual lens epithelial cells as safely possible. The capsular bag was then inflated and the anterior chamber deepened with viscoelastic. The lens implant described above was inserted into the capsular bag using the Andrew Autonome Injector. A Kuglen hook was used to dial the IOL into position. Residual viscoelastic was then removed first from posterior to the IOL, then from the anterior chamber using the I/A handpiece. The lens implant was noted to center nicely within the capsular bag. The incisions were stromally hydrated, and the anterior chamber was reformed using BSS. Then 0.5cc of moxifloxacin 1.0mg/ml were injected into the capsular bag and anterior chamber. The incisions were checked with a Weck spear and found to be secure. Several drops of ophthalmic povidone-iodine 5% were then applied to the eye followed by two drops of combination steroid/NSAID/antibiotic solution. The drapes were removed and a clear plastic protective eye shield was placed over the eye. The patient was then returned to Same Day Surgery in stable condition.
--- NOTE | 2023-12-05 12:49 | W.ANESPOSTOP ---
Postoperative Evaluation Date, Time and Location Date Performed: 12/05/23 Time Performed: 12:42 Patient Location: Day Surgery Unit Vital Signs Most Recent Imported Vital Signs: Most Recent Vital Signs Temp Pulse Resp BP Pulse Ox 36.4 C L 85 16 133/72 95 12/05/23 12:35 12/05/23 12:35 12/05/23 12:35 12/05/23 12:35 12/05/23 12:35 Pain Score Most Recent Pain Score: Most Recent Pain Score Pain Level 0 12/05/23 12:35 Assessment Mental Status: Awake (Alert & Oriented to Patient Baseline) Airway and Respiratory Function: Patent airway with normal (patient baseline) respiratory exam Cardiovascular Function: Hemodynamically Stable Hydration Status: Adequately Hydrated Nausea & Vomiting: No Nausea or Vomiting Pain: Pt. Denies Any Pain Peripheral Nerve Block: Patient did not receive a nerve block
== END 2023-12-05 13:04 | disposition home or self-care (01) ==
PROVIDERS: PCP Nurse Practitioner Family; Visit Provider Ophthalmology
PROC: (CPT 66984; principal; 2023-12-05 12:00)
DX: H25.042 Posterior subcapsular polar age-related cataract, left eye (principal); H25.12 Age-related nuclear cataract, left eye; K21.9 Gastro-esophageal reflux disease without esophagitis
CPT/HCPCS: 66984; 00123; V2632; J2003

== ENCOUNTER 2023-12-19 08:37 | Day surgery (SDC) | payer MEDICARE, MEDICAID, SELFPAY ==
[2023-12-19 08:45] VITALS: BP 152/81; PULSE 87; RESP 16; TEMP 36.1; O2SAT 92
--- NOTE | 2023-12-19 10:19 | W.ANESPRE ---
General Info Date of Service Date Performed: 12/19/23 Height: 5 ft 1 in Weight: 42.5 kg Body Mass Index (BMI): 17.6 Surgical Procedure: Operation Date: 12/19/23 10:40 Proposed Procedure Side Surgeon p Cataract Extraction with IOL Implant Left Robert Arias MD Meds Allergies and Home Medications Allergies Allergy/AdvReac Type Severity Reaction Status Date / Time umeclidinium Allergy Severe chest Verified 12/19/23 09:02 [From Incruse Ellipta] tightness bupropion [From Wellbutrin] AdvReac Intermediate Nausea Verified 12/19/23 09:02 tramadol HCl [From Ultram] AdvReac Intermediate Nausea Verified 12/19/23 09:02 Home Medication Medication Instructions Recorded calcium citrate 500 mg PO DAILY 05/02/15 cholecalciferol (vitamin D3) 50 2,000 unit PO DAILY 05/02/15 mcg (2,000 unit) tablet (Vitamin D3) loratadine 10 mg disintegrating 10 mg PO DAILY 05/02/15 tablet simvastatin 10 mg tablet 10 mg PO DAILY 05/02/15 albuterol sulfate 1.25 mg/3 mL 1.25 mg inhalation QID PRN 12/11/20 solution for nebulization albuterol sulfate 90 mcg/actuation 2 puff inhalation Q4H PRN PRN 12/11/20 aerosol inhaler clopidogrel 75 mg tablet 75 mg PO HS 12/11/20 ferrous sulfate 325 mg (65 mg 325 mg PO QDAY 12/11/20 iron) tablet gabapentin 400 mg capsule 400 mg PO QPM 12/11/20 hydroxyzine pamoate 25 mg capsule 25 mg PO TID PRN PRN 12/11/20 omeprazole 20 mg capsule,delayed 20 mg PO DAILY 12/11/20 release polyethylene glycol 3350 17 gram 255 g PO DAILY PRN 12/11/20 oral powder packet rivaroxaban 2.5 mg tablet (Xarelto) 2.5 mg PO BID 12/11/20 budesonide 160 mcg-glycopyr 9 See Rx Instructions .Route 01/02/22 mcg-formot 4.8 mcg/actuation HFA .COMPLEX #10.7 grams inhaler (Breztri Aerosphere) acetaminophen 500 mg tablet 1,000 mg PO Q6H PRN pain 07/03/22 varenicline 0.5 mg (11)-1 mg (42) See Rx Instructions PO PER PKG DIR 10/18/22 tablets in a dose pack (Forticom #53 dose pk Starting Month Box) diclofenac sodium 3 % topical gel 0.1 g topical BID 12/03/23 magnesium oxide 250 mg PO DAILY 12/03/23 nicotine 14 mg/24 hr daily 1 patch transdermal DAILY 12/03/23 transdermal patch pantoprazole 20 mg tablet,delayed 20 mg PO DAILY 12/03/23 release rivaroxaban 10 mg tablet (Xarelto) 20 mg PO DAILY 12/03/23 Current Visit Medications: Current Medications Generic Name Dose Route Start Last Admin Trade Name Freq PRN Reason Stop Dose Admin Acetaminophen 1,000 mg 12/19/23 06:00 Acetaminophen 500 Mg Tab PO 01/18/24 05:59 Q4H PRN PRN Balanced Salt Solution 500 ml 12/19/23 06:00 Balanced Salt Soln.-Plus 500 Ml Bag OP 01/18/24 05:59 DIRECTED ALMITA Miscellaneous Medication 0 ml 12/19/23 06:00 Prednisolone 1%, Moxifloxacin 0.5%, Bromfenac 0.09% 5ml Btl OS 01/18/24 05:59 DIRECTED ALMITA Miscellaneous Medication 0 ml 12/19/23 06:00 12/19/23 09:18 Tropicam./Phenyleph. (1/2.5%) 10 Ml Btl OS 01/18/24 05:59 1 drp DIRECTED ALMITA Administration Tetracaine HCl 0 ml 12/19/23 06:00 Tetracaine 0.5% 4 Ml Btl OS 01/18/24 05:59 DIRECTED ALMITA PFSH Active Problems Active Problems: Problem Status Onset Code Nuclear age-related cataract, left eye H25.12 Posterior subcapsular age-related cataract of left eye H25.042 Posterior subcapsular age-related cataract, right eye H25.041 Nuclear age-related cataract, right eye H25.11 Carpal tunnel syndrome on left 05/02/15 G56.02 Chest pain R07.9 COPD (chronic obstructive pulmonary disease) J44.9 Current smoker F17.200 Respiratory failure with hypoxia J96.91 Medical History Medical History Polycythemia Bladder prolapse Anxiety Depression Fibrocystic breast disease Osteopenia Peripheral vascular disease mild claudication Shoulder pain Carpal tunnel syndrome Low back pain syndrome Fibromyalgia URI (upper respiratory infection) Anemia Plantar fasciitis Neuropathic arthritis PTSD (post-traumatic stress disorder) Dysuria Knee joint pain Degenerative joint disease Hyperlipidemia Tobacco abuse Asthma Gastroesophageal reflux disease Chronic obstructive lung disease Surgical History Surgical History History of endarterectomy left iliofemoral endarterectomy w/patch angioplasty,left SFA and profunda endarterectomy, left external iliac stent placement 09/18/23. Hx of thrombosis of lower extremity (2012) Thrombectomy with stent placement RLE and repeat thrombectomy 2020. Open Carpal Tunnel release (07/28/15) LEFT WRIST/ Excision, Distal Clavicle (12/09/12) LEFT Tobacco Smoking/Tobacco Use Status: Current every day Tobacco Type: cigarettes Smoking cigarettes per day: 4 Alcohol Alcohol Intake: never Substance Use Substance use: Occasionally Substance use type: marijuana Details: Marijuana every couple of nights. Vital Signs and Lab Results Vital Signs Most Recent Vital Signs in EMR: Most Recent Vital Signs Temp Pulse Resp BP Pulse Ox 36.1 C L 87 16 152/81 H 92 12/19/23 08:45 12/19/23 08:45 12/19/23 08:45 12/19/23 08:45 12/19/23 08:45 Lab Results Blood Type / Crossmatch: No Data to Display Complete Blood Count: No Data to Display Complete Metabolic Panel: No Data to Display Liver Function Panel: No Data to Display Coagulation Panel: No Data to Display Cardiac Panel: No Data to Display Arterial Blood Gas: No Data to Display Venous Blood Gas: No Data to Display Pancreas Panel: No Data to Display Thyroid Panel: No Data to Display Infectious Disease: No Data to Display Blood Cultures: No Data to Display Toxicology Panel: No Data to Display Imaging and Studies Imaging and Studies Study information below may be from another EMR and interpreted by another provider. Please see original notes in EMR for more complete details. EKG Summary: Conclusion Sinus rhythm...normal P axis, V-rate 60- 99 non diagnostic EKG I have reviewed and interpreted ECG and agree with software generated interpretation. Stress Test Summary: MPI Conclusion The patient's ejection fraction was greater than 70% with stress. There were no wall motion abnormalities. There is no evidence of ischemia on the imaging portion exam. This represents a normal SPECT stress test. Pulmonary Function Summary: Pulmonary Function Test Result Interpretation Spirometry: Very severe obstructive airways disease with significant bronchodilator response Lung Volumes: No evidence of restriction, moderate to severe hyper inflation and air trapping Diffusion Capacity: Very severely reduced, which is severely reduced when corrected to alveolar volume Airway Pressure: Elevated Impression Very severe obstructive airways disease with significant bronchodilator response, this is associated with very severe diffusion defect and moderate to severe hyperinflation and air trapping Clinical Correlation therefore is recommended. Anesthesia Assessment and Plan Anesthesia History Personal History: No History of Anesthesia Complications Family History: No Family History of Anesthesia Complications Exercise Tolerance Exercise Tolerance: Metabolic Equivalents<4 Pertinent Negatives Pertinent Negatives: No Symptoms of GERD Cardiac & Pulmonary Exam Cardiac Exam: Normal S1/S2 Heart Sounds Pulmonary Exam: Rhonchi Present (smoker) Implantable Cardiac Device Does patient have a Pacemaker or an ICD?: No Airway Exam Known Difficult Airway: No Mallampati Class: 1 Mouth Opening: Normal (> 3cm) Thyromental Distance: Greater than 3 cm Neck Range of Motion: Full ROM Neck Circumference: Normal Teeth Condition: Normal Dentition ASA Classification ASA Score: ASA 3 Emergency Case?: No NPO Status NPO Status: NPO Clears >2 hours, Solids >8 hours Anesthesia Plan Resuscitation Status: Full Code Anesthesia Technique: MAC Anesthesia Airway Planned: Natural Airway Monitors Used: Standard Monitors
[2023-12-19 10:20] VITALS: BMI 17.6
[2023-12-19] MEDS: Balanced Salt Soln.-PLUS 500 ML BAG OP (10:33)
[2023-12-19] MEDS: Tetracaine 0.5% 4 ML BTL OS (10:34)
[2023-12-19] MEDS: Lidocaine 1% Pres-Free 5 ML VIAL (10:35)
[2023-12-19] MEDS: Duovisc Viscoelastic System EACH 1 EACH (10:35)
[2023-12-19] MEDS: Povidone-Iodine Ophth 30 ML BTL (10:36)
[2023-12-19] MEDS: Trypan Blue 0.06% 0.5 ML SYR (10:37)
[2023-12-19 11:08] VITALS: BP 147/80; PULSE 80; RESP 16; TEMP 36.3; O2SAT 96
--- NOTE | 2023-12-19 11:08 | ROE_ITS ---
Date of service: 12/19/23 Time of Service: 11:08 Operative Note Operative Note DATE OF PROCEDURE: 12/19/23 PRE-OP DIAGNOSIS: Dense nuclear/posterior subcapsular cataract, right eye POST-OP DIAGNOSIS: same PROCEDURE: Cataract extraction using phacoemulsification with intraocular lens implant, right eye SURGEON: Robert Arias ANESTHESIA TYPE: Local By Surgeon and MAC Refer to Anesthesia Record ESTIMATED BLOOD LOSS: 0 PATHOLOGY: none sent COMPLICATIONS: None Patient was transported to: same day Patient's condition: stable Implants: Andrew Clareon [id number] Indications: Progressive decreased vision due to cataract, right eye Procedure Description: CATARACT SURGERY OPERATIVE REPORT PREOPERATIVE DIAGNOSIS: Dense nuclear/posterior subcapsular cataract, right eye POSTOPERATIVE DIAGNOSIS: Same OPERATION: Cataract extraction using phacoemulsification with posterior chamber intraocular lens implant, right eye. IOL: IOL Cloth Cutting Inspector/Model: Andrew Clareon [id number] IOL Power: + 25.0 diopters IOL Serial Number: [id number] Optic Diameter: 6.0mm Haptic/Overall Diameter: 13.0mm PHACO INFO: Andrew Igneous Systemsurion Vision System with OZil and Active Fluidics Cumulative Dispersed Energy (CDE): 25.51 seconds SURGEON: Robert Arias MD, [place] ANESTHESIA: Monitored Anesthesia Care (MAC), with local sub-tenon's anesthetic infiltration COMPLICATIONS: None SPECIMENS: None INDICATIONS FOR PROCEDURE: The patient is a 58-year-old lady with history of diminished visual acuity in both eyes secondary to the development of dense bilateral nuclear/posterior subcapsular cataract. She has already undergone cataract surgery in the left eye and is doing well postoperatively. She now presents for cataract surgery in the right eye. See office notes for detailed information. PROCEDURE: The correct surgical eye was identified and marked as the right eye and the pupil was dilated in the preoperative area using mydriatics and cycloplegics. The dilated pupil size was 7.0 mm. The patient elected to proceed without oral sedation. The patient was brought to the operating room where cardiopulmonary monitoring was instituted and surgical time-out was performed, confirming the correct operative eye and IOL power. Topical anesthesia was administered and ophthalmic povidone-iodine 5% was instilled into the conjunctival fornices. The barbie-ocular area was prepped with Betadine 10% solution and draped in the usual sterile fashion for intraocular surgery, including an aperture drape. A Tegaderm transparent film dressing was cut in half and used to cover the lashes and lid margins. Care was taken to sequester the lashes and lid margins under the Tegaderm dressing. A lid speculum was placed between the lids of the operative eye and the Andrew LuxOR Revalia operating microscope was maneuvered into position. Adrienne scissors were then used to make a conjunctival buttonhole approximately 6mm posterior to the limbus in the inferonasal quadrant. Blunt dissection was carried out to expose bare sclera, and a blunt-tipped sub-tenon?s anesthesia cannula was introduced and passed posteriorly along the globe where non- preserved plain lidocaine was injected into posterior sub-Tenon?s space. A sideport knife was used to make a paracentesis port. VisionBlue was injected into the anterior chamber and allowed to sit for 30 seconds. The patient had constant large amplitude while the eye movements, and could not fixate on the fixation late. The eye had to be fixated with a pair of forceps to perform any maneuvers. Intraocular phenylephrine/lidocaine was injected into the anterior chamber. The anterior chamber was then filled with viscoelastic. A keratome knife was used to construct a two--plane clear corneal tunnel extending 2.0mm into clear cornea. A flap was raised on the anterior capsule and capsulorhexis forceps were used to complete a continuous curvilinear capsulorhexis of 4.8 mm. Capsulorhexis was extremely challenging due to constant eye movement. Balanced salt solution was then used to perform cortical cleaving hydrodissection and nuclear hydrodelineation until the lens could be freely rotated within the capsular bag. The lens nucleus was then disassembled and removed within the capsular bag and iris plane using phacoemulsification. A second paracentesis port was made 90 degrees away from the sacral incision, at the 6 o'clock position, to help fixate the eye. Additional dispersive viscoelastic was injected intermittently to protect the corneal endothelium due to the constant eye movements. Residual cortical material was removed using the I/A handpiece. The posterior capsule was carefully polished to remove as much residual lens epithelial cells as safely possible. The capsular bag was then inflated and the anterior chamber deepened with cohesive viscoelastic. The lens implant described above was inserted into the capsular bag using the Andrew Autonome Injector. A Kuglen hook was used to dial the IOL into position. Residual viscoelastic was then removed first from posterior to the IOL, then from the anterior chamber using the I/A handpiece. The lens implant was noted to center nicely within the capsular bag. The incisions were stromally hydrated, and the anterior chamber was reformed using BSS. Then 0.5cc of moxifloxacin 1.0mg/ml were injected into the capsular bag and anterior chamber. The incisions were checked with a Weck spear and found to be secure. Several drops of ophthalmic povidone-iodine 5% were then applied to the eye followed by two drops of combination steroid/NSAID/antibiotic solution. The drapes were removed and a clear plastic protective eye shield was placed over the eye. The patient was then returned to Same Day Surgery in stable condition.
--- NOTE | 2023-12-19 11:08 | W.PM.DSUDISC ---
Date of service: 12/19/23 Time of Service: 11:08 Discharge Plan Disposition Patient Disposition: Home Discharge Details Attending Provider: Robert Arias Primary Care Provider: Arline Miguel Home Meds and New Rx's Prescriptions: No Action varenicline [Chantix Starting Month Box] 0.5 mg (11)- 1 mg (42) tablets,dose pack See Rx Instructions PO PER PKG DIR Qty: 53 0RF Rx Instructions: PO PER PKG DIR loratadine 10 MG tablet,disintegrating 10 mg PO DAILY simvastatin 10 MG tablet 10 mg PO DAILY calcium citrate 250 MG tablet 500 mg PO DAILY cholecalciferol (vitamin D3) [Vitamin D3] 2,000 UNIT tablet 2,000 unit PO DAILY Breztri Aerosphere 160-9-4.8 mcg/actuation HFA aerosol inhaler See Rx Instructions .ROUTE .COMPLEX Qty: 10.7 12RF Dose Instruction: INHALE 2 PUFFS BY MOUTH TWICE DAILY FOR COPD Patient Comments: per H&P not started yet, awaiting pharmacy. Rx Instructions: INHALE 2 PUFFS BY MOUTH TWICE DAILY FOR COPD gabapentin 400 mg capsule 400 mg PO QPM Patient Comments: TAKE 1 CAPSULE BY MOUTH EVERY EVENING. polyethylene glycol 3350 17 gram powder in packet 255 g PO DAILY PRN Rx Instructions: Mix 255 gm in 64 oz of gatorade or juice. Drink as directed albuterol sulfate 1.25 mg/3 mL Solution For Nebulization 1.25 mg INHALATION QID PRN clopidogrel 75 mg tablet 75 mg PO HS Patient Comments: TAKE 1 TABLET BY MOUTH DAILY ferrous sulfate 325 mg (65 mg iron) tablet 325 mg PO QDAY Patient Comments: TAKE 1 TABLET BY MOUTH TWICE DAILY. omeprazole 20 mg capsule,delayed release(DR/EC) 20 mg PO DAILY Patient Comments: TAKE 1 CAPSULE BY MOUTH EVERY DAY albuterol sulfate 90 mcg/actuation HFA aerosol inhaler 2 puff INHALATION Q4H PRN PRN Patient Comments: INHALE 2 PUFFS BY MOUTH EVERY 4 HOURS IF NEEDED hydroxyzine pamoate 25 mg capsule 25 mg PO TID PRN PRN Patient Comments: TK 1 C PO TID PRF ITCHING Xarelto 2.5 mg tablet 2.5 mg PO BID Patient Comments: TAKE 1 TABLET BY MOUTH TWICE DAILY acetaminophen 500 mg tablet 1,000 mg PO Q6H PRN (Reason: pain) Xarelto 10 mg tablet 20 mg PO DAILY Patient Comments: Per [facility] Vascular pantoprazole 20 mg tablet,delayed release (DR/EC) 20 mg PO DAILY Patient Comments: TAKE 1 TABLET BY MOUTH ONCE DAILY FOR REFLUX nicotine 14 mg/24 hr patch 24 hour 1 patch transdermal DAILY magnesium oxide 250 mg magnesium tablet 250 mg PO DAILY diclofenac sodium 3 % gel 0.1 g topical BID Rx Instructions: per cm2 lesion size; completely cover lesion Discharge Instructions Stand Alone Forms: [facility] Post-Op CataractBatsheva ([facility]U) Discharge Orders Discharge Orders: Discharge Order (Routine); Ordered 12/19/23 Ordered By: Robert Arias DS: Diagnosis Discharge Diagnosis (1) Posterior subcapsular age-related cataract, right eye: Status: Resolved (2) Nuclear age-related cataract, right eye: Status: Resolved
--- NOTE | 2023-12-19 11:18 | W.ANESPOSTOP ---
Postoperative Evaluation Date, Time and Location Date Performed: 12/19/23 Time Performed: 11:18 Patient Location: Day Surgery Unit Vital Signs Most Recent Imported Vital Signs: Most Recent Vital Signs Temp Pulse Resp BP Pulse Ox 36.3 C L 80 16 147/80 H 96 12/19/23 11:08 12/19/23 11:08 12/19/23 11:08 12/19/23 11:08 12/19/23 11:08 Pain Score Most Recent Pain Score: Most Recent Pain Score Pain Level 0 12/19/23 11:08 Assessment Mental Status: Awake (Alert & Oriented to Patient Baseline) Airway and Respiratory Function: Patent airway with normal (patient baseline) respiratory exam Cardiovascular Function: Hemodynamically Stable Hydration Status: Adequately Hydrated Nausea & Vomiting: No Nausea or Vomiting Pain: Pt. Denies Any Pain Peripheral Nerve Block: Patient did not receive a nerve block
== END 2023-12-19 11:28 | disposition home or self-care (01) ==
PROVIDERS: PCP Nurse Practitioner Family; Visit Provider Ophthalmology
PROC: (CPT 66984; principal; 2023-12-19 10:30)
DX: H25.041 Posterior subcapsular polar age-related cataract, right eye (principal); H25.11 Age-related nuclear cataract, right eye; K21.9 Gastro-esophageal reflux disease without esophagitis; Z98.42 Cataract extraction status, left eye
CPT/HCPCS: 66984; 00123; V2632; J2003

== ENCOUNTER 2023-12-31 15:23 | Outpatient (REF) | payer MEDICARE, MEDICAID, SELFPAY | END 2023-12-31 15:24 | disposition home or self-care (01) | LOC: NCHCN 15:23 | PROVIDERS: PCP Nurse Practitioner Family; Visit Provider Nurse Practitioner Family | DX: R35.0 Frequency of micturition (principal) | CPT/HCPCS: 87086 ==

== ENCOUNTER → 2024-02-04 10:46 | Outpatient (BNVA) | payer MEDICARE, MEDICAID, SELFPAY | PROVIDERS: PCP Nurse Practitioner Family; Referring Provider Nurse Practitioner Family; Visit Provider Physician Assistant Surgical | DX: J44.9 Chronic obstructive pulmonary disease, unspecified (principal); F17.200 Nicotine dependence, unspecified, uncomplicated; J96.91 Respiratory failure, unspecified with hypoxia; J45.909 Unspecified asthma, uncomplicated | CPT/HCPCS: 99214 ==

== ENCOUNTER → 2024-03-23 02:04 | Outpatient (CLI) | payer MEDICARE, SELFPAY ==
--- NOTE | 2024-03-23 | DI.US_ITS ---
Exam(s) US SOFT TISS ABD WALL/LOW BACK EXAM: US SOFT TISS ABD WALL/LOW BACK CLINICAL HISTORY: Unspecified abd pain, R10.9, ? hernias. TECHNIQUE: Ultrasound was performed using standard protocol. COMPARISON: CT CT ABD AORTA CTA W RUNOFF from 09/04/[address] THORAX CTA from 09/04/2023 FINDINGS: Sonographic assessment utilizing grayscale and color Doppler imaging was performed and targeted to th e area of clinical concern. The area of patient pain with scan the right upper and chondral, left up per quadrant and xiphoid regions. No mass, fluid collection or hernia is identified. IMPRESSION: Negative soft tissue ultrasound. DATA REPOSITORY:
--- NOTE | 2024-03-23 | DI.RAD_ITS ---
Exam(s) XR THORACIC SPINE COMPLETE EXAM: XR THORACIC SPINE COMPLETE CLINICAL HISTORY: Pain in thoracic spine, M54.6. TECHNIQUE: 2D digital imaging was performed. Three views. COMPARISON: No exams were available for comparison FINDINGS: BONES: There is no fracture or destructive lesion. The vertebral bodies and posterior elements are un remarkable. ALIGNMENT: Within normal limits. DISKS: Interverebral disc spaces are maintained. Minimal anterior endplate osteophytes in the mid t horacic region. SOFT TISSUE: Visualized lungs are clear. IMPRESSION: Minimal degenerative changes in the midthoracic spine. DATA REPOSITORY: RADIATION DOSE DELIVERED:
== END ==
PROVIDERS: PCP Nurse Practitioner Family; Visit Provider Nurse Practitioner Family
DX: R10.9 Unspecified abdominal pain (principal)
CPT/HCPCS: 72072; 76705

== ENCOUNTER 2024-04-08 01:12 | Outpatient (CLI) | payer OTHER, MEDICARE, SELFPAY ==
--- NOTE | 2024-04-08 10:57 | W.6MWT ---
Date of service: 04/08/24 Time of Service: 10:06 6 Minute Walk Test Note: Baseline O2 saturations are 87% on room air. Patient 305 meters and demonstrated low O2 saturations to 83%.
== END 2024-04-08 01:13 | disposition home or self-care (01) ==
LOC: RT 01:12
PROVIDERS: PCP Nurse Practitioner Family; Visit Provider Pediatrics Pediatric Rheumatology
DX: J44.9 Chronic obstructive pulmonary disease, unspecified (principal)
CPT/HCPCS: 00123; 94618

== ENCOUNTER 2024-05-06 18:32 | Emergency (ER) | payer MEDICARE, SELFPAY ==
[2024-05-06] VITALS (10 sets, daily range): BP systolic 137–164; BP diastolic 66–74; PULSE 76–92; RESP 9–28; TEMP 36.5; O2SAT 90–97
--- NOTE | 2024-05-06 18:30 | RT.EKG_ITS ---
APPROVED REPORT Exam: Resting ECG Reason for Exam: Dyspnea Patient Location: E HR:96 bpm ECG Measurements Heart Rate 96 AXIS CA 125 P 89 QRSd 92 QRS 77 QT 331 T 69 QTc 418 Conclusion Sinus rhythm...normal P axis, V-rate 60- 99 Right atrial enlargement...P>0.25mV 2 lds or<-0.24mV aVR/aVL Normal [place] Nonspecific ST-T changes There are no significant changes compared to prior EKG performed on 09/04/2023 at 15:12.
--- NOTE | 2024-05-06 18:48 | ED.GENADUL_ITS ---
Discharge Plan Disposition Patient Disposition: Home Condition: Stable Discharge Details Clinical Impression: COPD exacerbation Primary Care Provider: Arline Amador ED Provider: Keaton Antunez Home Meds and New Rx's Prescriptions: Continued varenicline [Chantix Starting Month Box] 0.5 mg (11)- 1 mg (42) tablets,dose pack See Rx Instructions PO PER PKG DIR Qty: 53 0RF Rx Instructions: PO PER PKG DIR azithromycin 250 mg tablet 250 mg PO .COMPLEX Qty: 90 4RF Rx Instructions: 250 mg orally; Airsupra 90-80 mcg/actuation HFA aerosol inhaler 2 inh inhalation ONCE Qty: 10.7 0RF Rx Instructions: as a single dose; may repeat up to 6 doses per day (12 inhalations) loratadine 10 MG tablet,disintegrating 10 mg PO DAILY simvastatin 10 MG tablet 10 mg PO DAILY calcium citrate 250 MG tablet 500 mg PO DAILY cholecalciferol (vitamin D3) [Vitamin D3] 2,000 UNIT tablet 2,000 unit PO DAILY albuterol sulfate 1.25 mg/3 mL solution for nebulization 2.5 mg INHALATION .Q4-6H PRN bupropion HCl 150 mg tablet sustained-release 12 hr 150 mg PO DAILY lisinopril 10 mg tablet 10 mg PO DAILY loratadine [Allergy Relief (loratadine)] 10 mg tablet 10 mg PO DAILY magnesium 250 mg tablet 250 mg PO DAILY polyethylene glycol 3350 [Miralax] 17 gram/dose powder 17 g PO DAILY (DME) Oxygen Tank See Rx Instructions .Route Rx Instructions: As directed pantoprazole 20 mg tablet,delayed release (DR/EC) 20 mg PO DAILY prednisone 20 mg tablet 20 mg PO DAILY simvastatin 10 mg tablet 10 mg PO QHS valacyclovir [Valtrex] 500 mg tablet 500 mg PO Q12H PRN Xarelto 2.5 mg tablet 2.5 mg PO BID Breztri Aerosphere 160-9-4.8 mcg/actuation HFA aerosol inhaler See Rx Instructions .ROUTE .COMPLEX Qty: 10.7 12RF Dose Instruction: INHALE 2 PUFFS BY MOUTH TWICE DAILY FOR COPD Patient Comments: per H&P not started yet, awaiting pharmacy. Rx Instructions: INHALE 2 PUFFS BY MOUTH TWICE DAILY FOR COPD gabapentin 400 mg capsule 400 mg PO QPM Patient Comments: TAKE 1 CAPSULE BY MOUTH EVERY EVENING. polyethylene glycol 3350 17 gram powder in packet 255 g PO DAILY PRN Rx Instructions: Mix 255 gm in 64 oz of gatorade or juice. Drink as directed clopidogrel 75 mg tablet 75 mg PO HS Patient Comments: TAKE 1 TABLET BY MOUTH DAILY ferrous sulfate 325 mg (65 mg iron) tablet 325 mg PO QDAY Patient Comments: TAKE 1 TABLET BY MOUTH TWICE DAILY. omeprazole 20 mg capsule,delayed release(DR/EC) 20 mg PO DAILY Patient Comments: TAKE 1 CAPSULE BY MOUTH EVERY DAY albuterol sulfate 90 mcg/actuation HFA aerosol inhaler 2 puff INHALATION Q4H PRN PRN Patient Comments: INHALE 2 PUFFS BY MOUTH EVERY 4 HOURS IF NEEDED hydroxyzine pamoate 25 mg capsule 25 mg PO TID PRN PRN Patient Comments: TK 1 C PO TID PRF ITCHING Xarelto 2.5 mg tablet 2.5 mg PO BID Patient Comments: TAKE 1 TABLET BY MOUTH TWICE DAILY acetaminophen 500 mg tablet 1,000 mg PO Q6H PRN (Reason: pain) Xarelto 10 mg tablet 20 mg PO DAILY Patient Comments: Per [facility] [place] Vascular pantoprazole 20 mg tablet,delayed release (DR/EC) 20 mg PO DAILY Patient Comments: TAKE 1 TABLET BY MOUTH ONCE DAILY FOR REFLUX nicotine 14 mg/24 hr patch 24 hour 1 patch transdermal DAILY magnesium oxide 250 mg magnesium tablet 250 mg PO DAILY diclofenac sodium 3 % gel 0.1 g topical BID Rx Instructions: per cm2 lesion size; completely cover lesion Discharge Instructions Instructions: COPD Exacerbation, Adult ED Additional Instructions: You were seen in the emergency department for your COPD exacerbation, continue your outpatient steroids, continue the azithromycin if you have not finished it already. You are found to have no significant elevation of white blood cells, no markers of sepsis and no pneumonia on your workup today, he improved significantly with 3 DuoNebs as well as some magnesium which helps open the airways. Please continue your at home treatments as needed for COPD. Please return for any increasing cough with fever especially, body aches or viral syndrome, severe chest pain especially with exertion. Referrals: Arline Amador [Primary Care Provider] - HPI General Date/Time Provider Initiated Documentation: 05/06/24 18:48 . HPI Narrative: 58 year-old female presents to ED today by POV/ambulating with a chief complaint of increasing SOB, seen at PCP office last week- started on prednisone for empiric COPD exacerbation, getting worse with onset for over one week. Quality described as worsening shortness of breath, cough with white/yellow sputum, mid- sternal ache, no radiation to high fever, nausea/vomiting, black/bloody diarrhea, dysuria, confusion, severe headache, visual changes, palpitations. Severity is described as severe. Palliating factors include prednisone at home without relief- has 3 days left. Provoking factors include nothing specific. Events leading up to the incident/Associated Symptoms: Patient has not had to increase her home O2 of 2L. Patient is anticoagulated. Related Data Home Medications ?Medication ?Instructions ?Recorded ?Confirmed calcium citrate 500 mg PO DAILY 05/02/15 02/11/24 cholecalciferol (vitamin D3) 50 2,000 unit PO DAILY 05/02/15 02/11/24 mcg (2,000 unit) tablet (Vitamin D3) loratadine 10 mg disintegrating 10 mg PO DAILY 05/02/15 12/19/23 tablet simvastatin 10 mg tablet 10 mg PO DAILY 05/02/15 12/19/23 albuterol sulfate 90 mcg/actuation 2 puff inhalation Q4H PRN PRN 12/11/20 02/11/24 aerosol inhaler clopidogrel 75 mg tablet 75 mg PO HS 12/11/20 02/11/24 ferrous sulfate 325 mg (65 mg 325 mg PO QDAY 12/11/20 02/11/24 iron) tablet gabapentin 400 mg capsule 400 mg PO QPM 12/11/20 02/11/24 hydroxyzine pamoate 25 mg capsule 25 mg PO TID PRN PRN 12/11/20 12/19/23 omeprazole 20 mg capsule,delayed 20 mg PO DAILY 12/11/20 12/19/23 release polyethylene glycol 3350 17 gram 255 g PO DAILY PRN 12/11/20 12/19/23 oral powder packet rivaroxaban 2.5 mg tablet (Xarelto) 2.5 mg PO BID 12/11/20 12/19/23 acetaminophen 500 mg tablet 1,000 mg PO Q6H PRN pain 07/03/22 02/11/24 varenicline 0.5 mg (11)-1 mg (42) See Rx Instructions PO PER PKG DIR 10/18/22 12/19/23 tablets in a dose pack (AirClic #53 dose pk Starting Month Box) diclofenac sodium 3 % topical gel 0.1 g topical BID 12/03/23 02/11/24 magnesium oxide 250 mg PO DAILY 12/03/23 12/19/23 nicotine 14 mg/24 hr daily 1 patch transdermal DAILY 12/03/23 02/11/24 transdermal patch pantoprazole 20 mg tablet,delayed 20 mg PO DAILY 12/03/23 12/19/23 release rivaroxaban 10 mg tablet (Xarelto) 20 mg PO DAILY 12/03/23 12/19/23 Oxygen 01/05/24 02/11/24 albuterol sulfate 1.25 mg/3 mL 2.5 mg inhalation .Q4-6H PRN 01/05/24 02/11/24 solution for nebulization bupropion HCl 150 mg tablet,12 hr 150 mg PO DAILY 01/05/24 02/11/24 sustained-release lisinopril 10 mg tablet 10 mg PO DAILY 01/05/24 loratadine 10 mg tablet (Allergy 10 mg PO DAILY 01/05/24 02/11/24 Relief (loratadine)) magnesium 250 mg tablet 250 mg PO DAILY 01/05/24 02/11/24 pantoprazole 20 mg tablet,delayed 20 mg PO DAILY 01/05/24 02/11/24 release polyethylene glycol 3350 17 17 g PO DAILY 01/05/24 02/11/24 gram/dose oral powder (Miralax) prednisone 20 mg tablet 20 mg PO DAILY 01/05/24 02/11/24 rivaroxaban 2.5 mg tablet (Xarelto) 2.5 mg PO BID 01/05/24 02/11/24 simvastatin 10 mg tablet 10 mg PO QHS 01/05/24 02/11/24 valacyclovir 500 mg tablet 500 mg PO Q12H PRN 01/05/24 (Valtrex) albuterol 90 mcg-budesonide 80 2 inh inhalation ONCE #10.7 grams 02/04/24 02/04/24 mcg/actuation HFA aerosol inhaler (Airsupra) azithromycin 250 mg tablet 250 mg PO .COMPLEX #90 tabs 02/04/24 02/04/24 budesonide 160 mcg-glycopyr 9 See Rx Instructions .Route 04/10/24 mcg-formot 4.8 mcg/actuation HFA .COMPLEX #10.7 grams inhaler (Breztri Aerosphere) Previous Rx's ?Medication ?Instructions ?Recorded varenicline 0.5 mg (11)-1 mg (42) See Rx Instructions PO PER PKG DIR 10/18/22 tablets in a dose pack (Chantix #53 dose pk Starting Month Box) albuterol 90 mcg-budesonide 80 2 inh inhalation ONCE #10.7 grams 02/04/24 mcg/actuation HFA aerosol inhaler (Airsupra) azithromycin 250 mg tablet 250 mg PO .COMPLEX #90 tabs 02/04/24 budesonide 160 mcg-glycopyr 9 See Rx Instructions .Route 04/10/24 mcg-formot 4.8 mcg/actuation HFA .COMPLEX #10.7 grams inhaler (Breztri Aerosphere) Allergies Allergy/AdvReac Type Severity Reaction Status Date / Time umeclidinium (From Incruse Allergy Severe chest Verified 05/06/24 18:42 Ellipta) tightness bupropion (From Wellbutrin) AdvReac Intermediate Nausea Verified 05/06/24 18:42 tramadol HCl (From Ultram) AdvReac Intermediate Nausea Verified 05/06/24 18:42 General Stated Complaint: SOB CAMPOS: 3 Review of Systems All systems reviewed & are unremarkable except as noted in HPI and below Exam Narrative Exam Narrative: GENERAL APPEARANCE: Frail, non-toxic, awake and alert, atraumatic, no acute distress. SKIN: Warm, pale, dry, intact, without rashes/lesions/ulcerations. HEAD: Normocephalic, atraumatic, normal hair distribution for gender/age. EYES: Normal conjunctiva, no exudates on lids/lashes. ENT: Nares patent, no circumoral cyanosis, no facial swelling NECK: Supple, trachea midline, painless cervical ROM. LUNGS/CHEST: Diffuse inspiratory and expiratory wheezes and poor air movement, labored respirations on home O2 2L by NC, increased A/P diameter, symmetrical expansion, no chest wall deformity HEART (CV/PV): Regular rate and rhythm without murmur, no peripheral edema, no JVD. ABDOMEN: Soft, non-distended, no guarding. MSK: Normal ROM, no swelling/deformity to bilateral UEs or LEs, moving all extremities without weakness, no cyanosis, spine midline without tenderness, normal curvature. NEURO: Mental Status AAOx4 - alert to person, place, time, events No facial droop, no forehead involvement. Motor: No focal weakness - strength 5/5 in bilateral UEs and LEs, proximal and distal, symmetric. Sensory: sensation intact to light touch globally. Gait NT. PSYCH: euthymic, cooperative, pleasant, appropriate speech Course Vital Signs Vital signs: Vital Signs Temperature 36.5 C 05/06/24 18:36 Pulse 92 H 05/06/24 18:36 Respiratory Rate 28 H 05/06/24 18:36 Blood Pressure 142/69 H 05/06/24 18:36 Pulse Oximetry 90 L 05/06/24 18:36 Temperature 36.5 C 05/06/24 18:36 Temperature Source Skin 05/06/24 18:36 Pulse 92 H 05/06/24 18:36 Respiratory Rate 28 H 05/06/24 18:36 Blood Pressure 142/69 H 05/06/24 18:36 Blood Pressure Position Sitting 05/06/24 18:36 Pulse Oximetry 90 L 05/06/24 18:36 Oxygen Delivery Method Nasal Cannula 05/06/24 18:36 Oxygen Flow Rate 2 05/06/24 18:36 Pain Level 5 05/06/24 18:36 Medical Decision Making This dictation utilizes [id number] dictation software and may contain unedited grammatical errors. 58 year-old female presents to ED today by POV/ambulating with a chief complaint of increasing SOB, seen at PCP office last week- started on prednisone for empiric COPD exacerbation, getting worse with onset for over one week. Quality described as worsening shortness of breath, cough with white/yellow sputum, mid- sternal ache, no radiation to high fever, nausea/vomiting, black/bloody diarrhea, dysuria, confusion, severe headache, visual changes, palpitations. Severity is described as severe. Palliating factors include prednisone at home without relief- has 3 days left. Provoking factors include nothing specific. Events leading up to the incident/Associated Symptoms: Patient has not had to increase her home O2 of 2L. Patients' medical history: COPD, PVD, osteopenia, anemia, asthma, chronic respiratory failure, history of endarterectomy. Family and social history: Noncontributory. Pertinent exam findings / vital signs include diffuse wheezing with poor air movement, frail and malnourished, benign abdomen, neuro intact. Differential / pathologies of concern include acute on chronic respiratory failure, pneumonia, COPD exacerbation, unlikely ACS. Diagnostic studies of: -CBC, CMP, magnesium, lactate, troponin, BNP, VBG, XR portable, blood cultures, urinalysis, procalcitonin, EKG. -CBC shows no leukocytosis, no left shift -pH is 7.35 likely chronic retainer of the pCO2 of 77 on VBG -CMP is unremarkable -Troponin negative with reliable onset -BNP negative -Lactate negative, procalcitonin negative -UA benign -CXR shows no PNA, shows emphysema -EKG shows sinus rhythm at 96 bpm with P waves followed by narrow complex QRS with normal axis, good R wave progression, normal QT QTc, no ST changes of ischemia Interventions of: -1 g IV magnesium over 30 minutes, 9 mL DuoNeb. ED Course/Assessment/Plan: 58-year-old female presents with shortness of breath, seen by PCP last week and started on azithromycin and prednisone but failing to improve. Patient does not have any increased O2 demand beyond her baseline 2 L by nasal cannula, she received an hour-long DuoNeb here as well as IV magnesium for shortness of breath with significant improvement. She was evaluated by respiratory therapy with no would likely benefit of any BiPAP due to chronic CO2 retention but compensated VBG otherwise. There is no evidence of pneumonia and she has no evidence of sepsis on labs or severe infection I do think that she needs to continue her at home treatments of nebulizers and follow-up with her primary care provider, strict return criteria for further exacerbations of shortness of breath or chest pain. Findings not consistent with ACS, PNA, increased O2 demand, CHF, Sepsis. Disposition of COPD Exacerbation. Patient verbalized understanding of the plan and return to ED criteria and engaged in shared decision making. Medical Records Medical records reviewed: Yes I reviewed the patient's medical records. Imaging Data Radiologic Study: Attestation: I personally reviewed and interpreted this imaging study as follows: Imaging: X-Ray Radiologist's impression: Exam: XR Chest Exam date and time: 05/06/2024 7:26 PM Age: 58 years old Clinical indication: Shortness of breath TECHNIQUE: Imaging protocol: Radiologic exam of the chest. Views: 1 view. COMPARISON: CT THORAX CTA 09/04/2023 6:09 PM FINDINGS: Lungs: Bilateral moderate to severe hyperinflation suggesting underlying COPD or emphysema. No infiltrates or edema. Pleural spaces: No acute pleural change. Heart/Mediastinum: Normal heart size. Bones/joints: No acute skeletal change. IMPRESSION: 1. Hyperinflation suggesting underlying COPD or emphysema. No acute infiltrates or edema. 2. No acute pleural change. Dictated and Authenticated by: Quinton Song MD. Lab Data Lab results reviewed: Yes I reviewed the patient's lab results. Labs: 05/06/24 20:05 Blood Blood Culture - Pending 05/06/24 19:46 Blood Blood Culture - Pending Laboratory Tests Range/Units 05/06/24 05/06/24 19:46 20:20 WBC (4.4-10.8) 10^3/uL 8.62 RBC (3.93-5.22) 10^6/uL 3.91 L Hgb (11.2-15.7) g/dL 13.9 Hct (36.0-46.0) % 43.1 MCV (80-95) fL 110 H MCH (27.0-33.0) pg 35.5 H MCHC (32.0-36.0) % 32.3 RDW (11.7-14.6) % 13.0 Plt Count (130-400) 10^3/uL 266 MPV (8.0-11.0) fL 9.1 Immature Gran % % 0.5 Neutrophils % % 79.7 Lymphocytes % % 12.1 Monocytes % % 7.5 Eosinophils % % 0.1 Basophils % % 0.1 Nucleated RBC % (0.0-0.3) % 0.0 Absolute Neutrophils (1.2-6.7) 10^3/uL 6.87 H Absolute Lymphocytes (1.2-3.4) 10^3/uL 1.04 L Absolute Monocytes (0.1-0.8) 10^3/uL 0.65 Absolute Eosinophils (0.0-0.7) 10^3/uL 0.01 Absolute Basophils (0.0-0.2) 10^3/uL 0.01 RBC Morphology See Below Macrocytosis 3+ VBG pH (7.31-7.41) 7.35 VBG pCO2 (41-51) mmHg 77 H* VBG pO2 mmHg 62 VBG HCO3 (23-28) mmol/L 42 H VBG Total CO2 (24-29) mmol/L 38 H VBG O2 Saturation % 93 VBG Base Excess (-2-3) mmol/L 17 H VBG Lactate (0.6-1.4) mmol/L 0.7 Sodium (136-145) mmol/L 138 Potassium (3.5-5.1) mmol/L 4.3 Chloride (98-107) mmol/L 95 L Carbon Dioxide (21.0-32.0) mmol/L 42.7 H Anion Gap (3-11) mmol/L 0.3 L BUN (7-18) mg/dL 14 Creatinine (0.55-1.02) mg/dL 0.6 Est GFR (CKD-EPI 2020) (mL/min/1.73m2) 103.98 Glucose (74-106) mg/dL 99 Calcium (8.5-10.1) mg/dL 9.4 Magnesium (1.8-2.4) mg/dL 1.8 Total Bilirubin (0.2-1.0) mg/dL 0.25 AST (15-37) U/L 26 ALT (14-59) U/L 48 Alkaline Phosphatase (46-116) U/L 51 Troponin I (< or =60) ng/L < 50 NT-Pro-B Natriuret Pep (<300) pg/mL 192 Total Protein (6.4-8.2) g/dL 7.2 Albumin (3.4-5.0) g/dL 4.0 Procalcitonin ng/mL < 0.1 Urine Color (Yellow) Yellow Urine Clarity (Clear) Clear Urine pH (5-8) 6.0 Ur Specific [place] (1.005-1.025) 1.025 Urine Protein (Neg-Trace) mg/dL Negative Urine Ketones (Negative) mg/dL Negative Urine Blood (Negative) Negative Urine Nitrite (Negative) Negative Urine Bilirubin (Negative) Negative Urine Urobilinogen (Up to 0.2) mg/dL 0.2 Ur Leukocyte Esterase (Negative) Negative Urine Glucose (Negative) mg/dL Negative Quality:SDOH Health Related Social Needs: 2 No Data to Display PFSH All Active Problems (Updated 05/06/24 @ 20:51 by KJ Mendoza) COPD exacerbation (Acute) Carpal tunnel syndrome on left (Acute 05/02/15) Chest pain (Acute) COPD (chronic obstructive pulmonary disease) (Chronic) Current smoker (Acute) Respiratory failure with hypoxia (Acute) Medical History (Updated 05/06/24 @ 20:51 by KJ Mendoza) Arthropathy Polycythemia Bladder prolapse Anxiety Depression Fibrocystic breast disease Osteopenia Peripheral vascular disease mild claudication Shoulder pain Carpal tunnel syndrome Low back pain syndrome Fibromyalgia URI (upper respiratory infection) Anemia Plantar fasciitis Neuropathic arthritis PTSD (post-traumatic stress disorder) Dysuria Knee joint pain Degenerative joint disease Hyperlipidemia Tobacco abuse Asthma Gastroesophageal reflux disease Chronic obstructive lung disease Surgical History (Updated 01/05/24 @ 10:29 by Belen Hemphill) Cataract History of endarterectomy left iliofemoral endarterectomy w/patch angioplasty,left SFA and profunda end arterectomy, left external iliac stent placement 09/18/23. Hx of thrombosis of lower extremity (2012) Thrombectomy with stent placement RLE and repeat thrombectomy 2020. Open Carpal Tunnel release (07/28/15) LEFT WRIST/ Excision, Distal Clavicle (12/09/12) LEFT Family History (Updated 01/05/24 @ 10:27 by Belen Hemphill) Mother Uterine cancer Emphysema, unspecified Father Lung cancer Sister Lung cancer Emphysema, unspecified Paternal Grandfather Cancer Social History (Updated 01/05/24 @ 10:28 by Belen Hemphill) Smoking/Tobacco Use Status: Current every day Tobacco Type: cigarettes Smoking packs per day: 0.25 Smoking cigarettes per day: 5.0 Years smoked: 45 Smoking pack-years: 11.25 Tobacco: How many years used: 45 Smoking risk assessment performed?: Yes Alcohol Intake: never Drug use: Occasionally Substance use type: marijuana Details: Marijuana every couple of nights. Do you feel safe at home: Yes Do you feel safe in your relationship?: Yes
--- NOTE | 2024-05-06 19:29 | DI.RAD_ITS ---
Exam(s) XR PORTABLE CHEST AP EXAM: XR PORTABLE CHEST AP CLINICAL HISTORY: shortness of breath. TECHNIQUE: 2D digital imaging was performed. COMPARISON: CR,XR XR CHEST 2V PA LATERAL from 07/03/2022 FINDINGS: Single AP portable view. Heart size is upper normal. The mediastinum is not widened. Bilateral hyperinflation again noted. Lungs are clear. No infiltrates nor obvious pleural effusions. No pulmonary edema. No fractures. IMPRESSION: No acute pulmonary findings on this single AP portable view of the chest. DATA REPOSITORY: RADIATION DOSE DELIVERED:
[2024-05-06] MEDS: Albuterol/Ipratropium 3 ML UPD VIAL 9 ML UPD (19:52)
[2024-05-06] MEDS: MAGNESIUM SULFATE 1 GM/100 ML BAG IVINF (19:52)
[2024-05-06 19:55] LABS: BE (Venous) 17 mmol/L (-2-3); HCO3 (Venous) 42 mmol/L (23-28); Lactate 0.7 mmol/L (0.6-1.4); O2 Sat (Venous) 93 %; TCO2 (Venous) 38 mmol/L (24-29); pH (Venous) 7.35 (7.31-7.41); pO2 (Venous) 62 mmHg
[2024-05-06 19:57] LABS: Abs Immature Grans 0.04 10^3/uL (0.0-0.06); Absolute Basophil Count 0.01 10^3/uL (0.0-0.2); Absolute Eosinophil Count 0.01 10^3/uL (0.0-0.7); Absolute Lymphocyte Count 1.04 10^3/uL (1.2-3.4); Absolute Monocyte Count 0.65 10^3/uL (0.1-0.8); Absolute Neutrophil Count 6.87 10^3/uL (1.2-6.7); Basophils % 0.1 %; Eosinophils % 0.1 %; HCT 43.1 % (36.0-46.0); HGB 13.9 g/dL (11.2-15.7); Immature Grans % 0.5 %; Lymphocytes % 12.1 %; MCH 35.5 pg (27.0-33.0); MCHC 32.3 % (32.0-36.0); MCV 110 fL (80-95); MPV 9.1 fL (8.0-11.0); Monocytes % 7.5 %; Neutrophils % 79.7 %; Platelet Count 266 10^3/uL (130-400); RBC 3.91 10^6/uL (3.93-5.22); RDW-SD 53.1 fL; WBC 8.62 10^3/uL (4.4-10.8); pCO2 (Venous) 77 mmHg (41-51)
[2024-05-06 20:03] LABS: Macrocytosis 3+
--- NOTE | 2024-05-06 20:08 | DI.VRAD_ITS ---
PROCEDURE INFORMATION: Exam: XR Chest Exam date and time: 05/06/2024 7:26 PM Age: 58 years old Clinical indication: Shortness of breath TECHNIQUE: Imaging protocol: Radiologic exam of the chest. Views: 1 view. COMPARISON: CT THORAX CTA 09/04/2023 6:09 PM FINDINGS: Lungs: Bilateral moderate to severe hyperinflation suggesting underlying COPD or emphysema. No infiltrates or edema. Pleural spaces: No acute pleural change. Heart/Mediastinum: Normal heart size. Bones/joints: No acute skeletal change. IMPRESSION: 1. Hyperinflation suggesting underlying COPD or emphysema. No acute infiltrates or edema. 2. No acute pleural change. Dictated and Authenticated by: Quinton Song MD. Ordering:CHARMAINE Pugh MD
[2024-05-06 20:18] LABS: ALT 48 U/L (14-59); AST 26 U/L (15-37); Alkaline Phosphatase 51 U/L (46-116); Anion Gap 0.3 mmol/L (3-11); BUN 14 mg/dL (7-18); Bilirubin, Total 0.25 mg/dL (0.2-1.0); CO2 42.7 mmol/L (21.0-32.0); CREATININE 0.6 mg/dL (0.55-1.02); Calcium 9.4 mg/dL (8.5-10.1); Chloride 95 mmol/L (98-107); Estimated GFR 103.98 (mL/min/1.73m2); Glucose 99 mg/dL (74-106); Magnesium 1.8 mg/dL (1.8-2.4); NT-proBNP 192 pg/mL (<300); Potassium 4.3 mmol/L (3.5-5.1); Sodium 138 mmol/L (136-145); Total Protein 7.2 g/dL (6.4-8.2); Troponin I < 50 ng/L (< or =60)
[2024-05-06 20:25] LABS: Bilirubin Negative (Negative); Blood Negative (Negative); Clarity Clear (Clear); Glucose Negative (Negative); Ketones Negative (Negative); Leukocyte Esterase Negative (Negative); Nitrite Negative (Negative); Specific Gravity 1.025 (1.005-1.025); Urobilinogen 0.2 mg/dL (Up to 0.2)
[2024-05-06 20:32] LABS: Procalcitonin < 0.1 ng/mL
== END 2024-05-06 20:55 | disposition home or self-care (01) ==
PROVIDERS: Emergency Provider Physician Assistant; PCP Nurse Practitioner Family
DX: J44.1 Chronic obstructive pulmonary disease with (acute) exacerbation (principal); E78.5 Hyperlipidemia, unspecified; Z79.01 Long term (current) use of anticoagulants; Z79.02 Long term (current) use of antithrombotics/antiplatelets; Z79.82 Long term (current) use of aspirin
CPT/HCPCS: 80053; 82805; 84145; 87040; 93005; 94640; 96365; 99285; 71045; 81003; 83605; 83735; 83880; 84484; 85025; 93010; 99284; J3475; J7620

== ENCOUNTER → 2024-05-25 11:00 | Outpatient (BNVA) | payer MEDICARE, SELFPAY | PROVIDERS: PCP Nurse Practitioner Family; Referring Provider Nurse Practitioner Family; Visit Provider Physician Assistant Surgical | DX: J45.909 Unspecified asthma, uncomplicated (principal); J44.9 Chronic obstructive pulmonary disease, unspecified; J96.91 Respiratory failure, unspecified with hypoxia; F17.200 Nicotine dependence, unspecified, uncomplicated | CPT/HCPCS: 94640; 99214; J7620 ==

== ENCOUNTER 2024-07-16 14:53 | Outpatient (REF) | payer MEDICARE, SELFPAY ==
[2024-07-16 16:07] LABS: Abs Immature Grans 0.01 10^3/uL (0.0-0.06); Absolute Basophil Count 0.05 10^3/uL (0.0-0.2); Absolute Eosinophil Count 0.08 10^3/uL (0.0-0.7); Absolute Lymphocyte Count 1.15 10^3/uL (1.2-3.4); Absolute Monocyte Count 0.79 10^3/uL (0.1-0.8); Absolute Neutrophil Count 3.32 10^3/uL (1.2-6.7); Basophils % 0.9 %; Eosinophils % 1.5 %; HCT 42.4 % (36.0-46.0); HGB 13.8 g/dL (11.2-15.7); Immature Grans % 0.2 %; Lymphocytes % 21.3 %; MCH 35.8 pg (27.0-33.0); MCHC 32.5 % (32.0-36.0); MCV 110 fL (80-95); Monocytes % 14.6 %; Neutrophils % 61.5 %; Platelet Count 227 10^3/uL (130-400); RBC 3.85 10^6/uL (3.93-5.22); RDW 11.7 % (11.7-14.6); RDW-SD 47.3 fL
[2024-07-16 16:28] LABS: Diff Comment RBC Morph Reviewed; Macrocytosis 2+
[2024-07-16 16:32] LABS: TSH 1.69 uIU/mL (0.36-3.74)
[2024-07-19 14:37] LABS: Albumin g/dL 4.1 g/dL (3.6-5.2); Total Protein 6.9 g/dL (6.3-8.2)
== END 2024-07-16 14:54 | disposition home or self-care (01) ==
LOC: NCHCN 14:53
PROVIDERS: PCP Nurse Practitioner Family; Visit Provider Nurse Practitioner Family
DX: M62.81 Muscle weakness (generalized) (principal)
CPT/HCPCS: 81003; 84165; 84443; 85025

== ENCOUNTER 2024-09-30 02:34 | Outpatient (CLI) | payer MEDICARE, SELFPAY ==
--- NOTE | 2024-09-30 | DI.DEXA_ITS ---
Exam(s) XR DEXA BONE DENSITY W/WO NAVJOT EXAM: XR DEXA BONE DENSITY W/WO NAVJOT CLINICAL HISTORY: ASYMPTOMATIC MENOPAUSAL STATE Z78.0 TECHNIQUE: eduClipper Horizon C densitometer analysis of left hip, lumbar spine and left forearm. Lat eral survey image of the thoracic and lumbar spine. COMPARISON: 2011 and 2216 FINDINGS: Lateral view of the thoracic and lumbar spine shows no evidence of compression fractures. Bone mineral density measurements of the lumbar spine correspond to a total T-score of -1.9, in the osteopenic range. This represents a 9.4 percent decrease compared with 2016 and a 6.7 percent decrea se compared to 2011. Bone mineral density measurements of the left hip correspond to a total T-score of -2.7, in the oste oporotic range. This represents an 18.4 percent decrease compared to 2016 and 24.6 percent decrease compared to 2011. The femoral neck T-score is -1.6. Theleft forearm bone mineral density measurements correspond to a T-score of the distal 3rd of -1.6, in the osteopenic range. This represents a 6.7 percent decrease from 2016 and 12.9 percent decrease compared to 2011. IMPRESSION: Osteopenia of the forearm and lumbar spine. Osteoporosis of the hip. Significant decrease in bone m ineral density from prior exams.
--- NOTE | 2024-09-30 13:49 | DI.RAD_ITS ---
Exam(s) XR HIP RT COMPLETE AP PELVIS EXAM: XR HIP RT COMPLETE AP PELVIS CLINICAL HISTORY: LOW BACK PAIN M54.50. TECHNIQUE: 2D digital imaging was performed. Two views COMPARISON: CR XR DEXA BONE DENSITY W/WO NAVJOT from 09/30/2024 FINDINGS: BONES: No acute fracture is present. No bony destructive lesion is seen. Of the sacrum is mainly obsc ured by overlying stool and bowel gas. JOINTS: No dislocation present. The hip joint spaces are maintained. There are mild degenerative c hanges of the sacroiliac joints. SOFT TISSUE: Iliac artery stents. Vascular calcifications. IMPRESSION: No acute abnormality. DATA REPOSITORY: RADIATION DOSE DELIVERED:
--- NOTE | 2024-09-30 13:49 | DI.RAD_ITS ---
Exam(s) XR LUMBAR SPINE COMPLETE EXAM: XR LUMBAR SPINE COMPLETE CLINICAL HISTORY: LOW BACK PAIN M54.50. TECHNIQUE: 2D digital imaging was performed. Five views. COMPARISON: CR XR DEXA BONE DENSITY W/WO NAVJOT from 09/30/2024 FINDINGS: BONES: No fracture or destructive lesion. Vertebral body heights are maintained. No facet hypertro phy identified . DISKS: Intervertebral disc spaces are maintained. ALIGNMENT: Lumbar spinal alignment is within normal limits. SOFT TISSUE: Iliac artery stents. Aortic calcification. The lung bases are clear. IMPRESSION: Unremarkable radiographs of the lumbar spine. DATA REPOSITORY: RADIATION DOSE DELIVERED:
== END 2024-09-30 02:54 ==
PROVIDERS: PCP Nurse Practitioner Family; Visit Provider Family Medicine
DX: Z78.0 Asymptomatic menopausal state (principal); Z13.820 Encounter for screening for osteoporosis; M54.50 Low back pain, unspecified
CPT/HCPCS: 77080; 72110; 73502

== ENCOUNTER 2024-11-09 06:58 | Emergency (ER) | payer SELFPAY ==
[2024-11-09] VITALS (47 sets, daily range): BP systolic 142–199; BP diastolic 68–90; PULSE 101–116; RESP 9–30; TEMP 37.2–38.1; O2SAT 74–97
--- NOTE | 2024-11-09 06:45 | RT.EKG_ITS ---
APPROVED REPORT Exam: Resting ECG Reason for Exam: SOB Patient Location: E HR:109 bpm ECG Measurements Heart Rate 109 AXIS HI 131 P 82 QRSd 93 QRS 77 QT 313 T 61 QTc 423 Conclusion Sinus tachycardia...rate> 99 Right atrial enlargement...P>0.25mV 2 lds or<-0.24mV aVR/aVL
[2024-11-09] MEDS: Albuterol/Ipratropium 3 ML UPD VIAL (07:13)
--- NOTE | 2024-11-09 07:23 | W.ED.GENAD ---
Discharge Plan Disposition Patient Disposition: Home Condition: Stable Discharge Details Clinical Impression: Acute exacerbation of chronic obstructive pulmonary disease, Influenza A Primary Care Provider: Lelo Bowman ED Provider: Franklyn Bahena Home Meds and New Rx's Prescriptions: New prednisone 20 mg tablet 60 mg PO DAILY 4 Days Qty: 12 0RF oseltamivir 75 mg capsule 75 mg PO Q12H 5 Days Qty: 9 0RF amoxicillin-pot clavulanate 875-125 mg tablet 1 tab PO BID Qty: 14 0RF Continued aspirin [Adult Low Dose Aspirin] 81 mg tablet,delayed release (DR/EC) 81 mg PO DAILY montelukast [Singulair] 10 mg tablet 10 mg PO DAILY Qty: 90 4RF ipratropium-albuterol 0.5 mg-3 mg(2.5 mg base)/3 mL solution for nebulization 3 ml inhalation Q4H PRN (Reason: wheezing) Qty: 180 6RF varenicline tartrate [Chantix Starting Month Box] 0.5 mg (11)- 1 mg (42) tablets,dose pack See Rx Instructions PO PER PKG DIR Qty: 53 0RF Rx Instructions: PO PER PKG DIR azithromycin 250 mg tablet 250 mg PO .COMPLEX Qty: 90 4RF Rx Instructions: 250 mg orally; Airsupra 90-80 mcg/actuation HFA aerosol inhaler 2 inh inhalation ONCE Qty: 10.7 0RF Rx Instructions: as a single dose; may repeat up to 6 doses per day (12 inhalations) loratadine 10 MG tablet,disintegrating 10 mg PO DAILY simvastatin 10 MG tablet 10 mg PO DAILY calcium citrate 250 MG tablet 500 mg PO DAILY cholecalciferol (vitamin D3) [Vitamin D3] 2,000 UNIT tablet 2,000 unit PO DAILY albuterol sulfate 1.25 mg/3 mL solution for nebulization 2.5 mg INHALATION .Q4-6H PRN bupropion HCl 150 mg tablet sustained-release 12 hr 150 mg PO DAILY lisinopril 10 mg tablet 10 mg PO DAILY loratadine [Allergy Relief (loratadine)] 10 mg tablet 10 mg PO DAILY magnesium 250 mg tablet 250 mg PO DAILY polyethylene glycol 3350 [Miralax] 17 gram/dose powder 17 g PO DAILY (DME) Oxygen Tank See Rx Instructions .Route Rx Instructions: As directed pantoprazole 20 mg tablet,delayed release (DR/EC) 20 mg PO DAILY prednisone 20 mg tablet 20 mg PO DAILY simvastatin 10 mg tablet 10 mg PO QHS valacyclovir [Valtrex] 500 mg tablet 500 mg PO Q12H PRN Xarelto 2.5 mg tablet 2.5 mg PO BID Marcie Aerosphere 160-9-4.8 mcg/actuation HFA aerosol inhaler See Rx Instructions .ROUTE .COMPLEX Qty: 10.7 12RF Dose Instruction: INHALE 2 PUFFS BY MOUTH TWICE DAILY FOR COPD Patient Comments: per H&P not started yet, awaiting pharmacy. Rx Instructions: INHALE 2 PUFFS BY MOUTH TWICE DAILY FOR COPD gabapentin 400 mg capsule 400 mg PO QPM Patient Comments: TAKE 1 CAPSULE BY MOUTH EVERY EVENING. polyethylene glycol 3350 17 gram powder in packet 255 g PO DAILY PRN Rx Instructions: Mix 255 gm in 64 oz of gatorade or juice. Drink as directed clopidogrel 75 mg tablet 75 mg PO HS Patient Comments: TAKE 1 TABLET BY MOUTH DAILY ferrous sulfate 325 mg (65 mg iron) tablet 325 mg PO QDAY Patient Comments: TAKE 1 TABLET BY MOUTH TWICE DAILY. omeprazole 20 mg capsule,delayed release(DR/EC) 20 mg PO DAILY Patient Comments: TAKE 1 CAPSULE BY MOUTH EVERY DAY albuterol sulfate 90 mcg/actuation HFA aerosol inhaler 2 puff INHALATION Q4H PRN PRN Patient Comments: INHALE 2 PUFFS BY MOUTH EVERY 4 HOURS IF NEEDED hydroxyzine pamoate 25 mg capsule 25 mg PO TID PRN PRN Patient Comments: TK 1 C PO TID PRF ITCHING Xarelto 2.5 mg tablet 2.5 mg PO BID Patient Comments: TAKE 1 TABLET BY MOUTH TWICE DAILY acetaminophen 500 mg tablet 1,000 mg PO Q6H PRN (Reason: pain) Xarelto 10 mg tablet 20 mg PO DAILY Patient Comments: [place] [facility] [place] [facility] pantoprazole 20 mg tablet,delayed release (DR/EC) 20 mg PO DAILY Patient Comments: TAKE 1 TABLET BY MOUTH ONCE DAILY FOR REFLUX nicotine 14 mg/24 hr patch 24 hour 1 patch transdermal DAILY magnesium oxide 250 mg magnesium tablet 250 mg PO DAILY diclofenac sodium 3 % gel 0.1 g topical BID Rx Instructions: per cm2 lesion size; completely cover lesion Discharge Instructions Additional Instructions: You are being treated for a COPD exacerbation. You are also positive for the flu. Continue to use your inhalers and nebulizers as needed. Follow-up with your primary care provider if you are not improving in a few days. Return To the emergency department if you feel more ill, have severe worsening shortness of breath or severe chest pain. HPI General Date/Time Provider Initiated Documentation: 11/09/24 06:58. Limitations to Documentation: no limitations. Information obtained by: patient. History of Present Illness 59 year old F presents to the emergency department with the chief complaint of dyspnea, cough, fever, described as moderate, Patient started experiencing this day(s) (1) and it has been constant. No relieving factors improve symptom(s), No exacerbating factors reported . Patient notes denies chest pain and nausea/vomiting. Patient did receive the following treatments prior to arrival, none Related Data Home Medications ?Medication ?Instructions ?Recorded ?Confirmed calcium citrate 500 mg PO DAILY 05/02/15 02/11/24 cholecalciferol (vitamin D3) 50 2,000 unit PO DAILY 05/02/15 05/25/24 mcg (2,000 unit) tablet (Vitamin D3) loratadine 10 mg disintegrating 10 mg PO DAILY 05/02/15 12/19/23 tablet simvastatin 10 mg tablet 10 mg PO DAILY 05/02/15 12/19/23 albuterol sulfate 90 mcg/actuation 2 puff inhalation Q4H PRN PRN 12/11/20 05/25/24 aerosol inhaler clopidogrel 75 mg tablet 75 mg PO HS 12/11/20 05/25/24 ferrous sulfate 325 mg (65 mg 325 mg PO QDAY 12/11/20 02/11/24 iron) tablet gabapentin 400 mg capsule 400 mg PO QPM 12/11/20 05/25/24 hydroxyzine pamoate 25 mg capsule 25 mg PO TID PRN PRN 12/11/20 12/19/23 omeprazole 20 mg capsule,delayed 20 mg PO DAILY 12/11/20 12/19/23 release polyethylene glycol 3350 17 gram 255 g PO DAILY PRN 12/11/20 12/19/23 oral powder packet rivaroxaban 2.5 mg tablet (Xarelto) 2.5 mg PO BID 12/11/20 12/19/23 acetaminophen 500 mg tablet 1,000 mg PO Q6H PRN pain 07/03/22 05/25/24 varenicline tartrate 0.5 mg (11)-1 See Rx Instructions PO PER PKG DIR 10/18/22 12/19/23 mg (42) tablets in a dose pack #53 dose pk (Chantix Starting Month Box) diclofenac sodium 3 % topical gel 0.1 g topical BID 12/03/23 02/11/24 magnesium oxide 250 mg PO DAILY 12/03/23 12/19/23 nicotine 14 mg/24 hr daily 1 patch transdermal DAILY 12/03/23 02/11/24 transdermal patch pantoprazole 20 mg tablet,delayed 20 mg PO DAILY 12/03/23 12/19/23 release rivaroxaban 10 mg tablet (Xarelto) 20 mg PO DAILY 12/03/23 12/19/23 Oxygen 01/05/24 02/11/24 albuterol sulfate 1.25 mg/3 mL 2.5 mg inhalation .Q4-6H PRN 01/05/24 05/25/24 solution for nebulization bupropion HCl 150 mg tablet,12 hr 150 mg PO DAILY 01/05/24 02/11/24 sustained-release lisinopril 10 mg tablet 10 mg PO DAILY 01/05/24 loratadine 10 mg tablet (Allergy 10 mg PO DAILY 01/05/24 02/11/24 Relief (loratadine)) magnesium 250 mg tablet 250 mg PO DAILY 01/05/24 02/11/24 pantoprazole 20 mg tablet,delayed 20 mg PO DAILY 01/05/24 05/25/24 release polyethylene glycol 3350 17 17 g PO DAILY 01/05/24 02/11/24 gram/dose oral powder (Miralax) prednisone 20 mg tablet 20 mg PO DAILY 01/05/24 02/11/24 rivaroxaban 2.5 mg tablet (Xarelto) 2.5 mg PO BID 01/05/24 02/11/24 simvastatin 10 mg tablet 10 mg PO QHS 01/05/24 05/25/24 valacyclovir 500 mg tablet 500 mg PO Q12H PRN 01/05/24 (Valtrex) albuterol 90 mcg-budesonide 80 2 inh inhalation ONCE #10.7 grams 02/04/24 05/25/24 mcg/actuation HFA aerosol inhaler (Airsupra) azithromycin 250 mg tablet 250 mg PO .COMPLEX #90 tabs 02/04/24 05/25/24 budesonide 160 mcg-glycopyr 9 See Rx Instructions .Route 04/10/24 05/25/24 mcg-formot 4.8 mcg/actuation HFA .COMPLEX #10.7 grams inhaler (Breztri Aerosphere) aspirin 81 mg tablet,delayed 81 mg PO DAILY 05/25/24 05/25/24 release (Adult Low Dose Aspirin) ipratropium 0.5 mg-albuterol 3 mg 3 ml inhalation Q4H PRN wheezing 05/25/24 05/25/24 (2.5 mg base)/3 mL nebulization #180 mL soln montelukast 10 mg tablet 10 mg PO DAILY #90 tabs 05/25/24 05/25/24 (Singulair) amoxicillin 875 mg-potassium 1 tab PO BID #14 tabs 11/09/24 clavulanate 125 mg tablet oseltamivir 75 mg capsule 75 mg PO Q12H 5 days #9 caps 11/09/24 prednisone 20 mg tablet 60 mg (3 x 20 mg) PO DAILY 4 days 11/09/24 #12 tabs Previous Rx's ?Medication ?Instructions ?Recorded varenicline tartrate 0.5 mg (11)-1 See Rx Instructions PO PER PKG DIR 10/18/22 mg (42) tablets in a dose pack #53 dose pk (Chantix Starting Month Box) albuterol 90 mcg-budesonide 80 2 inh inhalation ONCE #10.7 grams 02/04/24 mcg/actuation HFA aerosol inhaler (Airsupra) azithromycin 250 mg tablet 250 mg PO .COMPLEX #90 tabs 02/04/24 budesonide 160 mcg-glycopyr 9 See Rx Instructions .Route 04/10/24 mcg-formot 4.8 mcg/actuation HFA .COMPLEX #10.7 grams inhaler (Breztri Aerosphere) ipratropium 0.5 mg-albuterol 3 mg 3 ml inhalation Q4H PRN wheezing 05/25/24 (2.5 mg base)/3 mL nebulization #180 mL soln montelukast 10 mg tablet 10 mg PO DAILY #90 tabs 05/25/24 (Singulair) amoxicillin 875 mg-potassium 1 tab PO BID #14 tabs 11/09/24 clavulanate 125 mg tablet oseltamivir 75 mg capsule 75 mg PO Q12H 5 days #9 caps 11/09/24 prednisone 20 mg tablet 60 mg (3 x 20 mg) PO DAILY 4 days 11/09/24 #12 tabs Allergies Allergy/AdvReac Type Severity Reaction Status Date / Time umeclidinium (From Incruse Allergy Severe chest Verified 11/09/24 07:10 Ellipta) tightness bupropion (From Wellbutrin) AdvReac Intermediate Nausea Verified 11/09/24 07:10 tramadol HCl (From Ultram) AdvReac Intermediate Nausea Verified 11/09/24 07:10 General Stated Complaint: RespSymp CAMPOS: 2 Review of Systems All systems reviewed & are unremarkable except as noted in HPI and below Constitutional Constitutional: Reports chills, Reports fever(s) and Denies weakness Cardiovascular Cardiovascular: Denies chest pain and Reports dyspnea Respiratory Respiratory: Reports cough and Reports dyspnea Gastrointestinal Gastrointestinal: Denies abdominal pain, Denies nausea and Denies vomiting Neurologic Neurologic: Denies weakness Psychiatric Psychiatric: Denies depression Exam Const General: no acute distress Orientation: alert HENMT Head: normal to inspection Ears: external ears normal General nose exam: external nose normal Mouth: moist mucous membranes Eyes General: appearance normal, both eyes and all related structures Neck Neck: normal visual inspection Resp Auscultation: rhonchi and wheezes Cardio Jugular venous pressure: no JVD Rate: regular rate Skin General skin exam: no rashes or lesions noted Neuro General: patient alert and patient oriented x3 Extrem General: normal to inspection Psych Mental Status: mental status grossly normal Course Vital Signs Vital signs: Vital Signs Temperature 38.1 C H 11/09/24 07:02 Pulse 104 H 11/09/24 07:02 Respiratory Rate 30 H 11/09/24 07:02 Blood Pressure 161/79 H 11/09/24 07:02 Pulse Oximetry 95 11/09/24 07:02 Temperature 38.1 C H 11/09/24 07:10 Temperature Source Temporal Artery Scan 11/09/24 07:10 Pulse 102 H 11/09/24 07:13 Respiratory Rate 30 H 11/09/24 07:10 Blood Pressure 161/79 H 11/09/24 07:10 Pulse Oximetry 95 11/09/24 07:10 Oxygen Delivery Method Non-Rebreather 11/09/24 07:10 Medical Decision Making 59-year-old female with a history of COPD chronically on oxygen, peripheral vascular disease on Xarelto, who comes in with 1 day of fevers, chills, cough and difficulty breathing. She denies any chest pain or chest pressure. Denies any abdominal pain or vomiting. She has noted to be 88% on her normal 2 L. She is intermittently having a harsh dry cough. She has rhonchi at the bases bilaterally and apical wheezing. No JVD or leg swelling. Given her history I suspect a COPD exacerbation. Will treat with DuoNebs and Solu-Medrol. She has noted to have a low-grade fever here 38.1, will send a Fluvid. Will also send for CBC, CMP, troponins, proBNP and procalcitonin and obtain a chest x-ray. She is on the Xarelto and her lung exam findings are consistent with COPD exacerbation so I doubt entities such as a PE. X-ray without acute findings. Her blood work does show no emergent findings. She is positive for the flu. Delta troponin is negative. She is now maintaining over 90% on her normal 2 L. She sounds much better on lung exam. She feels well enough for discharge home which I feel is reasonable. I will start her on Tamiflu and given her COPD with increased cough I will start her on Augmentin as well.She will follow-up with her PCP if not improving and return precautions given Differential Diagnosis Differential Diagnosis: COPD exacerbation, influenza, COVID, pneumonia Lab Data Lab results reviewed: Yes I reviewed the patient's lab results. ECG Data Attestation: I personally reviewed and interpreted this ECG (s) as follows: Prior ECG tracings: available for review Interpretation: sinus tachycardia, rate of 109 pr 131 no phu Quality:SDOH Health Related Social Needs: No Data to Display PFSH All Active Problems (Updated 11/09/24 @ 09:53 by Franklyn Bahena MD) Influenza A (Acute) Acute exacerbation of chronic obstructive pulmonary disease (Acute) Carpal tunnel syndrome on left (Acute 05/02/15) Chest pain (Acute) COPD (chronic obstructive pulmonary disease) (Chronic) Current smoker (Acute) Respiratory failure with hypoxia (Acute) Medical History (Updated 11/09/24 @ 09:53 by Franklyn Bahena MD) Arthropathy Polycythemia Bladder prolapse Anxiety Depression Fibrocystic breast disease Osteopenia Peripheral vascular disease mild claudication Shoulder pain Carpal tunnel syndrome Low back pain syndrome Fibromyalgia URI (upper respiratory infection) Anemia Plantar fasciitis Neuropathic arthritis PTSD (post-traumatic stress disorder) Dysuria Knee joint pain Degenerative joint disease Hyperlipidemia Tobacco abuse Asthma Gastroesophageal reflux disease Chronic obstructive lung disease Surgical History (Updated 01/05/24 @ 10:29 by Belen Hemphill) Cataract History of endarterectomy left iliofemoral endarterectomy w/patch angioplasty,left SFA and profunda endarterectomy, left external iliac stent placement 09/18/23. Hx of thrombosis of lower extremity (2012) Thrombectomy with stent placement RLE and repeat thrombectomy 2020. Open Carpal Tunnel release (07/28/15) LEFT WRIST/ Excision, Distal Clavicle (12/09/12) LEFT Family History (Updated 01/05/24 @ 10:27 by Belen Hemphill) Mother Uterine cancer Emphysema, unspecified Father Lung cancer Sister Lung cancer Emphysema, unspecified Paternal Grandfather Cancer Social History (Updated 01/05/24 @ 10:28 by Belen Hemphill) Smoking/Tobacco Use Status: Current every day Tobacco Type: cigarettes Smoking packs per day: 0.25 Smoking cigarettes per day: 5.0 Years smoked: 45 Smoking pack-years: 11.25 Tobacco: How many years used: 45 Smoking risk assessment performed?: Yes Alcohol Intake: never Drug use: Occasionally Substance use type: marijuana Details: Marijuana every couple of nights. Do you feel safe at home: Yes Do you feel safe in your relationship?: Yes
[2024-11-09 07:27] LABS: BE (Venous) 16 mmol/L (-2-3); HCO3 (Venous) 41 mmol/L (23-28); O2 Sat (Venous) 84 %; TCO2 (Venous) 37 mmol/L (24-29); pH (Venous) 7.36 (7.31-7.41); pO2 (Venous) 48 mmHg
[2024-11-09 07:28] LABS: Abs Immature Grans 0.05 10^3/uL (0.0-0.06); Absolute Basophil Count 0.03 10^3/uL (0.0-0.2); Absolute Eosinophil Count 0.01 10^3/uL (0.0-0.7); Absolute Lymphocyte Count 0.33 10^3/uL (1.2-3.4); Absolute Monocyte Count 1.04 10^3/uL (0.1-0.8); Absolute Neutrophil Count 6.83 10^3/uL (1.2-6.7); Basophils % 0.4 %; Eosinophils % 0.1 %; HCT 44.6 % (36.0-46.0); HGB 14.5 g/dL (11.2-15.7); Immature Grans % 0.6 %; MCHC 32.5 % (32.0-36.0); MCV 111 fL (80-95); MPV 9.1 fL (8.0-11.0); Monocytes % 12.5 %; Neutrophils % 82.4 %; Platelet Count 210 10^3/uL (130-400); RBC 4.03 10^6/uL (3.93-5.22); RDW 12.3 % (11.7-14.6); RDW-SD 51.4 fL; WBC 8.29 10^3/uL (4.4-10.8)
[2024-11-09] MEDS: Albuterol/Ipratropium 3 ML UPD VIAL UPD ×2 (07:28)
[2024-11-09] MEDS: methylPREDNISolone SUCC 125 MG VIAL IVP (07:30)
[2024-11-09 07:32] LABS: pCO2 (Venous) 73 mmHg (41-51)
[2024-11-09 07:44] LABS: INR 1.1 (0.9-1.1); PTT Activated 26.2 sec (20.6-30.2); Prothrombin Time 10.6 sec (9.1-11.1)
[2024-11-09 07:54] LABS: ALT 38 U/L (14-59); AST 29 U/L (15-37); Alkaline Phosphatase 61 U/L (46-116); Anion Gap -1.5 mmol/L (3-11); BUN 12 mg/dL (7-18); Bilirubin, Total 0.32 mg/dL (0.2-1.0); CO2 43.5 mmol/L (21.0-32.0); CREATININE 0.5 mg/dL (0.55-1.02); Calcium 9.1 mg/dL (8.5-10.1); Chloride 94 mmol/L (98-107); Estimated GFR 107.98 (mL/min/1.73m2); Glucose 113 mg/dL (74-106); Magnesium 1.7 mg/dL (1.8-2.4); NT-proBNP 455 pg/mL (<300); Potassium 3.9 mmol/L (3.5-5.1); Sodium 136 mmol/L (136-145); Total Protein 7.8 g/dL (6.4-8.2); Troponin I 15 ng/L (<or=51)
--- NOTE | 2024-11-09 08:05 | DI.RAD_ITS ---
Exam(s) XR PORTABLE CHEST AP EXAM: XR PORTABLE CHEST AP CLINICAL HISTORY: cough fever. TECHNIQUE: 2D digital imaging was performed. COMPARISON: CR,XR XR PORTABLE CHEST AP from 05/06/2024 FINDINGS: Single AP portable view. Heart size is normal. The mediastinum is not widened. Bilateral hyperinflation again noted. Some symmetrical interstitial disease noted in the lung rodriguez . No pleural effusions. No confluent infiltrates. Nasal oxygen tubing is noted. No fractures. IMPRESSION: Probably element of chronic interstitial lung disease. No confluent infiltrates and no pleural effus ions evident DATA REPOSITORY: RADIATION DOSE DELIVERED:
[2024-11-09 08:10] LABS: Procalcitonin < 0.10 ng/mL
[2024-11-09 08:25] LABS: COVID-19 PCR Negative (Negative); Influenza A PCR Positive (Negative); Influenza B PCR Negative (Negative); RSV PCR Negative (Negative)
[2024-11-09 08:28] LABS: Source Nasopharynx
[2024-11-09] MEDS: Amoxicillin 875/Clav. 125 TAB PO (08:55)
[2024-11-09] MEDS: Oseltamivir 75 MG CAP PO (08:55)
[2024-11-09 09:25] LABS: Troponin I 14 ng/L (<or=51)
== END 2024-11-09 12:03 | disposition home or self-care (01) ==
PROVIDERS: Emergency Provider Emergency Medicine; PCP Nurse Practitioner Family
DX: J09.X2 Influenza due to identified novel influenza A virus with other respiratory manifestations (principal); J44.1 Chronic obstructive pulmonary disease with (acute) exacerbation; R50.9 Fever, unspecified; I10 Essential (primary) hypertension; F17.210 Nicotine dependence, cigarettes, uncomplicated
CPT/HCPCS: 36415; 80053; 82805; 84145; 87637; 93005; 94640; 96374; 99284; 71045; 83735; 83880; 84443; 84484; 85025; 85610; 85730; 93010; J2919; J7620

== ENCOUNTER 2024-11-18 12:08 | Emergency (ER) | payer SELFPAY ==
[2024-11-18] VITALS (33 sets, daily range): BP systolic 87–153; BP diastolic 57–114; PULSE 74–95; RESP 9–18; TEMP 36.8; O2SAT 87–97
--- NOTE | 2024-11-18 12:15 | RT.EKG_ITS ---
APPROVED REPORT Exam: Resting ECG Reason for Exam: chest pain, sob Patient Location: E HR:88 bpm ECG Measurements Heart Rate 88 AXIS NV 136 P 86 QRSd 90 QRS 80 QT 350 T 61 QTc 424 Conclusion Sinus rhythm 88 normal axis no stemi
--- NOTE | 2024-11-18 14:00 | DI.RAD_ITS ---
Exam(s) XR CHEST 2V PA LATERAL EXAM: XR CHEST 2V PA LATERAL CLINICAL HISTORY: cough. TECHNIQUE: 2D digital imaging was performed. COMPARISON: CR XR PORTABLE CHEST AP from 11/09/2024 FINDINGS: 2 views: Heart size is normal. The mediastinum is not widened. There is bilateral pulmonary hyperinflation again noted but presently no confluent infiltrates nor pl eural effusions. The previously described increased interstitial markings seen on chest x-ray 9 days ago are no longer evident. Calcified granuloma noted posteriorly on the lateral view IMPRESSION: COPD hyperinflation but no acute pulmonary findings DATA REPOSITORY: RADIATION DOSE DELIVERED:
[2024-11-18 14:16] LABS: Abs Immature Grans 0.03 10^3/uL (0.0-0.06); Absolute Basophil Count 0.02 10^3/uL (0.0-0.2); Absolute Eosinophil Count 0.05 10^3/uL (0.0-0.7); Absolute Lymphocyte Count 1.22 10^3/uL (1.2-3.4); Absolute Monocyte Count 0.67 10^3/uL (0.1-0.8); Absolute Neutrophil Count 3.03 10^3/uL (1.2-6.7); Basophils % 0.4 %; HCT 41.6 % (36.0-46.0); Immature Grans % 0.6 %; Lymphocytes % 24.3 %; MCH 34.9 pg (27.0-33.0); MCHC 31.3 % (32.0-36.0); MCV 112 fL (80-95); MPV 9.3 fL (8.0-11.0); Monocytes % 13.3 %; Neutrophils % 60.4 %; Platelet Count 272 10^3/uL (130-400); RBC 3.73 10^6/uL (3.93-5.22); RDW 11.7 % (11.7-14.6); RDW-SD 48.3 fL; WBC 5.02 10^3/uL (4.4-10.8)
[2024-11-18] MEDS: Lactated Ringers 500 ML IV (14:16)
[2024-11-18] MEDS: Albuterol/Ipratropium 3 ML UPD VIAL UPD (14:19)
[2024-11-18 14:27] LABS: Diff Comment RBC Morph Reviewed; Macrocytosis 1+
[2024-11-18 14:37] LABS: ALT 40 U/L (14-59); AST 26 U/L (15-37); Albumin 3.4 g/dL (3.4-5.0); Alkaline Phosphatase 61 U/L (46-116); Anion Gap -1.7 mmol/L (3-11); BUN 13 mg/dL (7-18); CO2 42.7 mmol/L (21.0-32.0); CREATININE 0.4 mg/dL (0.55-1.02); Calcium 9.1 mg/dL (8.5-10.1); Chloride 97 mmol/L (98-107); Estimated GFR 113.94 (mL/min/1.73m2); Glucose 115 mg/dL (74-106); Magnesium 1.8 mg/dL (1.8-2.4); Sodium 138 mmol/L (136-145); Total Protein 7.2 g/dL (6.4-8.2); Troponin I 8 ng/L (<or=51)
--- NOTE | 2024-11-18 15:37 | W.ED.GENAD ---
Discharge Plan Disposition Patient Disposition: Home Condition: Stable Discharge Details Clinical Impression: COPD (chronic obstructive pulmonary disease), Influenza A, Nonadherence to medication Primary Care Provider: Lelo Bowman ED Provider: Izaiah Miller Home Meds and New Rx's Prescriptions: Continued aspirin [Adult Low Dose Aspirin] 81 mg tablet,delayed release (DR/EC) 81 mg PO DAILY montelukast [Singulair] 10 mg tablet 10 mg PO DAILY Qty: 90 4RF ipratropium-albuterol 0.5 mg-3 mg(2.5 mg base)/3 mL solution for nebulization 3 ml inhalation Q4H PRN (Reason: wheezing) Qty: 180 6RF varenicline tartrate [Chantix Starting Month Box] 0.5 mg (11)- 1 mg (42) tablets,dose pack See Rx Instructions PO PER PKG DIR Qty: 53 0RF Rx Instructions: PO PER PKG DIR azithromycin 250 mg tablet 250 mg PO .COMPLEX Qty: 90 4RF Rx Instructions: 250 mg orally; loratadine 10 MG tablet,disintegrating 10 mg PO DAILY simvastatin 10 MG tablet 10 mg PO DAILY calcium citrate 250 MG tablet 500 mg PO DAILY cholecalciferol (vitamin D3) [Vitamin D3] 2,000 UNIT tablet 2,000 unit PO DAILY albuterol sulfate 1.25 mg/3 mL solution for nebulization 2.5 mg INHALATION .Q4-6H PRN bupropion HCl 150 mg tablet sustained-release 12 hr 150 mg PO DAILY lisinopril 10 mg tablet 10 mg PO DAILY loratadine [Allergy Relief (loratadine)] 10 mg tablet 10 mg PO DAILY magnesium 250 mg tablet 250 mg PO DAILY polyethylene glycol 3350 [Miralax] 17 gram/dose powder 17 g PO DAILY (DME) Oxygen Tank See Rx Instructions .Route Rx Instructions: As directed pantoprazole 20 mg tablet,delayed release (DR/EC) 20 mg PO DAILY prednisone 20 mg tablet 20 mg PO DAILY simvastatin 10 mg tablet 10 mg PO QHS valacyclovir [Valtrex] 500 mg tablet 500 mg PO Q12H PRN Xarelto 2.5 mg tablet 2.5 mg PO BID gabapentin 400 mg capsule 400 mg PO QPM Patient Comments: TAKE 1 CAPSULE BY MOUTH EVERY EVENING. polyethylene glycol 3350 17 gram powder in packet 255 g PO DAILY PRN Rx Instructions: Mix 255 gm in 64 oz of gatorade or juice. Drink as directed clopidogrel 75 mg tablet 75 mg PO HS Patient Comments: TAKE 1 TABLET BY MOUTH DAILY ferrous sulfate 325 mg (65 mg iron) tablet 325 mg PO QDAY Patient Comments: TAKE 1 TABLET BY MOUTH TWICE DAILY. omeprazole 20 mg capsule,delayed release(DR/EC) 20 mg PO DAILY Patient Comments: TAKE 1 CAPSULE BY MOUTH EVERY DAY albuterol sulfate 90 mcg/actuation HFA aerosol inhaler 2 puff INHALATION Q4H PRN PRN Patient Comments: INHALE 2 PUFFS BY MOUTH EVERY 4 HOURS IF NEEDED hydroxyzine pamoate 25 mg capsule 25 mg PO TID PRN PRN Patient Comments: TK 1 C PO TID PRF ITCHING Xarelto 2.5 mg tablet 2.5 mg PO BID Patient Comments: TAKE 1 TABLET BY MOUTH TWICE DAILY acetaminophen 500 mg tablet 1,000 mg PO Q6H PRN (Reason: pain) Xarelto 10 mg tablet 20 mg PO DAILY Patient Comments: Per [facility] [place] [facility]ascular pantoprazole 20 mg tablet,delayed release (DR/EC) 20 mg PO DAILY Patient Comments: TAKE 1 TABLET BY MOUTH ONCE DAILY FOR REFLUX nicotine 14 mg/24 hr patch 24 hour 1 patch transdermal DAILY magnesium oxide 250 mg magnesium tablet 250 mg PO DAILY diclofenac sodium 3 % gel 0.1 g topical BID Rx Instructions: per cm2 lesion size; completely cover lesion amoxicillin-pot clavulanate 875-125 mg tablet 1 tab PO BID Qty: 14 0RF No Action Airsupra 90-80 mcg/actuation HFA aerosol inhaler 2 inh inhalation ONCE Qty: 10.7 0RF Rx Instructions: as a single dose; may repeat up to 6 doses per day (12 inhalations) Breztri Aerosphere 160-9-4.8 mcg/actuation HFA aerosol inhaler See Rx Instructions .ROUTE .COMPLEX Qty: 10.7 12RF Dose Instruction: INHALE 2 PUFFS BY MOUTH TWICE DAILY FOR COPD Patient Comments: per H&P not started yet, awaiting pharmacy. Rx Instructions: INHALE 2 PUFFS BY MOUTH TWICE DAILY FOR COPD Discharge Instructions Instructions: COPD Exacerbation, Adult ED Additional Instructions: Because of the difficulty filling prescription for Airsupra and Breztri, the plan will be to start Symbicort and use twice a day and then as needed with albuterol inhaler. Please follow-up with your granulator operator tomorrow. Be sure to discuss medication changes and difficulty acquiring prescribed medications. Please drink plenty of fluids and allow for plenty of rest. Please follow-up with your primary care physician. Return to the emergency department immediately for any worsening or new concerning symptoms. Referrals: [facility] Pulmonary Clinic [Provider Group] Lelo Bowman [Primary Care Provider] - [facility] General Date/Time Provider Initiated Documentation: 11/18/24 13:34. Limitations to Documentation: no limitations. Information obtained by: patient. HPI Narrative: HISTORY OF PRESENT ILLNESS The patient is a 59-year-old female with COPD, presenting with chest pain for 2 days, decreased oral intake, and decreased urinary output. She uses supplemental oxygen at 2 L/min without increased requirement. She feels shaky. She was in the ED on 11/09/2024 for acute COPD exacerbation and influenza A, treated with prednisone, Tamiflu, and Augmentin. Chest x-ray was nondiagnostic. She reports intermittent chest pain exacerbated by deep inhalation and coughing, described as central tightness around the sternum, with shortness of breath requiring assistance. She also reports weakness, loss of appetite, and difficulty with fluid intake. No peripheral edema or leg pain. No recent travel. Completed steroid course without improvement. 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 She has intermittent tremors, even while seated. A month ago, she had breathlessness while seated, using her inhaler every 4 hours and a nebulizer. She is trying to obtain Breztri but has Medicaid issues. Her cough has worsened, with nasal congestion and dryness. She quit smoking a week ago. Lives with and son. Occasionally experiences nausea but no abdominal pain. She has peripheral arterial disease with 3 stents and had leg surgery. She went to [facility] yesterday for a vascular test. Related Data Home Medications ?Medication ?Instructions ?Recorded ?Confirmed calcium citrate 500 mg PO DAILY 05/02/15 11/18/24 cholecalciferol (vitamin D3) 50 2,000 unit PO DAILY 05/02/15 11/18/24 mcg (2,000 unit) tablet (Vitamin D3) loratadine 10 mg disintegrating 10 mg PO DAILY 05/02/15 11/18/24 tablet simvastatin 10 mg tablet 10 mg PO DAILY 05/02/15 11/18/24 albuterol sulfate 90 mcg/actuation 2 puff inhalation Q4H PRN PRN 12/11/20 11/18/24 aerosol inhaler clopidogrel 75 mg tablet 75 mg PO HS 12/11/20 11/18/24 ferrous sulfate 325 mg (65 mg 325 mg PO QDAY 12/11/20 11/18/24 iron) tablet gabapentin 400 mg capsule 400 mg PO QPM 12/11/20 11/18/24 hydroxyzine pamoate 25 mg capsule 25 mg PO TID PRN PRN 12/11/20 11/18/24 omeprazole 20 mg capsule,delayed 20 mg PO DAILY 12/11/20 11/18/24 release polyethylene glycol 3350 17 gram 255 g PO DAILY PRN 12/11/20 11/18/24 oral powder packet rivaroxaban 2.5 mg tablet (Xarelto) 2.5 mg PO BID 12/11/20 11/18/24 acetaminophen 500 mg tablet 1,000 mg PO Q6H PRN pain 07/03/22 11/18/24 varenicline tartrate 0.5 mg (11)-1 See Rx Instructions PO PER PKG DIR 10/18/22 11/18/24 mg (42) tablets in a dose pack #53 dose pk (Chantix Starting Month Box) diclofenac sodium 3 % topical gel 0.1 g topical BID 12/03/23 11/18/24 magnesium oxide 250 mg PO DAILY 12/03/23 11/18/24 nicotine 14 mg/24 hr daily 1 patch transdermal DAILY 12/03/23 11/18/24 transdermal patch pantoprazole 20 mg tablet,delayed 20 mg PO DAILY 12/03/23 11/18/24 release rivaroxaban 10 mg tablet (Xarelto) 20 mg PO DAILY 12/03/23 11/18/24 Oxygen 01/05/24 11/18/24 albuterol sulfate 1.25 mg/3 mL 2.5 mg inhalation .Q4-6H PRN 01/05/24 11/18/24 solution for nebulization bupropion HCl 150 mg tablet,12 hr 150 mg PO DAILY 01/05/24 11/18/24 sustained-release lisinopril 10 mg tablet 10 mg PO DAILY 01/05/24 11/18/24 loratadine 10 mg tablet (Allergy 10 mg PO DAILY 01/05/24 11/18/24 Relief (loratadine)) magnesium 250 mg tablet 250 mg PO DAILY 01/05/24 11/18/24 pantoprazole 20 mg tablet,delayed 20 mg PO DAILY 01/05/24 11/18/24 release polyethylene glycol 3350 17 17 g PO DAILY 01/05/24 11/18/24 gram/dose oral powder (Miralax) prednisone 20 mg tablet 20 mg PO DAILY 01/05/24 11/18/24 rivaroxaban 2.5 mg tablet (Xarelto) 2.5 mg PO BID 01/05/24 11/18/24 simvastatin 10 mg tablet 10 mg PO QHS 01/05/24 11/18/24 valacyclovir 500 mg tablet 500 mg PO Q12H PRN 01/05/24 11/18/24 (Valtrex) albuterol 90 mcg-budesonide 80 2 inh inhalation ONCE #10.7 grams 02/04/24 11/18/24 mcg/actuation HFA aerosol inhaler (Airsupra) azithromycin 250 mg tablet 250 mg PO .COMPLEX #90 tabs 02/04/24 11/18/24 budesonide 160 mcg-glycopyr 9 See Rx Instructions .Route 04/10/24 11/18/24 mcg-formot 4.8 mcg/actuation HFA .COMPLEX #10.7 grams inhaler (Breztri Aerosphere) aspirin 81 mg tablet,delayed 81 mg PO DAILY 05/25/24 11/18/24 release (Adult Low Dose Aspirin) ipratropium 0.5 mg-albuterol 3 mg 3 ml inhalation Q4H PRN wheezing 05/25/24 11/18/24 (2.5 mg base)/3 mL nebulization #180 mL soln montelukast 10 mg tablet 10 mg PO DAILY #90 tabs 05/25/24 11/18/24 (Singulair) amoxicillin 875 mg-potassium 1 tab PO BID #14 tabs 11/09/24 11/18/24 clavulanate 125 mg tablet Previous Rx's ?Medication ?Instructions ?Recorded varenicline tartrate 0.5 mg (11)-1 See Rx Instructions PO PER PKG DIR 10/18/22 mg (42) tablets in a dose pack #53 dose pk (Chantix Starting Month Box) albuterol 90 mcg-budesonide 80 2 inh inhalation ONCE #10.7 grams 02/04/24 mcg/actuation HFA aerosol inhaler (Airsupra) azithromycin 250 mg tablet 250 mg PO .COMPLEX #90 tabs 02/04/24 budesonide 160 mcg-glycopyr 9 See Rx Instructions .Route 04/10/24 mcg-formot 4.8 mcg/actuation HFA .COMPLEX #10.7 grams inhaler (Breztri Aerosphere) ipratropium 0.5 mg-albuterol 3 mg 3 ml inhalation Q4H PRN wheezing 05/25/24 (2.5 mg base)/3 mL nebulization #180 mL soln montelukast 10 mg tablet 10 mg PO DAILY #90 tabs 05/25/24 (Singulair) amoxicillin 875 mg-potassium 1 tab PO BID #14 tabs 11/09/24 clavulanate 125 mg tablet Allergies Allergy/AdvReac Type Severity Reaction Status Date / Time umeclidinium (From Incruse Allergy Severe chest Verified 11/18/24 12:39 Ellipta) tightness bupropion (From Wellbutrin) AdvReac Intermediate Nausea Verified 11/18/24 12:39 tramadol HCl (From Ultram) AdvReac Intermediate Nausea Verified 11/18/24 12:39 General Stated Complaint: SOB CAMPOS: 3 Review of Systems Narrative: REVIEW OF SYSTEMS Negative for peripheral edema or leg pain. Positive for cough, nasal congestion, and dryness. Negative for abdominal pain. Positive for nausea. Exam Narrative Exam Narrative: PHYSICAL EXAM General Appearance: Thin. No distress. Vital signs: BP 112/72, HR 88, RR 18, O2 sat 90% on 2 L, Temp 36.8?C. HEENT: Tongue moist, lips dry. Respiratory: Diminished breath sounds bilaterally with mild wheezing. Cardiovascular: Heart sounds normal, no murmurs, regular rate and rhythm. Gastrointestinal: Abdomen not distended, no tenderness. Extremities: No leg swelling. No calf tenderness. Skin: Warm and dry, no rash. Neurological: Normal. Course Vital Signs Vital signs: Vital Signs Temperature 36.8 C 11/18/24 12:24 Pulse 88 11/18/24 12:24 Respiratory Rate 18 11/18/24 12:24 Blood Pressure 112/72 11/18/24 12:24 Pulse Oximetry 90 L 11/18/24 12:24 Temperature 36.8 C 11/18/24 12:24 Temperature Source Oral 11/18/24 12:24 Pulse 88 11/18/24 12:24 Respiratory Rate 18 11/18/24 12:24 Blood Pressure 112/72 11/18/24 12:24 Blood Pressure Position Sitting 11/18/24 12:24 Pulse Oximetry 90 L 11/18/24 12:24 Oxygen Delivery Method Nasal Cannula 11/18/24 12:24 Oxygen Flow Rate 2 11/18/24 12:24 Comment O2 Sat normally 88-89% on 2 lpm 11/18/24 12:24 Lab/Test Results Lab/Test Results: Laboratory Tests Range/Units 11/18/24 13:42 WBC (4.4-10.8) 10^3/uL 5.02 RBC (3.93-5.22) 10^6/uL 3.73 L Hgb (11.2-15.7) g/dL 13.0 Hct (36.0-46.0) % 41.6 MCV (80-95) fL 112 H MCH (27.0-33.0) pg 34.9 H MCHC (32.0-36.0) % 31.3 L RDW (11.7-14.6) % 11.7 Plt Count (130-400) 10^3/uL 272 MPV (8.0-11.0) fL 9.3 Immature Gran % % 0.6 Neutrophils % % 60.4 Lymphocytes % % 24.3 Monocytes % % 13.3 Eosinophils % % 1.0 Basophils % % 0.4 Nucleated RBC % (0.0-0.3) % 0.0 Absolute Neutrophils (1.2-6.7) 10^3/uL 3.03 Absolute Lymphocytes (1.2-3.4) 10^3/uL 1.22 Absolute Monocytes (0.1-0.8) 10^3/uL 0.67 Absolute Eosinophils (0.0-0.7) 10^3/uL 0.05 Absolute Basophils (0.0-0.2) 10^3/uL 0.02 RBC Morphology See Below Macrocytosis 1+ Sodium (136-145) mmol/L 138 Potassium (3.5-5.1) mmol/L 4.0 Chloride (98-107) mmol/L 97 L Carbon Dioxide (21.0-32.0) mmol/L 42.7 H Anion Gap (3-11) mmol/L -1.7 L BUN (7-18) mg/dL 13 Creatinine (0.55-1.02) mg/dL 0.4 L Est GFR (CKD-EPI 2020) (mL/min/1.73m2) 113.94 Glucose (74-106) mg/dL 115 H Calcium (8.5-10.1) mg/dL 9.1 Magnesium (1.8-2.4) mg/dL 1.8 Total Bilirubin (0.2-1.0) mg/dL 0.40 AST (15-37) U/L 26 ALT (14-59) U/L 40 Alkaline Phosphatase (46-116) U/L 61 Troponin I (<or=51) ng/L 8 Total Protein (6.4-8.2) g/dL 7.2 Albumin (3.4-5.0) g/dL 3.4 Medical Decision Making ASSESSMENT AND PLAN Initial Assessment: 59-year-old female with a history of COPD, presenting with chest pain, shortness of breath, and weakness. She has decreased p.o. intake and urinary output, and has been feeling shaky recently. Patient does have history of remote DVT - no leg swelling or pain. Compliant with anticoagulant. Differential Diagnosis: - Costochondritis: Considered due to central chest pain worse with deep breaths and cough. Plan: Symptomatic treatment. - Pneumonia: Considered due to worsened cough and nasal congestion. Plan: Chest x-ray reviewed, no acute findings. - Myocardial Infarction (PR): Considered due to chest pain. Plan: EKG reviewed, sinus rhythm, 88 bpm, no STEMI. ED Course: - EKG reviewed and interpreted by me: sinus rhythm, 88 bpm, no STEMI. - Chest x-ray reviewed and interpreted by radiology: COPD hyperinflation, no acute pulmonary findings. - Blood work planned. - IV fluids administered. - DuoNeb treatment given, patient felt much better, breathing easily, saturating well on baseline supplemental oxygen. - Labs reviewed: VBG consistent with chronic respiratory acidosis, no leukocytosis. Trop negative. - Results reviewed with the patient. - Respiratory therapy consulted, recommended switching to Symbicort due to medication affordability issues. 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 Spoke with patient's PCP, discussed ED presentation and course, ensured timely follow-up, and sent prescription for Symbicort to the pharmacy. - 1650 -- Patient reassessed and is stable. Continues to saturate well, at baseline. - Usual and customary discharge instructions reviewed. Final Assessment: Miss Casanova presented with chest pain, shortness of breath, and weakness. After evaluation, costochondritis, pneumonia, and PR were considered. Diagnostic tests including EKG and chest x-ray were performed, and treatments including DuoNeb and IV fluids were administered. The patient improved and was stable at discharge. Clinical Impression: - Pleuritic chest pain - Chronic COPD with exacerbation - Influenza A Disposition: - Discharge - Follow-Up: PCP to follow up and send Symbicort prescription. Close followup with pulmonology needed. MDM Components Evaluation: - Number of Differential Diagnoses or Management Options: Costochondritis, pneumonia, PR. - Amount and Complexity of Data Reviewed: EKG, chest x-ray, blood work, VBG, consultation with respiratory therapy, discussion with PCP. - Risk of Complication and Morbidity or Mortality: Moderate due to COPD exacerbation and potential for pneumonia or PR. This document was written with the assistance of TERESA Yañez. The patient consented to its use. Lab Data Lab results reviewed: Yes I reviewed the patient's lab results. Labs: Laboratory Tests Range/Units 11/18/24 11/18/24 13:42 15:56 WBC (4.4-10.8) 10^3/uL 5.02 RBC (3.93-5.22) 10^6/uL 3.73 L Hgb (11.2-15.7) g/dL 13.0 Hct (36.0-46.0) % 41.6 MCV (80-95) fL 112 H MCH (27.0-33.0) pg 34.9 H MCHC (32.0-36.0) % 31.3 L RDW (11.7-14.6) % 11.7 Plt Count (130-400) 10^3/uL 272 MPV (8.0-11.0) fL 9.3 Immature Gran % % 0.6 Neutrophils % % 60.4 Lymphocytes % % 24.3 Monocytes % % 13.3 Eosinophils % % 1.0 Basophils % % 0.4 Nucleated RBC % (0.0-0.3) % 0.0 Absolute Neutrophils (1.2-6.7) 10^3/uL 3.03 Absolute Lymphocytes (1.2-3.4) 10^3/uL 1.22 Absolute Monocytes (0.1-0.8) 10^3/uL 0.67 Absolute Eosinophils (0.0-0.7) 10^3/uL 0.05 Absolute Basophils (0.0-0.2) 10^3/uL 0.02 RBC Morphology See Below Macrocytosis 1+ VBG pH (7.31-7.41) 7.38 VBG pCO2 (41-51) mmHg 71 H* VBG pO2 mmHg 67 VBG HCO3 (23-28) mmol/L 42 H VBG Total CO2 (24-29) mmol/L 39 H VBG O2 Saturation % 94 VBG Base Excess (-2-3) mmol/L 17 H Sodium (136-145) mmol/L 138 Potassium (3.5-5.1) mmol/L 4.0 Chloride (98-107) mmol/L 97 L Carbon Dioxide (21.0-32.0) mmol/L 42.7 H Anion Gap (3-11) mmol/L -1.7 L BUN (7-18) mg/dL 13 Creatinine (0.55-1.02) mg/dL 0.4 L Est GFR (CKD-EPI 2020) (mL/min/1.73m2) 113.94 Glucose (74-106) mg/dL 115 H Calcium (8.5-10.1) mg/dL 9.1 Magnesium (1.8-2.4) mg/dL 1.8 Total Bilirubin (0.2-1.0) mg/dL 0.40 AST (15-37) U/L 26 ALT (14-59) U/L 40 Alkaline Phosphatase (46-116) U/L 61 Troponin I (<or=51) ng/L 8 Total Protein (6.4-8.2) g/dL 7.2 Albumin (3.4-5.0) g/dL 3.4 Quality:SDOH Health Related Social Needs: No Data to Display PFSH All Active Problems (Updated 11/18/24 @ 16:27 by Izaiah Miller MD) Nonadherence to medication (Acute) Influenza A (Acute) COPD (chronic obstructive pulmonary disease) (Chronic) Influenza A (Acute) Acute exacerbation of chronic obstructive pulmonary disease (Acute) Carpal tunnel syndrome on left (Acute 05/02/15) Chest pain (Acute) COPD (chronic obstructive pulmonary disease) (Chronic) Current smoker (Acute) Respiratory failure with hypoxia (Acute) Medical History (Updated 11/18/24 @ 16:27 by Izaiah Miller MD) Arthropathy Polycythemia Bladder prolapse Anxiety Depression Fibrocystic breast disease Osteopenia Peripheral vascular disease mild claudication Shoulder pain Carpal tunnel syndrome Low back pain syndrome Fibromyalgia URI (upper respiratory infection) Anemia Plantar fasciitis Neuropathic arthritis PTSD (post-traumatic stress disorder) Dysuria Knee joint pain Degenerative joint disease Hyperlipidemia Tobacco abuse Asthma Gastroesophageal reflux disease Chronic obstructive lung disease Surgical History (Updated 01/05/24 @ 10:29 by Belen Hemphill) Cataract History of endarterectomy left iliofemoral endarterectomy w/patch angioplasty,left SFA and profunda endarterectomy, left external iliac stent placement 09/18/23. Hx of thrombosis of lower extremity (2012) Thrombectomy with stent placement and repeat thrombectomy 2020. Open Carpal Tunnel release (07/28/15) LEFT WRIST/ Excision, Distal Clavicle (12/09/12) LEFT Family History (Updated 01/05/24 @ 10:27 by Belen Hemphill) Mother Uterine cancer Emphysema, unspecified Father Lung cancer Sister Lung cancer Emphysema, unspecified Paternal Grandfather Cancer Social History (Updated 01/05/24 @ 10:28 by Belen Hemphill) Smoking/Tobacco Use Status: Current every day Tobacco Type: cigarettes Smoking packs per day: 0.25 Smoking cigarettes per day: 5.0 Years smoked: 45 Smoking pack-years: 11.25 Tobacco: How many years used: 45 Smoking risk assessment performed?: Yes Alcohol Intake: never Drug use: Occasionally Substance use type: marijuana Details: Marijuana every couple of nights. Do you feel safe at home: Yes Do you feel safe in your relationship?: Yes
--- NOTE | 2024-11-18 15:43 | SMOKENOTE ---
Smoking Cessation Note: ASK Current tobacco use type and amount: Cigarettes. 1/2 pack a day. Used to be 1 pk/day until recently. Years of use: 45 Pack years: 45 ADVISE Pt advised to quit smoking as soon as able and ready. Pt is agreeable and voices that she is ready to quit now. RT offered to help pt get set up with [facility] Qu[employer] program. Pt agreed and her online account was created, first shipment of NRT has been ordered for her and will be shipped to her house. ASSESS Stage of readiness (choose one) [ ] Precontemplative (Not ready) [ ] Contemplative (Thinking about making a change) [ X ] Preparation (Ready to set a quit or take action immediately) [ ] Action Stage (New behaviour established) ASSIST Receiving NRT? [ X ] Yes [ ] Refused [ ] Contraindicated Smoking cessation packet [ ] Given [ ] Refused ARRANGE (choose one) [ X ] Referral made to [facility] [ ] Referral information/registration left for patient [ ] Referral refused Comments:
[2024-11-18 16:03] LABS: BE (Venous) 17 mmol/L (-2-3); HCO3 (Venous) 42 mmol/L (23-28); O2 Sat (Venous) 94 %; TCO2 (Venous) 39 mmol/L (24-29); pH (Venous) 7.38 (7.31-7.41); pO2 (Venous) 67 mmHg
[2024-11-18 16:05] LABS: pCO2 (Venous) 71 mmHg (41-51)
[2024-11-18] MEDS: Nicotine 14 MG/24 HR PATCH TD (16:26)
== END 2024-11-18 16:48 | disposition home or self-care (01) ==
PROVIDERS: Emergency Provider Student in an Organized Health Care Education/Training Program; PCP Nurse Practitioner Family
DX: J44.9 Chronic obstructive pulmonary disease, unspecified (principal); J10.1 Influenza due to other identified influenza virus with other respiratory manifestations; I10 Essential (primary) hypertension; E78.5 Hyperlipidemia, unspecified; Z86.718 Personal history of other venous thrombosis and embolism; Z79.01 Long term (current) use of anticoagulants; Z91.141 Patient's other noncompliance with medication regimen due to financial hardship; F17.210 Nicotine dependence, cigarettes, uncomplicated
CPT/HCPCS: 80053; 82805; 93005; 94640; 96360; 96361; 99285; 99407; 71046; 83735; 84484; 85025; 93010; 99284; J7620

== ENCOUNTER 2024-11-26 19:33 | Outpatient (REF) | payer MEDICARE, SELFPAY ==
--- NOTE | 2024-11-26 10:15 | PAPFT_PTH ---
PATIENT: Ely Casanova [id number] AGE/SX: 59/F ROOM: RE11/26/[address]: Lelo Bowman : 1965 BED: DIS: 11/26/2024 SPEC #: [id number] RECD: 11/29/24 13:11 STATUS: KEVIN REEilsa #: [id number] VA: 11/26/24 10:[address]: Lelo Bowman DEPT: [facility] Cytology RECD BY: Kandis Pugh Tissues: 1 - CX/ENDOCX FOR PAP SMEARS Procedures: PAP THIN PREP/UVM Screening HPV DNA PROBE Comments: [id number] (HPV 16 & 18/45)
== END 2024-11-26 19:34 | disposition home or self-care (01) ==
LOC: NCHCN 19:33
PROVIDERS: PCP Nurse Practitioner Family; Visit Provider Nurse Practitioner Family
DX: Z11.51 Encounter for screening for human papillomavirus (HPV) (principal); Z01.419 Encounter for gynecological examination (general) (routine) without abnormal findings
CPT/HCPCS: 88142; 87624

== ENCOUNTER 2024-12-07 02:30 | Outpatient (CLI) | payer SELFPAY ==
--- NOTE | 2024-12-07 | DI.MAMMO_ITS ---
Exam(s) MAMMO SCREENING EXAM: MAMMO SCREENING CLINICAL HISTORY: Z12.31 Screening TECHNIQUE: Bilateral full field digital CC and MLO mammographic images were obtained with 3D tomosyn thesis and utilizing computer aided detection (CAD). COMPARISON: Available for comparison. FINDINGS: Masses/Architectural Distortion: None seen. Microcalcifications: No suspicious pleomorphic-type are seen. Skin Thickening/Nipple Retraction: None. IMPRESSION: 1. No significant interval change with no specific features of malignancy noted. 2. Unless there is more urgent need, screening mammography is recommended, as per [place] [employer] guidelines. BI-RADS Category 1 - Negative Breast Density - Category B - Scattered areas of fibroglandular density Breast density category C or D implies that the patient has dense breast tissue. Dense breast tissue is very common and is not abnormal but dense breast tissue can make it harder to find cancer on a ma mmogram. Also, dense breast tissue may increase their breast cancer risk. This information about the result of the mammogram report was provided to the patient to raise their awareness. Use this report when you speak with the patient about their risks for breast cancer, which includes their family hist ory. At that time, you may recommend for more screening tests (Ultrasound or MRI) as they might be us eful based on their risk. A negative radiographic report should not delay biopsy if a dominant or clinically suspicious mass is present. Up to ten percent of cancers are not identified on mammography. A negative report may reinforce clinical impression. Adenosis and dense breasts may obscure an underlying neoplasm. False positive reports average 6 to 10%. Patient will receive a letter notifying them of these results.
== END 2024-12-07 02:50 ==
PROVIDERS: PCP Nurse Practitioner Family; Visit Provider Nurse Practitioner Family
DX: Z12.31 Encounter for screening mammogram for malignant neoplasm of breast (principal); R92.323 Mammographic fibroglandular density, bilateral breasts
CPT/HCPCS: 77063; 77067

== ENCOUNTER 2024-12-22 17:14 | Inpatient (IN) | payer MEDICARE, SELFPAY ==
[2024-12-22] VITALS (53 sets, daily range): BP systolic 114–186; BP diastolic 58–108; PULSE 85–105; RESP 9–33; TEMP 35.5–36.2; O2SAT 68–100
--- NOTE | 2024-12-22 17:15 | DI.RAD_ITS ---
Exam(s) XR CHEST 2V PA LATERAL EXAM: XR CHEST 2V PA LATERAL CLINICAL HISTORY: Hypoxia, cough. TECHNIQUE: 2D digital imaging was performed. COMPARISON: CR XR CHEST 2V PA LATERAL from 11/18/2024 FINDINGS: 2 views: Heart size is normal. The mediastinum is not widened. Bilateral hyperinflation is again noted but there are no confluent infiltrates nor pleural effusions. No pulmonary edema. No pneumothorax. No obvious acute fractures. IMPRESSION: COPD hyperinflation but no acute pulmonary findings. Please note that thoracic spine CT scan perform ed today revealed small lung nodules in the partially included lung rodriguez. Recommend follow-up ches t CT scan. Discussed with ER physician. DATA REPOSITORY: RADIATION DOSE DELIVERED:
--- NOTE | 2024-12-22 17:15 | RT.EKG_ITS ---
APPROVED REPORT Exam: Resting ECG Reason for Exam: Possible Stroke Patient Location: E HR:95 bpm ECG Measurements Heart Rate 95 AXIS MT 145 P 83 QRSd 98 QRS 82 QT 341 T 79 QTc 429 Conclusion Sinus rhythm, rate 95 No interval abnormalities Biatrial enlargement No STEMI No significant changes from priors
--- NOTE | 2024-12-22 17:23 | DI.CT_ITS ---
Exam(s) CT BRAIN NECK CTA EXAM: CT BRAIN NECK CTA CLINICAL HISTORY: CVA workup, balance issues, slurred speech. TECHNIQUE: Imaging Protocol: Axial CT angiography was performed with multi-slice acquisition and mu lti-planar and/or 3D reconstructions. CONTRAST MATERIAL: Intravenous: Omnipaque 350 Contrast volume:structured data in ml COMPARISON: CT HEAD WITHOUT CONTRAST from 09/04/2008 FINDINGS: CTA Neck W: Aortic arch anatomy: There is independent origin of the left vertebral artery off of the aortic arch. The right vertebral artery arises in conventional fashion off of the right subclavian artery. Ther e is a moderate stenosis in the right subclavian artery proximal to the vertebral artery takeoff poin t. There is no stenosis at the exact origin point of the right vertebral artery off of the right sub clavian artery. There is no significant stenosis at the origin of the great vessels off of the aorti c arch. Anterior circulation: Both common carotid arteries ascend with normal luminal diameters. There is partially calcified plaque at the level both carotid bulbs and proximal internal carotid art eries. Approximately 30 percent stenosis bilaterally. No critical stenosis. The internal carotid a rteries are patent bilaterally in the upper neck and skull base-carotid canals. Posterior circulation: Vertebral artery origins are as described above. Both vertebral arteries exhibit normal luminal diameters within the foramen transversarium. No evidence of significant stenosis, intraluminal thrombus, nor dissection evident within the vertebr al arteries in the neck. Both vertebral arteries contribute to the formation of the basilar artery at the skull base. CTA Brain W: Anterior circulation: Both internal carotid arteries are patent in the skull base-carotid canals as well as within the cave rnous sinuses. The supraclinoid aspects of the ICAs are patent. Both A1 segments are patent as are the anterior cer ebral arteries and there is no evidence of aneurysm at the level of the anterior communicating artery . Both middle cerebral arteries are patent with no evidence of significant stenosis nor intraluminal th rombus. There also no aneurysms of these vessels. Posterior circulation: The basilar artery ascends in the midline. Distally it gives off patent bilateral superior cerebella r arteries. Above this level the basilar artery terminates as patent bilateral posterior cerebral arteries. There is a posterior communicating artery noted on the left side of the lootur-th-Himguz. There is no evidence of aneurysm at the tip of the basilar artery nor elsewhere in the ihicnz-we-Dhrb is. CT BRAIN: There is no evidence of intracranial hemorrhage, mass effect, or shift of midline structures. There are no extra-axial fluid collections. Ventricles are not enlarged or shifted. There are no ring enh ancing lesions in the brain and no abnormal meningeal enhancement. IMPRESSION: 1. There is calcified plaque at the level both carotid bifurcations and proximal ICAs in the neck. N o critical stenosis at these levels. Amount of stenosis is estimated approximately 30 percent bilate rally. 2. Patent vertebral arteries. No significant stenosis nor dissection. The left vertebral artery is noted to originate as a separate vessel off the aortic arch in this patient (instead of originating o ff the left subclavian artery in conventional fashion). 3. Patent intracranial arteries. No aneurysms. No obvious vascular malformations. 4. No ring enhancing lesions in the brain. No obvious CVA. Report called by myself to ER physician 12/22/2024 at 6:33 p.m. RADIATION DOSE DELIVERED: 1,992.5mGy.cm Total DLP DATA REPOSITORY: All CT scans at this facility are submitted to the National Radiology Data Registry (NRDR) Dose Index Registry (DIR) with the [employer] ([employer]). RADIATION OPTIMIZATION: All CT scans at this facility use at least one of these dose optimization te chniques: automated exposure control; mA and/or kV adjustment per patient size (includes targeted exa ms where dose is matched to clinical indication); or iterative reconstruction.
--- NOTE | 2024-12-22 17:45 | DI.CT_ITS ---
Exam(s) CT THORACIC LUMBAR SPINE WO EXAM: CT THORACIC LUMBAR SPINE WO CLINICAL HISTORY: Fall, tailbone/low back pain. TECHNIQUE: Imaging Protocol: Axial computed tomography images with coronal and sagittal reformatted images were created and reviewed. CONTRAST MATERIAL: Intravenous: None COMPARISON: No exams were available for comparison FINDINGS: THORACIC SPINAL COLUMN: No evidence of fracture, listhesis, nor facet joint malalignment. There is n o compromise of the central spinal canal. LUMBOSACRAL SPINAL COLUMN: Lumbar vertebrae are intact with no evidence of acute fracture or listhesi s nor significant disc space narrowing. Facet joints appear unremarkable. No evidence of obvious sacral fracture. Sacroiliac joints appear unremarkable. Incidentally noted are ???kissing??? endovascular stents in both common iliac arteries. The abdomina l aorta is calcified and there is an infrarenal fusiform abdominal aortic aneurysm which exhibits max imum diameter of 2.3 cm. Nevertheless, the aorta above this level measures 1.8 cm. Also incidentally noted is a pleural based nodular density in the left lung base posterior basal segm ent, incidentally noted on the coronal reconstructed images. This nodular density measures approxima tely 9 x 7 mm. Also partially calcified nodular density noted in the posterior segment of the left u pper lobe. Another 5 mm slightly spiculated nodule is noted in the medial aspect of the left lower l obe adjacent to the left side of the T-11 vertebral body. IMPRESSION: No evidence of acute fractures of the thoracic and lumbosacral spinal columns nor evidence of obvious sacral fracture. Vascular findings as above. Incidental nodular densities in the partially included lung rodriguez. Consider follow-up chest CT scan . Report called by myself to ER physician 12/22/2024 at 6:18 p.m. RADIATION DOSE DELIVERED: 570.52mGy.cm Total DLP DATA REPOSITORY: All CT scans at this facility are submitted to the National Radiology Data Registry (NRDR) Dose Index Registry (DIR) with the [employer] (ACR). RADIATION OPTIMIZATION: All CT scans at this facility use at least one of these dose optimization te chniques: automated exposure control; mA and/or kV adjustment per patient size (includes targeted exa ms where dose is matched to clinical indication); or iterative reconstruction.
[2024-12-22 17:46] LABS: Abs Immature Grans 0.05 10^3/uL (0.0-0.06); Absolute Basophil Count 0.07 10^3/uL (0.0-0.2); Absolute Lymphocyte Count 1.36 10^3/uL (1.2-3.4); Absolute Monocyte Count 1.78 10^3/uL (0.1-0.8); Absolute Neutrophil Count 9.78 10^3/uL (1.2-6.7); Basophils % 0.5 %; Immature Grans % 0.4 %; Lymphocytes % 10.2 %; MCH 36.4 pg (27.0-33.0); MCHC 31.6 % (32.0-36.0); MCV 115 fL (80-95); MPV 9.9 fL (8.0-11.0); Monocytes % 13.4 %; Neutrophils % 73.5 %; Platelet Count 258 10^3/uL (130-400); RDW 11.9 % (11.7-14.6); RDW-SD 50.6 fL
[2024-12-22] MEDS: Normal Saline - Diluent 50 ML VIAL IJ ×2 (17:49→21:15)
[2024-12-22] MEDS: Omnipaque 350 MG/ML 100 ML BTL IJ ×2 (17:50→21:14)
--- NOTE | 2024-12-22 17:55 | W.ED.GENAD ---
Discharge Plan Disposition Patient Disposition: Admit to [facility] Condition: Serious Discharge Details Chief Complaint: CVA/TIA Clinical Impression: Respiratory failure with hypoxia, COPD (chronic obstructive pulmonary disease), Generalized weakness Primary Care Provider: Lelo Bowman ED Provider: Kristy Mora Home Meds and New Rx's Prescriptions: No Action aspirin [Adult Low Dose Aspirin] 81 mg tablet,delayed release (DR/EC) 81 mg PO DAILY montelukast [Singulair] 10 mg tablet 10 mg PO DAILY Qty: 90 4RF ipratropium-albuterol 0.5 mg-3 mg(2.5 mg base)/3 mL solution for nebulization 3 ml inhalation Q4H PRN (Reason: wheezing) Qty: 180 6RF varenicline tartrate [Chantix Starting Month Box] 0.5 mg (11)- 1 mg (42) tablets,dose pack See Rx Instructions PO PER PKG DIR Qty: 53 0RF Rx Instructions: PO PER PKG DIR azithromycin 250 mg tablet 250 mg PO .COMPLEX Qty: 90 4RF Rx Instructions: 250 mg orally; Airsupra 90-80 mcg/actuation HFA aerosol inhaler 2 inh inhalation ONCE Qty: 10.7 0RF Rx Instructions: as a single dose; may repeat up to 6 doses per day (12 inhalations) loratadine 10 MG tablet,disintegrating 10 mg PO DAILY simvastatin 10 MG tablet 10 mg PO DAILY calcium citrate 250 MG tablet 500 mg PO DAILY cholecalciferol (vitamin D3) [Vitamin D3] 2,000 UNIT tablet 2,000 unit PO DAILY albuterol sulfate 1.25 mg/3 mL solution for nebulization 2.5 mg INHALATION .Q4-6H PRN bupropion HCl 150 mg tablet sustained-release 12 hr 150 mg PO DAILY lisinopril 10 mg tablet 10 mg PO DAILY loratadine [Allergy Relief (loratadine)] 10 mg tablet 10 mg PO DAILY magnesium 250 mg tablet 250 mg PO DAILY polyethylene glycol 3350 [Miralax] 17 gram/dose powder 17 g PO DAILY (DME) Oxygen Tank See Rx Instructions .Route Rx Instructions: As directed pantoprazole 20 mg tablet,delayed release (DR/EC) 20 mg PO DAILY prednisone 20 mg tablet 20 mg PO DAILY simvastatin 10 mg tablet 10 mg PO QHS valacyclovir [Valtrex] 500 mg tablet 500 mg PO Q12H PRN Xarelto 2.5 mg tablet 2.5 mg PO BID Breztri Aerosphere 160-9-4.8 mcg/actuation HFA aerosol inhaler See Rx Instructions .ROUTE .COMPLEX Qty: 10.7 12RF Dose Instruction: INHALE 2 PUFFS BY MOUTH TWICE DAILY FOR COPD Patient Comments: per H&P not started yet, awaiting pharmacy. Rx Instructions: INHALE 2 PUFFS BY MOUTH TWICE DAILY FOR COPD gabapentin 400 mg capsule 400 mg PO QPM Patient Comments: TAKE 1 CAPSULE BY MOUTH EVERY EVENING. polyethylene glycol 3350 17 gram powder in packet 255 g PO DAILY PRN Rx Instructions: Mix 255 gm in 64 oz of gatorade or juice. Drink as directed clopidogrel 75 mg tablet 75 mg PO HS Patient Comments: TAKE 1 TABLET BY MOUTH DAILY ferrous sulfate 325 mg (65 mg iron) tablet 325 mg PO QDAY Patient Comments: TAKE 1 TABLET BY MOUTH TWICE DAILY. omeprazole 20 mg capsule,delayed release(DR/EC) 20 mg PO DAILY Patient Comments: TAKE 1 CAPSULE BY MOUTH EVERY DAY albuterol sulfate 90 mcg/actuation HFA aerosol inhaler 2 puff INHALATION Q4H PRN PRN Patient Comments: INHALE 2 PUFFS BY MOUTH EVERY 4 HOURS IF NEEDED hydroxyzine pamoate 25 mg capsule 25 mg PO TID PRN PRN Patient Comments: TK 1 C PO TID PRF ITCHING Xarelto 2.5 mg tablet 2.5 mg PO BID Patient Comments: TAKE 1 TABLET BY MOUTH TWICE DAILY acetaminophen 500 mg tablet 1,000 mg PO Q6H PRN (Reason: pain) Xarelto 10 mg tablet 20 mg PO DAILY Patient Comments: [place] [facility] [facility] pantoprazole 20 mg tablet,delayed release (DR/EC) 20 mg PO DAILY Patient Comments: TAKE 1 TABLET BY MOUTH ONCE DAILY FOR REFLUX nicotine 14 mg/24 hr patch 24 hour 1 patch transdermal DAILY magnesium oxide 250 mg magnesium tablet 250 mg PO DAILY diclofenac sodium 3 % gel 0.1 g topical BID Rx Instructions: per cm2 lesion size; completely cover lesion amoxicillin-pot clavulanate 875-125 mg tablet 1 tab PO BID Qty: 14 0RF HPI General Mode of arrival: wheelchair. Date/Time Provider Initiated Documentation: 12/22/24 17:16. Limitations to Documentation: no limitations. Information obtained by: patient, family and old records reviewed. HPI Narrative: HPI: This is a 59-year-old female patient with a past medical history significant for COPD on 2 L home O2, presenting for evaluation of speech changes, balance issues, and generalized weakness. History is obtained from the patient and her daughter who is at bedside. Yesterday the patient woke up and was unable to get up from bed on her own, before. She felt excessively weak throughout the day, and was noted to have poor balance especially when attempting to transfer out of a car. Family members noted that her speech seems more garbled and slurred to them. When attempting to clarify last known well, the family mentions that she has not quite been herself since the weekend, states that she did take a fall in the last few days and has been complaining of tailbone pain. She has had a nonproductive cough, denies fever. No personal history of stroke Exam: Gen: awake and alert, in no apparent distress. Appears well nourished. HEENT: PERRL, EOMs full and without nystagmus. External ears and nose normal, mucous membranes moist. Neck: Supple, full range of motion, no observable masses Lungs: Increased work of breathing with hypoxia appreciated requiring increasing supplemental oxygen. Lung sounds slightly diminished but without overt wheezes, rhonchi, rales CV: Heart with regular rate and rhythm, no murmurs auscultated. Strong and symmetrical radial pulses. Abdomen: Soft, nondistended, non-tended to palpation. No rigidity, rebound tenderness, or guarding. MSK: No joint swelling, no redness. Full ROM without limitation, no external traumatic findings. coxxyx/low back pain Skin: No rashes or lesions to visualized skin. Normal color, warm, and dry. Neuro: Cranial nerves II-XII intact and symmetrical bilaterally. I note minimal dysphasia or word finding issues 5/5 strength in all muscle groups x4 extremities. No sensory deficits. Unsteady gait with transfer from wheelchair to bed. Accurate targeting bilaterally with finger-nose testing. Psych: Appropriate for situation. MDM: This is a 59-year-old female patient presenting for evaluation of generalized weakness, balance issues, speech changes. Differential includes but is not limited to stroke, intracranial hemorrhage, certainly considered infection including pneumonia, URI, UTI, metabolic electrolyte derangements, kidney injury, respiratory failure, reactive airway disease exacerbation. Unfortunately, this patient is out of the window for tPA or thrombectomy, but we will still proceed with CTA of the brain and neck to evaluate for intracranial abnormalities. I will obtain an EKG as well as laboratory studies to include CBC, CMP, magnesium, troponin, INR, Fluvid, and urinalysis. Obtain chest x-ray, as well as a CT of the T and L-spine given her fall and deconditioning, as she is at risk for compression fractures. ED Course: I reviewed the patient's EKG, which shows a sinus rhythm with a rate of 95, with no evidence of acute ischemia. I reviewed the patient's laboratory studies, she has a mild leukocytosis to 13, no anemia or thrombocytopenia. INR 1, VBG concerning with a pCO2 of 79, though this is well compensated and not significantly changed from priors, and she has no associated acidosis. Chemistry panel notable for an elevated carbon dioxide, baseline renal function, and no other significant electrolyte derangements or evidence of liver disease. Troponin was negative, as well as a viral swab. I reviewed the patient's imaging studies, CT chest shows obstructive lung disease changes but no evidence of pneumonia, CTA brain and neck without evidence of ischemia or stroke changes, vessel occlusion though there is some 30% stenosis at the carotid bifurcation, and the CT of the T and L-spine does not show any compression fractures or other injuries from her fall. The patient did have several desaturation events while on her nasal cannula, to 60%'s requiring initiation of high flow nasal cannula, 50 L and 55% to maintain appropriate saturations. In concern for hypoxic respiratory failure, acute on chronic, and given the patient's recent change in her cough pattern certainly considered acute bronchitis. For this reason and provide the patient with a duo nebulizer treatment, Solu-Medrol, ceftriaxone, and azithromycin. I reached out to the hospitalist to request a CT PE study, patient does take anticoagulation and has been compliant but in the absence of other inciting event for the patient's hypoxia this is reasonable to evaluate for breakthrough thrombus. Additionally, we initiated a conversation with the patient and her family regarding her end-stage COPD, and the patient is desiring to change her CODE STATUS to DNR/DNI. I reviewed the patient's CT of her chest, which does not show any pulmonary embolism but does note a opacity in the left base concerning for bronchiolitis versus aspiration. I shared these findings with the hospitalist and the patient was transferred to the ICU without incident. All further care per the inpatient team. Kristy Mora MD Related Data Home Medications ?Medication ?Instructions ?Recorded ?Confirmed calcium citrate 500 mg PO DAILY 05/02/15 12/22/24 cholecalciferol (vitamin D3) 50 2,000 unit PO DAILY 05/02/15 12/22/24 mcg (2,000 unit) tablet (Vitamin D3) loratadine 10 mg disintegrating 10 mg PO DAILY 05/02/15 12/22/24 tablet simvastatin 10 mg tablet 10 mg PO DAILY 05/02/15 12/22/24 albuterol sulfate 90 mcg/actuation 2 puff inhalation Q4H PRN PRN 12/11/20 12/22/24 aerosol inhaler clopidogrel 75 mg tablet 75 mg PO HS 12/11/20 12/22/24 ferrous sulfate 325 mg (65 mg 325 mg PO QDAY 12/11/20 12/22/24 iron) tablet gabapentin 400 mg capsule 400 mg PO QPM 12/11/20 12/22/24 hydroxyzine pamoate 25 mg capsule 25 mg PO TID PRN PRN 12/11/20 12/22/24 omeprazole 20 mg capsule,delayed 20 mg PO DAILY 12/11/20 12/22/24 release polyethylene glycol 3350 17 gram 255 g PO DAILY PRN 12/11/20 12/22/24 oral powder packet rivaroxaban 2.5 mg tablet (Xarelto) 2.5 mg PO BID 12/11/20 12/22/24 acetaminophen 500 mg tablet 1,000 mg PO Q6H PRN pain 07/03/22 12/22/24 varenicline tartrate 0.5 mg (11)-1 See Rx Instructions PO PER PKG DIR 10/18/22 12/22/24 mg (42) tablets in a dose pack #53 dose pk (Chantix Starting Month Box) diclofenac sodium 3 % topical gel 0.1 g topical BID 12/03/23 12/22/24 magnesium oxide 250 mg PO DAILY 12/03/23 12/22/24 nicotine 14 mg/24 hr daily 1 patch transdermal DAILY 12/03/23 12/22/24 transdermal patch pantoprazole 20 mg tablet,delayed 20 mg PO DAILY 12/03/23 12/22/24 release rivaroxaban 10 mg tablet (Xarelto) 20 mg PO DAILY 12/03/23 12/22/24 Oxygen 01/05/24 11/18/24 albuterol sulfate 1.25 mg/3 mL 2.5 mg inhalation .Q4-6H PRN 01/05/24 12/22/24 solution for nebulization bupropion HCl 150 mg tablet,12 hr 150 mg PO DAILY 01/05/24 12/22/24 sustained-release lisinopril 10 mg tablet 10 mg PO DAILY 01/05/24 12/22/24 loratadine 10 mg tablet (Allergy 10 mg PO DAILY 01/05/24 12/22/24 Relief (loratadine)) magnesium 250 mg tablet 250 mg PO DAILY 01/05/24 12/22/24 pantoprazole 20 mg tablet,delayed 20 mg PO DAILY 01/05/24 12/22/24 release polyethylene glycol 3350 17 17 g PO DAILY 01/05/24 12/22/24 gram/dose oral powder (Miralax) prednisone 20 mg tablet 20 mg PO DAILY 01/05/24 12/22/24 rivaroxaban 2.5 mg tablet (Xarelto) 2.5 mg PO BID 01/05/24 12/22/24 simvastatin 10 mg tablet 10 mg PO QHS 01/05/24 12/22/24 valacyclovir 500 mg tablet 500 mg PO Q12H PRN 01/05/24 12/22/24 (Valtrex) albuterol 90 mcg-budesonide 80 2 inh inhalation ONCE #10.7 grams 02/04/24 12/22/24 mcg/actuation HFA aerosol inhaler (Airsupra) azithromycin 250 mg tablet 250 mg PO .COMPLEX #90 tabs 02/04/24 12/22/24 budesonide 160 mcg-glycopyr 9 See Rx Instructions .Route 04/10/24 12/22/24 mcg-formot 4.8 mcg/actuation HFA .COMPLEX #10.7 grams inhaler (Breztri Aerosphere) aspirin 81 mg tablet,delayed 81 mg PO DAILY 05/25/24 12/22/24 release (Adult Low Dose Aspirin) ipratropium 0.5 mg-albuterol 3 mg 3 ml inhalation Q4H PRN wheezing 05/25/24 12/22/24 (2.5 mg base)/3 mL nebulization #180 mL soln montelukast 10 mg tablet 10 mg PO DAILY #90 tabs 05/25/24 12/22/24 (Singulair) amoxicillin 875 mg-potassium 1 tab PO BID #14 tabs 11/09/24 12/22/24 clavulanate 125 mg tablet Previous Rx's ?Medication ?Instructions ?Recorded varenicline tartrate 0.5 mg (11)-1 See Rx Instructions PO PER PKG DIR 10/18/22 mg (42) tablets in a dose pack #53 dose pk (Chantix Starting Month Box) albuterol 90 mcg-budesonide 80 2 inh inhalation ONCE #10.7 grams 02/04/24 mcg/actuation HFA aerosol inhaler (Airsupra) azithromycin 250 mg tablet 250 mg PO .COMPLEX #90 tabs 02/04/24 budesonide 160 mcg-glycopyr 9 See Rx Instructions .Route 04/10/24 mcg-formot 4.8 mcg/actuation HFA .COMPLEX #10.7 grams inhaler ([employer].laphere) ipratropium 0.5 mg-albuterol 3 mg 3 ml inhalation Q4H PRN wheezing 05/25/24 (2.5 mg base)/3 mL nebulization #180 mL soln montelukast 10 mg tablet 10 mg PO DAILY #90 tabs 05/25/24 (Singulair) amoxicillin 875 mg-potassium 1 tab PO BID #14 tabs 11/09/24 clavulanate 125 mg tablet Allergies Allergy/AdvReac Type Severity Reaction Status Date / Time umeclidinium (From Incruse Allergy Severe chest Verified 12/22/24 21:58 Ellipta) tightness bupropion (From Wellbutrin) AdvReac Intermediate Nausea Verified 12/22/24 21:58 tramadol HCl (From Ultram) AdvReac Intermediate Nausea Verified 12/22/24 21:58 General Stated Complaint: CVA/TIA CAMPOS: 2 Course Vital Signs Vital signs: Vital Signs Temperature 35.5 C L 12/22/24 17:16 Pulse 105 H 12/22/24 17:16 Respiratory Rate 22 12/22/24 17:16 Blood Pressure 160/81 H 12/22/24 17:16 Pulse Oximetry 68 L 12/22/24 17:16 Temperature 36.2 C L 12/22/24 17:27 Temperature Source Tympanic 12/22/24 17:27 Pulse 105 H 12/22/24 17:16 Respiratory Rate 22 12/22/24 17:16 Blood Pressure 160/81 H 12/22/24 17:16 Pulse Oximetry 98 12/22/24 17:27 Oxygen Delivery Method Non-Rebreather 12/22/24 17:27 Oxygen Flow Rate 10 12/22/24 17:27 Medical Decision Making Quality:SDOH Health Related Social Needs: No Data to Display Critical Care Time Critical Care Time Critical Care Time: Yes Total Critical Care Time: 45 Attestation: Upon my evaluation, this patient had a high probability of imminent or life-threatening deterioration due to acute on chronic hypoxic respiratory failure, which required my direct attention, intervention, and personal management. I have personally provided 45 minutes of critical care time exclusive of time spent on separately billable procedures. Time includes review of laboratory data, radiology results, discussion with consultants, and monitoring for potential decompensation. Interventions were performed as documented above. Kristy Mora MD [facility] All Active Problems (Updated 12/22/24 @ 21:12 by Estevan Cortes) Macrocytosis without anemia (Chronic) Hypomagnesemia (Acute) Acute on chronic respiratory failure with hypoxia and hypercapnia (Acute) Generalized weakness (Acute) Carpal tunnel syndrome on left (Acute 05/02/15) Chest pain (Acute) COPD (chronic obstructive pulmonary disease) (Chronic) Current smoker (Acute) Respiratory failure with hypoxia (Acute) Medical History Arthropathy Polycythemia Bladder prolapse Anxiety Depression Fibrocystic breast disease Osteopenia Peripheral vascular disease mild claudication Shoulder pain Carpal tunnel syndrome Low back pain syndrome Fibromyalgia URI (upper respiratory infection) Anemia Plantar fasciitis Neuropathic arthritis PTSD (post-traumatic stress disorder) Dysuria Knee joint pain Degenerative joint disease Hyperlipidemia Tobacco abuse Asthma Gastroesophageal reflux disease Chronic obstructive lung disease Surgical History Cataract History of endarterectomy left iliofemoral endarterectomy w/patch angioplasty,left SFA and profunda endarterectomy, left external iliac stent placement 09/18/23. Hx of thrombosis of lower extremity (2012) Thrombectomy with stent placement RLE and repeat thrombectomy 2020. Open Carpal Tunnel release (07/28/15) LEFT WRIST/ Excision, Distal Clavicle (12/09/12) LEFT Family History Mother Uterine cancer Emphysema, unspecified Father Lung cancer Sister Lung cancer Emphysema, unspecified Paternal Grandfather Cancer Social History Smoking/Tobacco Use Status: Former Tobacco Use Quit Date: 10/30/24 Tobacco: How many years used: 45 Smoking risk assessment performed?: Yes Alcohol Intake: never Drug use: Occasionally Substance use type: marijuana Details: Marijuana every couple of nights. Do you feel safe at home: Yes Do you feel safe in your relationship?: Yes
[2024-12-22 17:57] LABS: Absolute Eosinophil Count 0.27 10^3/uL (0.0-0.7)
[2024-12-22 18:02] LABS: Diff Comment Agrees w/ Instrument; Macrocytosis 2+
[2024-12-22 18:03] LABS: ALT 22 U/L (14-59); AST 24 U/L (15-37); Albumin 3.6 g/dL (3.4-5.0); Alkaline Phosphatase 68 U/L (46-116); BUN 15 mg/dL (7-18); Bilirubin, Total 0.3 mg/dL (0.2-1.0); CREATININE 0.4 mg/dL (0.55-1.02); Calcium 9.5 mg/dL (8.5-10.1); Chloride 95 mmol/L (98-107); Estimated GFR 113.94 (mL/min/1.73m2); Glucose 100 mg/dL (74-106); Magnesium 1.7 mg/dL (1.8-2.4); Potassium 3.9 mmol/L (3.5-5.1); Prothrombin Time 10.2 sec (9.1-11.1); Sodium 140 mmol/L (136-145); Total Protein 7.9 g/dL (6.4-8.2); Troponin I 11 ng/L (<or=51)
[2024-12-22 18:04] LABS: Anion Gap -0.00001 mmol/L (3-11); CO2 > 45.0 mmol/L (21.0-32.0)
[2024-12-22 18:59] LABS: BE (Venous) 23 mmol/L (-2-3); HCO3 (Venous) 48 mmol/L (23-28); O2 Sat (Venous) 96 %; TCO2 (Venous) 44 mmol/L (24-29); pH (Venous) 7.39 (7.31-7.41); pO2 (Venous) 75 mmHg
[2024-12-22 19:03] LABS: pCO2 (Venous) 79 mmHg (41-51)
[2024-12-22 19:19] LABS: Troponin I 11 ng/L (<or=51)
[2024-12-22] MEDS: Albuterol/Ipratropium 3 ML UPD VIAL UPD ×2 (19:21→23:50)
[2024-12-22] MEDS: Ondansetron 4 MG/2 ML VIAL IVP (19:22)
[2024-12-22] MEDS: Normal Saline Flush 10 ML SYR IVP ×2 (19:22→23:03)
[2024-12-22] MEDS: methylPREDNISolone SUCC 125 MG VIAL IVP (20:04)
[2024-12-22] MEDS: cefTRIAXone 1 GM/50 ML BAG IVPB (20:06)
--- NOTE | 2024-12-22 20:11 | NUR.NOTE ---
RT at bedside Nursing Note:
--- NOTE | 2024-12-22 20:12 | NUR.NOTE ---
PT has 2 episodes of her SPO2% going down to the 70s. ED MD and RT notified. Nursing Note:
--- NOTE | 2024-12-22 20:12 | NUR.NOTE ---
PT on high flow O2 by RT Nursing Note:
--- NOTE | 2024-12-22 20:18 | RESPIRATORY ---
PT WAS PLACED ON HIGH FLOW NASAL CANNULA WITH SETTINGS OF 40LPM AND 35% FIO2. PT TOLERATES THIS WITH A SPO2 OF 95-98% NO DISTRESS NOTED.
--- NOTE | 2024-12-22 20:24 | NUR.NOTE ---
PTs SPO2% decreased to 65% RT and MD at bedside. Nursing Note:
[2024-12-22 20:43] LABS: COVID-19 PCR Negative (Negative); Influenza A PCR Negative (Negative); Influenza B PCR Negative (Negative); RSV PCR Negative (Negative)
[2024-12-22] MEDS: AZITHROMYCIN 500 MG in Normal Saline 250 ML 250 MG IVPB (20:43)
--- NOTE | 2024-12-22 20:45 | RESPIRATORY ---
PT desat to high 60's. thought is of mucous plugging. we was placed on a little more flow to 50lpm and fio2 was adjusted to 55% where she was witnessed to be 90-92 while awake and when she fell asleep was 86-88% this is acceptable considering the late stage of her lung disease. pt appears comfortable in no distress
[2024-12-22 20:47] LABS: Source Nasopharynx
--- NOTE | 2024-12-22 20:55 | W.PM.HP.N ---
Date of service: 12/22/24 Time of Service: 20:56 Assessment and Plan Assessment and plan (1) Acute on chronic respiratory failure with hypoxia and hypercapnia: Start date: 12/22/24 Status: Acute Assessment and plan: This is a 59-year-old lady with end-stage COPD/emphysema who continues to smoke tobacco after this hospitalization. 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 She was placed on IV antibiotic therapy with ceftriaxone and azithromycin IV, she will be placed on IV Solu-Medrol and frequent nebulizer treatments. O2 supplementation as needed avoiding BiPAP. Palliative care consult per family's request with consideration of hospice. Patient is a DNR/DNI. (2) COPD (chronic obstructive pulmonary disease): Status: Chronic Assessment and plan: CT of the chest revealed patchy infiltrates in the left base with emphysema but no PE. Patient is already on Xarelto and will be continued. She was initiated on IV antibiotic therapy with ceftriaxone and Celebrex. Because of complex Zofran and her hydroxyzine will be held. Continue aggressive inhaler therapy and O2 supplementation. (3) Tobacco abuse: Assessment and plan: Patient did smoke up to 2 months ago and is on a nicotine patch. She may be having increased plugging and her pneumonia infiltrate does not appear severe enough to cause her sudden onset of hypoxemia. There is no PE. Continue nicotine patch and no smoking. (4) Hypomagnesemia: Start date: 12/22/24 Status: Acute Assessment and plan: IV repletion and follow-up labs. (5) Macrocytosis without anemia: Status: Chronic Assessment and plan: TSH and iron levels are normal but check folate and B12 level. Patient denies any significant alcohol intake. This may be nutritional and if deficiencies should supplement. (6) Fibromyalgia: Assessment and plan: Chronic pain with history of PTSD. Continue outpatient medical therapy. Check urine drug screen patient's increased sedation recently not being prescribed chronic narcotics (with tramadol trialed recently per [facility]) or benzodiazepines but at risk for self treatment. She does live with her friend. (7) PTSD (post-traumatic stress disorder): Assessment and plan: Continue outpatient medical therapy and monitor with emotional support. (8) Gastroesophageal reflux disease: Assessment and plan: Continue PPI. (9) Hyperlipidemia: Assessment and plan: Continue statin. History of Present Illness History of Present Illness Chief Complaint: Increasing shortness of breath with decline over last 2 weeks. Narrative: This is a 59-year-old female patient who has severe pulmonary disease with chronic respiratory failure on home O2 use at about 2 L/min per nasal cannula. She recently has had increasing confusion, decreased intake and more difficulty breathing with worsening hypoxemia at home. She did have a fall without injury and imaging was negative. Also she had a CT of the head and neck which were negative for any acute central neurological event with her confusion most likely secondary to respiratory failure worsening. The patient stated she did quit smoking 2 months ago but her daughter in law states that she has been smoking up to this hospitalization. Patient also smokes THC but this has been less frequent. She does have chronic pain and PTSD. She was a full code but wishes to be a DNR/DNI at this time. Her family is also wanting to discuss patient care and possible hospice. In the ED patient was evaluated for hypoxemia and appeared to have increasing oxygen needs especially after nebulizer treatment with possible plugging. At rest her pulse oximeter was in the range of 86 to 90%. This most likely is her baseline. VBG did reveal hypercapnia which is chronic and she is fairly well compensated with her pH. Her TCO2 on her chemistries is markedly elevated. Chest x-ray did not reveal any acute infiltrates but emphysema and CT did reveal some left lower lobe infiltrates with possible pneumonia. She was negative for PE and is chronically on Xarelto. Patient will be admitted to the ICU with her high oxygen requirements on at least 50% O2 with high flow oxygen. Will try to avoid BiPAP. Palliative care consult was ordered as per family's request. Patient is now a DNR/DNI. Review of Systems Narrative: 13 point review of systems otherwise unrevealing or stable. Patient has been losing weight slowly. She has had decreased urine output and stool output with decreased eating and drinking. She is slightly less confused presently with no focal neurological complaints. PFSH All Active Problems (Updated 12/22/24 @ 21:12 by Estevan Cortes) Macrocytosis without anemia (Chronic) Hypomagnesemia (Acute) Acute on chronic respiratory failure with hypoxia and hypercapnia (Acute) Generalized weakness (Acute) Carpal tunnel syndrome on left (Acute 05/02/15) Chest pain (Acute) COPD (chronic obstructive pulmonary disease) (Chronic) Current smoker (Acute) Respiratory failure with hypoxia (Acute) Medical History Arthropathy Polycythemia Bladder prolapse Anxiety Depression Fibrocystic breast disease Osteopenia Peripheral vascular disease mild claudication Shoulder pain Carpal tunnel syndrome Low back pain syndrome Fibromyalgia URI (upper respiratory infection) Anemia Plantar fasciitis Neuropathic arthritis PTSD (post-traumatic stress disorder) Dysuria Knee joint pain Degenerative joint disease Hyperlipidemia Tobacco abuse Asthma Gastroesophageal reflux disease Chronic obstructive lung disease Surgical History Cataract History of endarterectomy left iliofemoral endarterectomy w/patch angioplasty,left SFA and profunda endarterectomy, left external iliac stent placement 09/18/23. Hx of thrombosis of lower extremity (2012) Thrombectomy with stent placement RLE and repeat thrombectomy 2020. Open Carpal Tunnel release (07/28/15) LEFT WRIST/ Excision, Distal Clavicle (12/09/12) LEFT Family History Mother Uterine cancer Emphysema, unspecified Father Lung cancer Sister Lung cancer Emphysema, unspecified Paternal Grandfather Cancer Social History Smoking/Tobacco Use Status: Former Tobacco Use Quit Date: 10/30/24 Tobacco: How many years used: 45 Smoking risk assessment performed?: Yes Alcohol Intake: never Drug use: Occasionally Substance use type: marijuana Details: Marijuana every couple of nights. Do you feel safe at home: Yes Do you feel safe in your relationship?: Yes Meds Allergies and Home Medications Allergies Allergy/AdvReac Type Severity Reaction Status Date / Time umeclidinium (From Incruse Allergy Severe chest Verified 12/22/24 21:58 Ellipta) tightness bupropion (From Wellbutrin) AdvReac Intermediate Nausea Verified 12/22/24 21:58 tramadol HCl (From Ultram) AdvReac Intermediate Nausea Verified 12/22/24 21:58 Home Medications ?Medication ?Instructions ?Recorded ?Confirmed ?Type calcium citrate 500 mg PO DAILY 05/02/15 12/22/24 History cholecalciferol (vitamin D3) 50 2,000 unit PO DAILY 05/02/15 12/22/24 History mcg (2,000 unit) tablet (Vitamin D3) albuterol sulfate 90 mcg/actuation 2 puff inhalation Q4H PRN PRN 12/11/20 12/22/24 History aerosol inhaler clopidogrel 75 mg tablet 75 mg PO HS 12/11/20 12/22/24 History ferrous sulfate 325 mg (65 mg 325 mg PO QDAY 12/11/20 12/22/24 History iron) tablet gabapentin 400 mg capsule 400 mg PO QPM 12/11/20 12/22/24 History hydroxyzine pamoate 25 mg capsule 25 mg PO TID PRN PRN 12/11/20 12/22/24 History polyethylene glycol 3350 17 gram 255 g PO DAILY PRN 12/11/20 12/22/24 History oral powder packet rivaroxaban 2.5 mg tablet (Xarelto) 2.5 mg PO BID 12/11/20 12/22/24 History acetaminophen 500 mg tablet 1,000 mg PO Q6H PRN pain 07/03/22 12/22/24 History varenicline tartrate 0.5 mg (11)-1 See Rx Instructions PO PER PKG DIR 10/18/22 12/22/24 Rx mg (42) tablets in a dose pack #53 dose pk (Chantix Starting Month Box) diclofenac sodium 3 % topical gel 0.1 g topical BID 12/03/23 12/22/24 History nicotine 14 mg/24 hr daily 1 patch transdermal DAILY 12/03/23 12/22/24 History transdermal patch rivaroxaban 10 mg tablet (Xarelto) 20 mg PO DAILY 12/03/23 12/22/24 History Oxygen 01/05/24 11/18/24 History albuterol sulfate 1.25 mg/3 mL 2.5 mg inhalation .Q4-6H PRN 01/05/24 12/22/24 History solution for nebulization bupropion HCl 150 mg tablet,12 hr 150 mg PO DAILY 01/05/24 12/22/24 History sustained-release lisinopril 10 mg tablet 10 mg PO DAILY 01/05/24 12/22/24 History loratadine 10 mg tablet (Allergy 10 mg PO DAILY 01/05/24 12/22/24 History Relief (loratadine)) magnesium 250 mg tablet 250 mg PO DAILY 01/05/24 12/22/24 History pantoprazole 20 mg tablet,delayed 20 mg PO DAILY 01/05/24 12/22/24 History release simvastatin 10 mg tablet 10 mg PO QHS 01/05/24 12/22/24 History valacyclovir 500 mg tablet 500 mg PO Q12H PRN 01/05/24 12/22/24 History (Valtrex) albuterol 90 mcg-budesonide 80 2 inh inhalation ONCE #10.7 grams 02/04/24 12/22/24 Rx mcg/actuation HFA aerosol inhaler (Airsupra) azithromycin 250 mg tablet 250 mg PO .COMPLEX #90 tabs 02/04/24 12/22/24 Rx budesonide 160 mcg-glycopyr 9 See Rx Instructions .Route 04/10/24 12/22/24 Rx mcg-formot 4.8 mcg/actuation HFA .COMPLEX #10.7 grams inhaler (Breztri Aerosphere) aspirin 81 mg tablet,delayed 81 mg PO DAILY 05/25/24 12/22/24 History release (Adult Low Dose Aspirin) ipratropium 0.5 mg-albuterol 3 mg 3 ml inhalation Q4H PRN wheezing 05/25/24 12/22/24 Rx (2.5 mg base)/3 mL nebulization #180 mL soln montelukast 10 mg tablet 10 mg PO DAILY #90 tabs 05/25/24 12/22/24 Rx (Singulair) Exam Narrative Exam Narrative: General: Patient appears older than stated age, cachectic, flattened affect with poor eye contact, course and facial features, slow monotonous tone to voice and oriented only to person and place. She is less oriented to time and recent events. She is in moderate respiratory distress. She appears somnolent intermittently. HEENT: Normocephalic, eyes with pupils equal and react light symmetrically, extraocular movement intact and sclera anicteric. Oropharynx with dry mucosa. Neck: Supple without JVD. Back: Kyphotic without CVA tenderness. Lungs: Very poor aeration with slightly increased expiratory but no expiratory wheeze, no focalizing rales or rhonchi. Bronchovesicular breath sounds diffusely. Breast: Exam deferred. Heart: Regular rate and rhythm with distant heart sounds, no appreciable murmur or gallop. Abdomen: Scaphoid contour, soft and nontender to palpation with no palpable hepatosplenomegaly. Bowel sounds hypoactive but present in all quadrants. Genitalia/rectal: Exam deferred. Extremities: Without gross clubbing, cyanosis or pitting edema. Muscle wasting diffusely. Fair capillary refill. Skin: Pale, warm and dry with decreased turgor. Neuro: Cranial nerve II to XII grossly intact, no focal motor deficits or tremor. Psych: Flattened affect with depressed mood. No abnormal thought processes but patient does at times have increased confusion and is somnolent. Remote memory intact and recent memory less intact. Results Imaging Imaging Studies: EXAM: CT BRAIN NECK CTA CLINICAL HISTORY: CVA workup, balance issues, slurred speech. TECHNIQUE: Imaging Protocol: Axial CT angiography was performed with multi-slice acquisition and multi-planar and/or 3D reconstructions. CONTRAST MATERIAL: Intravenous: Omnipaque 350 Contrast volume:structured data in ml COMPARISON: CT HEAD WITHOUT CONTRAST from 09/04/2008 FINDINGS: CTA Neck W: Aortic arch anatomy: There is independent origin of the left vertebral artery off of the aortic arch. The right vertebral artery arises in conventional fashion off of the right subclavian artery. There is a moderate stenosis in the right subclavian artery proximal to the vertebral artery takeoff point. There is no stenosis at the exact origin point of the right vertebral artery off of the right subclavian artery. There is no significant stenosis at the origin of the great vessels off of the aortic arch. Anterior circulation: Both common carotid arteries ascend with normal luminal diameters. There is partially calcified plaque at the level both carotid bulbs and proximal internal carotid arteries. Approximately 30 percent stenosis bilaterally. No critical stenosis. The internal carotid arteries are patent bilaterally in the upper neck and skull base-carotid canals. Posterior circulation: Vertebral artery origins are as described above. Both vertebral arteries exhibit normal luminal diameters within the foramen transversarium. No evidence of significant stenosis, intraluminal thrombus, nor dissection evident within the vertebral arteries in the neck. Both vertebral arteries contribute to the formation of the basilar artery at the skull base. CTA Brain W: Anterior circulation: Both internal carotid arteries are patent in the skull base-carotid canals as well as within the cavernous sinuses. The supraclinoid aspects of the ICAs are patent. Both A1 segments are patent as are the anterior cerebral arteries and there is no evidence of aneurysm at the level of the anterior communicating artery. Both middle cerebral arteries are patent with no evidence of significant stenosis nor intraluminal thrombus. There also no aneurysms of these vessels. Posterior circulation: The basilar artery ascends in the midline. Distally it gives off patent bilateral superior cerebellar arteries. Above this level the basilar artery terminates as patent bilateral posterior cerebral arteries. There is a posterior communicating artery noted on the left side of the [id number]. There is no evidence of aneurysm at the tip of the basilar artery nor elsewhere in the [id number]. CT BRAIN: There is no evidence of intracranial hemorrhage, mass effect, or shift of midline structures. There are no extra-axial fluid collections. Ventricles are not enlarged or shifted. There are no ring enhancing lesions in the brain and no abnormal meningeal enhancement. IMPRESSION: 1. There is calcified plaque at the level both carotid bifurcations and proximal ICAs in the neck. No critical stenosis at these levels. Amount of stenosis is estimated approximately 30 percent bilaterally. 2. Patent vertebral arteries. No significant stenosis nor dissection. The left vertebral artery is noted to originate as a separate vessel off the aortic arch in this patient (instead of originating off the left subclavian artery in conventional fashion). 3. Patent intracranial arteries. No aneurysms. No obvious vascular malformations. 4. No ring enhancing lesions in the brain. No obvious CVA. EXAM: XR CHEST 2V PA LATERAL CLINICAL HISTORY: Hypoxia, cough. TECHNIQUE: 2D digital imaging was performed. COMPARISON: CR XR CHEST 2V PA LATERAL from 11/18/2024 FINDINGS: 2 views: Heart size is normal. The mediastinum is not widened. Bilateral hyperinflation is again noted but there are no confluent infiltrates nor pleural effusions. No pulmonary edema. No pneumothorax. No obvious acute fractures. IMPRESSION: COPD hyperinflation but no acute pulmonary findings. Please note that thoracic spine CT scan performed today revealed small lung nodules in the partially included lung rodriguez. Recommend follow-up chest CT scan. EXAM: CT THORACIC LUMBAR SPINE WO CLINICAL HISTORY: Fall, tailbone/low back pain. TECHNIQUE: Imaging Protocol: Axial computed tomography images with coronal and sagittal reformatted images were created and reviewed. CONTRAST MATERIAL: Intravenous: None COMPARISON: No exams were available for comparison FINDINGS: THORACIC SPINAL COLUMN: No evidence of fracture, listhesis, nor facet joint malalignment. There is no compromise of the central spinal canal. LUMBOSACRAL SPINAL COLUMN: Lumbar vertebrae are intact with no evidence of acute fracture or listhesis nor significant disc space narrowing. Facet joints appear unremarkable. No evidence of obvious sacral fracture. Sacroiliac joints appear unremarkable. Incidentally noted are ???kissing??? endovascular stents in both common iliac arteries. The abdominal aorta is calcified and there is an infrarenal fusiform abdominal aortic aneurysm which exhibits maximum diameter of 2.3 cm. Nevertheless, the aorta above this level measures 1.8 cm. Also incidentally noted is a pleural based nodular density in the left lung base posterior basal segment, incidentally noted on the coronal reconstructed images. This nodular density measures approximately 9 x 7 mm. Also partially calcified nodular density noted in the posterior segment of the left upper lobe. Another 5 mm slightly spiculated nodule is noted in the medial aspect of the left lower lobe adjacent to the left side of the T-11 vertebral body. IMPRESSION: No evidence of acute fractures of the thoracic and lumbosacral spinal columns nor evidence of obvious sacral fracture. Vascular findings as above. Incidental nodular densities in the partially included lung rodriguez. Consider follow-up chest CT scan. Exam: CTA Chest With Contrast Exam date and time: 12/22/2024 9:10 PM Age: 59 years old Clinical indication: Other: Hypoxia COMPARISON: CT THORAX CTA 09/04/2023 6:09 PM FINDINGS: Pulmonary arteries: No pulmonary embolism identified. Aorta: No thoracic aortic aneurysm or dissection Thyroid: Thyroid gland partially excluded from view and partially obscured by artifact but grossly unremarkable, as seen, through its visualized portion. Lungs: Emphysema. Patchy micronodular and tree-in-bud opacities in the lower lung zones suspicious for infectious bronchiolitis or aspiration. Patchy peripheral opacities at the left lung base. Otherwise, no region of maria r pulmonary consolidation. Pleural spaces: No pleural effusion or pneumothorax. Heart: Normal-sized heart. Lymph nodes: No pathologically enlarged mediastinal or hilar lymph nodes. Bones/joints: Lower ribs partially excluded from view and incompletely evaluated. Otherwise, no acute fracture seen among the bones of the chest. Mild thoracic kyphosis Soft tissues: No gross soft tissue mass or fluid collection seen in the chest wall. IMPRESSION: 1. Emphysema. 2. Patchy micronodular and tree-in-bud opacities with patchy peripheral alveolar opacities at the left base. An acute pulmonary infection such as infectious bronchiolitis or aspiration could produce this appearance. Clinical correlation is recommended. Labs 12/23/24 05:45 12/23/24 06:28 Labs: Laboratory Results - last 24 hr 12/22/24 12/22/24 12/22/24 17:33 18:56 19:40 WBC 13.30 H RBC 3.30 L Hgb 12.0 Hct 38.0 MCV 115 H MCH 36.4 H MCHC 31.6 L RDW 11.9 Plt Count 258 MPV 9.9 Immature Gran % 0.4 Neutrophils % 73.5 Lymphocytes % 10.2 Monocytes % 13.4 Eosinophils % 2.0 Basophils % 0.5 Nucleated RBC % 0.0 Absolute Neutrophils 9.78 H Absolute Lymphocytes 1.36 Absolute Monocytes 1.78 H Absolute Eosinophils 0.27 Absolute Basophils 0.07 RBC Morphology See Below Macrocytosis 2+ PT 10.2 INR 1.0 VBG pH 7.39 VBG pCO2 79 H* VBG pO2 75 VBG HCO3 48 H VBG Total CO2 44 H VBG O2 Saturation 96 VBG Base Excess 23 H Sodium 140 Potassium 3.9 Chloride 95 L Carbon Dioxide > 45.0 H Anion Gap -0.37946 L BUN 15 Creatinine 0.4 L Est GFR (CKD-EPI 2020) 113.94 Glucose 100 Calcium 9.5 Magnesium 1.7 L Total Bilirubin 0.3 AST 24 ALT 22 Alkaline Phosphatase 68 Troponin I 11 11 Total Protein 7.9 Albumin 3.6 COVID-19 Source Nasopharynx SARS-CoV-2 (PCR) Negative Influenza Type A (PCR) Negative Influenza Type B (PCR) Negative RSV (PCR) Negative Last Vital Signs Temp 36.2 C L 12/22/24 17:27 Pulse 95 H 12/22/24 20:10 Resp 18 12/22/24 20:10 BP 150/87 H 12/22/24 20:00 Pulse Ox 100 12/22/24 20:10 Time Spent Time spent with Patient: >75 minutes Time was spent: preparing to see the patient(eg.review tests), obtaining and/or reviewing separately otained hiistory, ordering medications,tests, procedures, indepentently interpreting results, counseling the patient, care coordination and other (Reviewed findings with family and discussed end-of-life issues.)
--- NOTE | 2024-12-22 21:23 | DI.CT_ITS ---
Exam(s) CT CHEST PE CTA EXAM: CT CHEST PE CTA CLINICAL HISTORY: Hypoxia. TECHNIQUE: Imaging Protocol: CT angiography of the chest was performed using pulmonary embolus jordyn col. Multi planar reconstructions were performed. CONTRAST MATERIAL: Intravenous: Omnipaque 350 Contrast volume: 55 cc COMPARISON: CT CT THORAX CTA from 09/04/2023 FINDINGS: CHEST: PULMONARY ARTERIES: There are no intraluminal filling defects to suggest acute pulmonary emboli. LUNGS: Emphysematous COPD changes. There are patchy micronodular and tree in bud opacities in both l ower lung rodriguez, this most prominent in the right middle lobe and lingular segment of the left lung. .. There is also pleural based infiltrate in the lateral basal segment of the left lower lobe measur ing 1.6 by 1.1 cm. Milder pleural based infiltrate is also noted in the posterior basal segment of t he left lower lobe as well as a few small nodular infiltrates. There is also a small nodule measurin g 3-4 mm in the right lower lobe. No pleural effusion on either side. No focal findings in the trac hea and mainstem bronchi.. There are no pleural effusions. MEDIASTINUM: There is no hilar nor mediastinal adenopathy. Visualized thyroid unremarkable. CARDIAC: Heart size is upper normal. There is no pericardial effusion.Caliber of the thoracic aorta is within normal limits. No evidence of aortic dissection. There is no significant shift of the inte rventricular septum. PARTIALLY VISUALIZED UPPERMOST ABDOMEN: No obvious findings OSSEOUS: No significant osseous lesions.. IMPRESSION: 1. No evidence of acute pulmonary emboli. 2. There is pleural based infiltrate in the lateral basal segment of the left lower lobe measuring ap proximately 1.6 x 1.1 cm. This was not evident on prior CT scan of August [address] fol low-up to resolution to rule out neoplasm. Other smaller area of infiltrate noted in the posterior b eric segment of the left lower lobe and there are small nodular densities bilaterally in the lung fie lds. Also micro nodular and tree-in-bud opacities in both lower lung rodriguez anteriorly, most obvious in the right middle lobe and lingular segment of the left lung. No pleural effusions. No obvious i ntrathoracic adenopathy. 3. No evidence of thoracic aortic aneurysm nor aortic dissection. Recommend follow-up CT scan in 3 months, earlier if clinically indicated. First read by [facility] RADIATION DOSE DELIVERED: 81.36mGy.cm Total DLP DATA REPOSITORY: All CT scans at this facility are submitted to the National Radiology Data Registry (NRDR) Dose Index Registry (DIR) with the [employer] (A[employer]). RADIATION OPTIMIZATION: All CT scans at this facility use at least one of these dose optimization te chniques: automated exposure control; mA and/or kV adjustment per patient size (includes targeted exa ms where dose is matched to clinical indication); or iterative reconstruction.
[2024-12-22 21:54] LABS: Iron 90 ug/dL (50-170)
[2024-12-22 22:04] LABS: TSH (W/Ref FT4) 2.75 uIU/mL (0.36-3.74)
--- NOTE | 2024-12-22 22:09 | DI.VRAD_ITS ---
PROCEDURE INFORMATION: Exam: CTA Chest With Contrast Exam date and time: 12/22/2024 9:10 PM Age: 59 years old Clinical indication: Other: Hypoxia TECHNIQUE: Imaging protocol: Computed tomographic angiography of the chest with contrast. Exam focused on the arteries. 3D rendering (Not supervised by radiologist): MIP and/or 3D reconstructed images were created by the technologist. Radiation optimization: All CT scans at this facility use at least one of these dose optimization techniques: automated exposure control; mA and/or kV adjustment per patient size (includes targeted exams where dose is matched to clinical indication); or iterative reconstruction. Contrast material: [id number]; Contrast volume: 55 ml; Contrast route: INTRAVENOUS (IV); COMPARISON: CT THORAX CTA 09/04/2023 6:09 PM FINDINGS: Pulmonary arteries: No pulmonary embolism identified. Aorta: No thoracic aortic aneurysm or dissection Thyroid: Thyroid gland partially excluded from view and partially obscured by artifact but grossly unremarkable, as seen, through its visualized portion. Lungs: Emphysema. Patchy micronodular and tree-in-bud opacities in the lower lung zones suspicious for infectious bronchiolitis or aspiration. Patchy peripheral opacities at the left lung base. Otherwise, no region of maria r pulmonary consolidation. Pleural spaces: No pleural effusion or pneumothorax. Heart: Normal-sized heart. Lymph nodes: No pathologically enlarged mediastinal or hilar lymph nodes. Bones/joints: Lower ribs partially excluded from view and incompletely evaluated. Otherwise, no acute fracture seen among the bones of the chest. Mild thoracic kyphosis Soft tissues: No gross soft tissue mass or fluid collection seen in the chest wall. IMPRESSION: 1. Emphysema. 2. Patchy micronodular and tree-in-bud opacities with patchy peripheral alveolar opacities at the left base. An acute pulmonary infection such as infectious bronchiolitis or aspiration could produce this appearance. Clinical correlation is recommended. Dictated and Authenticated by: Stew Falk MD. Orderin St. Yariel Wagner MD
[2024-12-22 22:21] LABS: Folate 7.8 ng/mL (8.6-20.0); Vitamin B12 728 pg/mL (193-986)
[2024-12-22] MEDS: MAGNESIUM SULFATE 2 GM/50 ML BAG IV_INF (22:56)
[2024-12-22] MEDS: Lisinopril 10 MG TAB PO (22:56)
[2024-12-22] MEDS: Clopidogrel 75 MG TAB PO (23:02)
[2024-12-22] MEDS: Gabapentin 400 MG CAP PO (23:02)
[2024-12-22 23:13] LABS: Troponin I 13 ng/L (<or=51)
[2024-12-23] VITALS (67 sets, daily range): BP systolic 69–110; BP diastolic 43–91; PULSE 67–133; RESP 9–30; TEMP 31–36; O2SAT 76–100
[2024-12-23 01:44] LABS: Bilirubin Negative (Negative); Blood Negative (Negative); Clarity Clear (Clear); Glucose Negative (Negative); Ketones Negative (Negative); Leukocyte Esterase Negative (Negative); Nitrite Negative (Negative); Urobilinogen 0.2 mg/dL (Up to 0.2)
[2024-12-23 01:49] LABS: Bacteria Negative HPF (Negative); C & S Indicated? No; Casts Negative LPF (Negative); Crystals Negative HPF (Negative); Epithelial Cells Rare HPF (Negative); Mucus Negative (Negative); Other Cells Rare Transitional (Negative); RBC 0-2 HPF (0-2)
[2024-12-23 01:57] LABS: *AMPHETAMINES SCREEN URINE Negative (Negative); *BARBITURATES SCREEN URINE Negative (Negative); *BENZODIAZEPINES SCREEN URINE Negative (Negative); Cannabinoids THC Positive (Negative); Cocaine Screen,Urine Negative (Negative); METHADONE URINE SCREEN Negative (Negative); OPIATES URINE SCREEN Negative (Negative)
[2024-12-23 01:59] LABS: Tricyclic Antidepressants Negative (Negative)
[2024-12-23 05:52] LABS: HCT 38.7 % (36.0-46.0); HGB 12.1 g/dL (11.2-15.7); MCHC 31.3 % (32.0-36.0); Platelet Count 194 10^3/uL (130-400); RBC 3.27 10^6/uL (3.93-5.22); RDW 12.3 % (11.7-14.6); RDW-SD 53.6 fL; WBC 5.69 10^3/uL (4.4-10.8)
[2024-12-23] MEDS: Albuterol/Ipratropium 3 ML UPD VIAL UPD ×2 (06:00→12:19)
[2024-12-23 06:37] LABS: MCV 118 fL (80-95)
[2024-12-23 07:00] LABS: ALT 26 U/L (14-59); AST 21 U/L (15-37); Albumin 3.5 g/dL (3.4-5.0); Alkaline Phosphatase 68 U/L (46-116); Anion Gap -1.00001 mmol/L (3-11); BUN 19 mg/dL (7-18); Bilirubin, Total 0.3 mg/dL (0.2-1.0); CO2 > 45.0 mmol/L (21.0-32.0); CREATININE 0.7 mg/dL (0.55-1.02); Calcium 9.6 mg/dL (8.5-10.1); Chloride 97 mmol/L (98-107); Estimated GFR 99.57 (mL/min/1.73m2); Glucose 141 mg/dL (74-106); Potassium 4.8 mmol/L (3.5-5.1); Sodium 141 mmol/L (136-145); Total Protein 7.8 g/dL (6.4-8.2)
[2024-12-23] MEDS: methylPREDNISolone SUCC 40 MG VIAL 80 MG IVP (08:46)
[2024-12-23] MEDS: Normal Saline Flush 10 ML SYR IVP (08:47)
[2024-12-23] MEDS: Nicotine 14 MG/24 HR PATCH TD (09:05)
[2024-12-23 09:09] LABS: BE (Venous) 20 mmol/L (-2-3); HCO3 (Venous) 49 mmol/L (23-28); O2 Sat (Venous) 82 %; TCO2 (Venous) 47 mmol/L (24-29); pO2 (Venous) 52 mmHg
[2024-12-23 09:12] LABS: pH (Venous) 7.16 (7.31-7.41)
--- NOTE | 2024-12-23 09:19 | INITIAL_ITS ---
Date of service: 12/23/24 Time of Service: 09:19 Care Management Initial Assmt Initial Assessment Reason for Hospitalization: COPD exacerbation/ hypercarbia and hypoxemia Functional Status/Living Situation Patient Presentation: Ely has a known hx of COPD and uses 2L of O2 at baseline. She presented to the ED yesterday evening with c/o speech changes, balance issues, and generalized weakness. Head CT showed no signs of ischemia or stroke changes. She was also noted to have O2 desaturations to the 60's, requiring initiation of hi-flow O2. She was started on nebs, solumedrol and abx. Ely has not been doing well today. Her condition is very serious, and family has been present for most of today. 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 did not meet directly with Ely, but did meet with sister, Kandis and medical apparatus model maker, Wesley. They plan to remain present. Lots of other supporting family have been present as well. Town of Residence: [place] Resides with: Other (Wesley) Significant Other/Family: Local (sister Kandis and male medical apparatus model maker Wesley and his sister Ashleigh) Natural Supports: large family and beloved by friends Employment Status: Disabled Instrumental Activities of Daily Living (ADLs): Independent Activities/Hobbies/SocialSupport: Ely loves to play bingo and enjoys knitting. She is well-known in her community Medications Medication Management: No Issues/Barriers identified Physical Functioning/Mobility Assistive Device: none Advance Directives Advance Directives: Do you have an Advance Directive: N 07/11/22 11:45 AD On File at [facility]: N 07/11/22 11:45 Date Asked 12/01/24 12/22/24 17:14 AD Date Reviewed COLST On File at [facility] COLST Date Scanned Code Status Resuscitation Status DNR/DNI Insurance Coverage/Financial Issues Insurance: Medicare Part A & B Care Team Visit Care Team Role Provider Type Wesley Livingston MD [facility] STAFF PHYSICIAN Lelo Bowman Primary Care Provider NURSE PRACTITIONER Kristy Mora MD Emergency Provider [facility] STAFF PHYSICIAN Estevan Cortes Admit Provider NON-[facility] STAFF PHYSICIAN Attending Provider Other: Janice Gonzalez Pulmonology Discharge Potential Discharge Needs: PCP F/U Appt and Other (has pulmonology appt with Janice Carlos on 12/28) Anticipated Barriers to Discharge: None Identified Patient/Family Education Needs: Review discharge instructions, discuss Ask Me Three Transportation: Private vehicle Plan: Ely's medical condition is very serious. It is anticipated that she will be made comfort measures only. CM will continue to follow and offer the family support. Social Determinants of Health Screening Will the Patient Participate in the Screening?: Declined to provide PFSH All Active Problems (Updated 12/22/24 @ 21:12 by Estevan Cortes) Macrocytosis without anemia (Chronic) Hypomagnesemia (Acute) Acute on chronic respiratory failure with hypoxia and hypercapnia (Acute) Generalized weakness (Acute) Carpal tunnel syndrome on left (Acute 05/02/15) Chest pain (Acute) COPD (chronic obstructive pulmonary disease) (Chronic) Current smoker (Acute) Respiratory failure with hypoxia (Acute) Medical History Arthropathy Polycythemia Bladder prolapse Anxiety Depression Fibrocystic breast disease Osteopenia Peripheral vascular disease mild claudication Shoulder pain Carpal tunnel syndrome Low back pain syndrome Fibromyalgia URI (upper respiratory infection) Anemia Plantar fasciitis Neuropathic arthritis PTSD (post-traumatic stress disorder) Dysuria Knee joint pain Degenerative joint disease Hyperlipidemia Tobacco abuse Asthma Gastroesophageal reflux disease Chronic obstructive lung disease Surgical History Cataract History of endarterectomy left iliofemoral endarterectomy w/patch angioplasty,left SFA and profunda endarterectomy, left external iliac stent placement 09/18/23. Hx of thrombosis of lower extremity (2012) Thrombectomy with stent placement RLE and repeat thrombectomy 2020. Open Carpal Tunnel release (07/28/15) LEFT WRIST/ Excision, Distal Clavicle (12/09/12) LEFT Family History Mother Uterine cancer Emphysema, unspecified Father Lung cancer Sister Lung cancer Emphysema, unspecified Paternal Grandfather Cancer Social History Smoking/Tobacco Use Status: Former Tobacco Use Quit Date: 10/30/24 Tobacco: How many years used: 45 Smoking risk assessment performed?: Yes Alcohol Intake: never Drug use: Occasionally Substance use type: marijuana Details: Marijuana every couple of nights. Do you feel safe at home: Yes Do you feel safe in your relationship?: Yes Readmission Within the Past 30 Days Yes or No: No
[2024-12-23] MEDS: Lactated Ringers 500 ML IV (12:11)
[2024-12-23 12:22] LABS: BE (Venous) 20 mmol/L (-2-3); HCO3 (Venous) 47 mmol/L (23-28); O2 Sat (Venous) 93 %; TCO2 (Venous) 44 mmol/L (24-29); pH (Venous) 7.23 (7.31-7.41); pO2 (Venous) 66 mmHg
[2024-12-23 12:29] LABS: pCO2 (Venous) > 105 mmHg (41-51)
[2024-12-23 12:41] LABS: pCO2 (Venous) > 105 mmHg (41-51)
--- NOTE | 2024-12-23 13:53 | CHAPLAIN ---
Ely is currently on BiPap. Her family understands that her situation is serious and that she may not survive. Ely indicated, a few times, earlier that she does not want to be intubated, so that an option. This morning she was able to speak with nurses and family members. This afternoon she is less interactive. The family is supportive of Ely and each other. Ely's daughter, son in law and partner are here along with other family members. Another daughter is driving from [place] and plans to arrive early tomorrow morning. I will continue to visit.
[2024-12-23] MEDS: DEXTROSE 5%-LACTATED RINGERS 1,000 ML 150 ML IV (14:03)
--- NOTE | 2024-12-23 14:32 | PHA.REVIEW2 ---
Pharmacy Admission Review Admission Clinical Review Admission Pharmacy Review: Hypomagnesemia (Acute) Acute on chronic respiratory failure with hypoxia and hypercapnia (Acute) umeclidinium (From Incruse Ellipta) Allergy (Severe, Verified 12/22/24 21:58) chest tightness bupropion (From Wellbutrin) Adverse Reaction (Intermediate, Verified 12/22/24 21:58) Nausea tramadol HCl (From Ultram) Adverse Reaction (Intermediate, Verified 12/22/24 21:58) Nausea Resuscitation Status DNR/DNI Height 5 ft 1 in Weight 37.8 kg Pharmacy Admission Review Renal Dosing Renal Dosing: BUN 19 mg/dL (7-18) H 12/23/24 06:28 Creatinine 0.7 mg/dL (0.55-1.02) 12/23/24 06:28 Medications needing adjustments: Reviewed (CrCl 51 mL/min, BUN increased from 15) List of meds needing interventions: Current medications are okay Anticoagulation Anticoagulation: Hgb 12.1 g/dL (11.2-15.7) 12/23/24 05:45 Hct 38.7 % (36.0-46.0) 12/23/24 05:45 Plt Count 194 10^3/uL (130-400) 12/23/24 05:45 INR 1.0 (0.9-1.1) 12/22/24 17:33 Creatinine 0.7 mg/dL (0.55-1.02) 12/23/24 06:28 DVT Prophylaxis: Reviewed Medications: Rivaroxaban (2.5mg PO BID) Relevant Labs Relevant Labs: Sodium 141 mmol/L (136-145) 12/23/24 06:28 Potassium 4.8 mmol/L (3.5-5.1) 12/23/24 06:28 Chloride 97 mmol/L (98-107) L 12/23/24 06:28 Magnesium 1.7 mg/dL (1.8-2.4) L 12/22/24 17:33 Electrolytes, C-Reactive P, ESR: Reviewed Cardiac Review Cardiac Review: Troponin I 13 ng/L (<or=51) 12/22/24 20:45 Blood Pressure 95/52 1301 Blood Pressure 92/48 1245 Blood Pressure 87/49 1243 Blood Pressure 77/50 1230 Blood Pressure 75/48 1216 Blood Pressure 85/55 1201 Blood Pressure 95/57 1146 Blood Pressure 93/58 1131 Blood Pressure 78/54 1115 Blood Pressure 85/52 1100 Blood Pressure 81/58 1045 Blood Pressure 90/59 1031 Blood Pressure 94/61 1016 Blood Pressure 96/60 1005 Blood Pressure 92/60 1000 Blood Pressure 93/55 0941 BP, HR, EF%: Reviewed (HFNC at 50) List meds needing interventions: Has order for lisinopril 10mg daily QTc Review QTc: Reviewed (429 from 12/22/24) IV to PO Switch IV Medications: Reviewed (azithromycin, ceftriaxone and methylprednisolone) Home Meds Home Med List reviewed: Intervened Relevent Home Meds Not ordered & why?: hydroxyzine (on hold per H+P), Airsupra, Proair (PRN), bupropion (was ordered but then canceled), clopidogrel (was ordered but then canceled), ferrous sulfate, loratadine, valacyclovir (PRN), Chantix starting box Reached out to nurse regarding the following: Per nurse patient somnolent and unable to answer questions 1. Can we clarify what inhalers she uses at home - has Airsupra and Breztri on home med list but those wouldn't be used together. Also recently filled Advair but thats not even on her home med list. Left order for Breztri pending for now. 2. What dose of simvastatin does she take at home? Says 10mg on home med list but external fill history shows 20mg daily? 3. Does she take alendronate at home? - can see external fill history but not on home med list 4. What dose of Xarelto does she take at home? - had on home med list twice. One said 20mg daily and another said 2.5mg BID. But looking at external prescription information looks like it was filled as 2.mg DAILY. Current order is for 2.5mg BID (changed from 20mg daily) Took omeprazole off of home med list, listed as not taking and patient takes pantoprazole (also on home med list) Current Meds Current Medication Order Review: Intervened Comments: Changed IV ED access Pharmacy Antibiotic Review Relevant Labs: WBC 5.69 10^3/uL (4.4-10.8) 12/23/24 05:45 Temperature 36 C Temperature 36 C Pharmacy Antibiotic Activity: C/S review and Reviewed, no change Comments: Patient is on ceftriaxone and azithromycin, day 1, for respiratory failure. WBC decreased from 13.3 and no cultures pending at this time.
[2024-12-23 14:50] LABS: BE (Venous) 18 mmol/L (-2-3); HCO3 (Venous) 47 mmol/L (23-28); TCO2 (Venous) 45 mmol/L (24-29); pO2 (Venous) 157 mmHg
[2024-12-23 15:01] LABS: pCO2 (Venous) > 105 mmHg (41-51); pH (Venous) 7.14 (7.31-7.41)
[2024-12-23 15:30] LABS: O2 Sat (Venous) > 99 %
--- NOTE | 2024-12-23 16:40 | PGE_ITS ---
Date of Service Date of service: 12/23/24 Time of Service: 16:40 Assessment and Plan Assessment and plan (1) Acute on chronic respiratory failure with hypoxia and hypercapnia: Start date: 12/22/24 Status: Acute Assessment and plan: History of end-stage COPD/emphysema on home oxygen, smoking. Treating pneumonia along with COPD exacerbatoin. no PE in CTA. She unfortunately worsened overnight with MS suppression a/w hypercapnea leading to profound respiratory acidosis. We have been adjusting BiPAP/NIV all day, some improvement in pH initially but now trending worse. This is clearly a patient we would intubate, but she was clear about DNR/DNI when she was alert last night. Family members including DIL and senior care partner at bedside. They understand she is near despite maximum intervention short of intubation. At this point, they would like to continue BiPAP for support her, hopeful her sister will make it from [place] tomorrow morning, but focus is on comfort. Palliative and interactive multimedia designer consulted. (2) COPD (chronic obstructive pulmonary disease): Status: Chronic Assessment and plan: Treated as above, now focus on comfort. (3) Tobacco abuse: Assessment and plan: Patient did smoke up to 2 months ago and is on a nicotine patch, continue this for comfort. (4) Fibromyalgia: Assessment and plan: Chronic pain with history of PTSD. Was on gabapentin and venlafaxine, not taking PO now. only THC on UDS. Subjective Subjective Patient reports: denies diarrhea, vomiting or fever Interval history since last seen: 24 hr: Admitted overnight. Was conversant last night, confirmed DNR/DNI This morning patient difficult to arouse, VBG revealed hypercapnea and respiratory acidosis, started on BiPAP Patient sedate, unable to give history. Intermittently opens eyes and able to respond to direct questions with yes/no. Not able to eat/take oral medications Exam Narrative Exam Narrative: General: Sedate, awakened to light touch this morning, answered hospital to orientation questions, but falls back asleep, unable to follow commands HEENT: Normocephalic, eyes with pupils equal and react light symmetrically, extraocular movement intact and sclera anicteric. Neck: Supple without JVD. Lungs: Very poor aeration without focalizing rales or rhonchi. Heart: Regular rate and rhythm with distant heart sounds, no appreciable murmur or gallop. Abdomen: Scaphoid contour, soft and nontender to palpation with no palpable hepatosplenomegaly. Bowel sounds hypoactive but present in all quadrants. Extremities: Without gross clubbing, cyanosis or pitting edema. Skin: Pale, warm and dry, no rash Objective Last Vital Signs Temp 36 C L 12/23/24 12:00 Pulse 68 12/23/24 16:00 Resp 20 12/23/24 16:00 BP 69/43 L 12/23/24 15:30 Pulse Ox 96 12/23/24 16:00 Laboratory Results - last 24 hr 12/22/24 12/22/24 12/22/24 17:33 18:56 19:40 WBC 13.30 H RBC 3.30 L Hgb 12.0 Hct 38.0 MCV 115 H MCH 36.4 H MCHC 31.6 L RDW 11.9 Plt Count 258 MPV 9.9 Immature Gran % 0.4 Neutrophils % 73.5 Lymphocytes % 10.2 Monocytes % 13.4 Eosinophils % 2.0 Basophils % 0.5 Nucleated RBC % 0.0 Absolute Neutrophils 9.78 H Absolute Lymphocytes 1.36 Absolute Monocytes 1.78 H Absolute Eosinophils 0.27 Absolute Basophils 0.07 RBC Morphology See Below Macrocytosis 2+ PT 10.2 INR 1.0 VBG pH 7.39 VBG pCO2 79 H* VBG pO2 75 VBG HCO3 48 H VBG Total CO2 44 H VBG O2 Saturation 96 VBG Base Excess 23 H Sodium 140 Potassium 3.9 Chloride 95 L Carbon Dioxide > 45.0 H Anion Gap -0.83330 L BUN 15 Creatinine 0.4 L Est GFR (CKD-EPI 2020) 113.94 Glucose 100 Calcium 9.5 Magnesium 1.7 L Iron 90 Total Bilirubin 0.3 AST 24 ALT 22 Alkaline Phosphatase 68 Troponin I 11 11 Total Protein 7.9 Albumin 3.6 Vitamin B12 728 Folate 7.8 L TSH 2.75 Urine Color Urine Clarity Urine pH Ur Specific [place] Urine Protein Urine Ketones Urine Blood Urine Nitrite Urine Bilirubin Urine Urobilinogen Ur Leukocyte Esterase Urine RBC Urine WBC Ur Epithelial Cells Urine Crystals Urine Bacteria Urine Casts Urine Mucus Urine Other Ur Culture Indicated? Urine Glucose Urine Opiates Screen Urine Methadone Screen Ur Barbiturates Screen Ur Tricyclics Screen Ur Amphetamines Screen U Benzodiazepines Scrn Urine Cocaine Screen Ur THC Screen COVID-19 Source Nasopharynx SARS-CoV-2 (PCR) Negative Influenza Type A (PCR) Negative Influenza Type B (PCR) Negative RSV (PCR) Negative 12/22/24 12/22/24 12/23/24 20:45 22:34 01:30 WBC RBC Hgb Hct MCV MCH MCHC RDW Plt Count MPV Immature Gran % Neutrophils % Lymphocytes % Monocytes % Eosinophils % Basophils % Nucleated RBC % Absolute Neutrophils Absolute Lymphocytes Absolute Monocytes Absolute Eosinophils Absolute Basophils RBC Morphology Macrocytosis PT INR VBG pH VBG pCO2 VBG pO2 VBG HCO3 VBG Total CO2 VBG O2 Saturation VBG Base Excess Sodium Potassium Chloride Carbon Dioxide Anion Gap BUN Creatinine Est GFR (CKD-EPI 2020) Glucose Calcium Magnesium Iron Total Bilirubin AST ALT Alkaline Phosphatase Troponin I 13 Total Protein Albumin Vitamin B12 Folate TSH Cancelled Urine Color Yellow Urine Clarity Clear Urine pH 7.0 Ur Specific [place] 1.010 Urine Protein 30 H Urine Ketones Negative Urine Blood Negative Urine Nitrite Negative Urine Bilirubin Negative Urine Urobilinogen 0.2 Ur Leukocyte Esterase Negative Urine RBC 0-2 Urine WBC 3-5 Ur Epithelial Cells Rare Urine Crystals Negative Urine Bacteria Negative Urine Casts Negative Urine Mucus Negative Urine Other Rare Transitional Ur Culture Indicated? No Urine Glucose Negative Urine Opiates Screen Negative Urine Methadone Screen Negative Ur Barbiturates Screen Negative Ur Tricyclics Screen Negative Ur Amphetamines Screen Negative U Benzodiazepines Scrn Negative Urine Cocaine Screen Negative Ur THC Screen Positive A COVID-19 Source SARS-CoV-2 (PCR) Influenza Type A (PCR) Influenza Type B (PCR) RSV (PCR) 12/23/24 12/23/24 12/23/24 05:45 06:28 09:02 WBC 5.69 RBC 3.27 L Hgb 12.1 Hct 38.7 MCV 118 H MCH 37.0 H MCHC 31.3 L RDW 12.3 Plt Count 194 MPV 10.0 Immature Gran % Neutrophils % Lymphocytes % Monocytes % Eosinophils % Basophils % Nucleated RBC % Absolute Neutrophils Absolute Lymphocytes Absolute Monocytes Absolute Eosinophils Absolute Basophils RBC Morphology Macrocytosis PT INR VBG pH 7.16 L* VBG pCO2 > 105 H* VBG pO2 52 VBG HCO3 49 H VBG Total CO2 47 H VBG O2 Saturation 82 VBG Base Excess 20 H Sodium 141 Potassium 4.8 Chloride 97 L Carbon Dioxide > 45.0 H Anion Gap -1.23557 L BUN 19 H Creatinine 0.7 Est GFR (CKD-EPI 2020) 99.57 Glucose 141 H Calcium 9.6 Magnesium Iron Total Bilirubin 0.3 AST 21 ALT 26 Alkaline Phosphatase 68 Troponin I Total Protein 7.8 Albumin 3.5 Vitamin B12 Folate TSH Urine Color Urine Clarity Urine pH Ur Specific [place] Urine Protein Urine Ketones Urine Blood Urine Nitrite Urine Bilirubin Urine Urobilinogen Ur Leukocyte Esterase Urine RBC Urine WBC Ur Epithelial Cells Urine Crystals Urine Bacteria Urine Casts Urine Mucus Urine Other Ur Culture Indicated? Urine Glucose Urine Opiates Screen Urine Methadone Screen Ur Barbiturates Screen Ur Tricyclics Screen Ur Amphetamines Screen U Benzodiazepines Scrn Urine Cocaine Screen Ur THC Screen COVID-19 Source SARS-CoV-2 (PCR) Influenza Type A (PCR) Influenza Type B (PCR) RSV (PCR) 12/23/24 12/23/24 12:10 14:40 WBC RBC Hgb Hct MCV MCH MCHC RDW Plt Count MPV Immature Gran % Neutrophils % Lymphocytes % Monocytes % Eosinophils % Basophils % Nucleated RBC % Absolute Neutrophils Absolute Lymphocytes Absolute Monocytes Absolute Eosinophils Absolute Basophils RBC Morphology Macrocytosis PT INR VBG pH 7.23 L 7.14 L* VBG pCO2 > 105 H* > 105 H* VBG pO2 66 157 VBG HCO3 47 H 47 H VBG Total CO2 44 H 45 H VBG O2 Saturation 93 > 99 VBG Base Excess 20 H 18 H Sodium Potassium Chloride Carbon Dioxide Anion Gap BUN Creatinine Est GFR (CKD-EPI 2020) Glucose Calcium Magnesium Iron Total Bilirubin AST ALT Alkaline Phosphatase Troponin I Total Protein Albumin Vitamin B12 Folate TSH Urine Color Urine Clarity Urine pH Ur Specific [place] Urine Protein Urine Ketones Urine Blood Urine Nitrite Urine Bilirubin Urine Urobilinogen Ur Leukocyte Esterase Urine RBC Urine WBC Ur Epithelial Cells Urine Crystals Urine Bacteria Urine Casts Urine Mucus Urine Other Ur Culture Indicated? Urine Glucose Urine Opiates Screen Urine Methadone Screen Ur Barbiturates Screen Ur Tricyclics Screen Ur Amphetamines Screen U Benzodiazepines Scrn Urine Cocaine Screen Ur THC Screen COVID-19 Source SARS-CoV-2 (PCR) Influenza Type A (PCR) Influenza Type B (PCR) RSV (PCR) Time Spent with Patient Time Spent with Patient: >50 minutes Time was spent: preparing to see the patient(eg.review tests), obtaining and/or reviewing separately otained hiistory, ordering medications,tests, procedures, referring, communicating with other health direct care counselor, indepentently interpreting results, counseling the patient, care coordination and other (meeting and discussing case with family at bedside)
[2024-12-24] VITALS (13 sets, daily range): PULSE 81–90; RESP 24; O2SAT 89–99
[2024-12-24] MEDS: DEXTROSE 5%-LACTATED RINGERS 1,000 ML 80 ML IV (02:46)
[2024-12-24 06:40] LABS: HCT 33.4 % (36.0-46.0); HGB 10.3 g/dL (11.2-15.7); MCH 36.3 pg (27.0-33.0); MCHC 30.8 % (32.0-36.0); MCV 118 fL (80-95); MPV 10.4 fL (8.0-11.0); Platelet Count 197 10^3/uL (130-400); RBC 2.84 10^6/uL (3.93-5.22); RDW-SD 52.1 fL; WBC 15.46 10^3/uL (4.4-10.8)
[2024-12-24 07:25] LABS: ALT 18 U/L (14-59); AST 21 U/L (15-37); Alkaline Phosphatase 50 U/L (46-116); BUN 37 mg/dL (7-18); Bilirubin, Total 0.2 mg/dL (0.2-1.0); CREATININE 0.9 mg/dL (0.55-1.02); Calcium 9.2 mg/dL (8.5-10.1); Chloride 100 mmol/L (98-107); Estimated GFR 73.64 (mL/min/1.73m2); Glucose 114 mg/dL (74-106); Potassium 4.6 mmol/L (3.5-5.1); Sodium 143 mmol/L (136-145); Total Protein 6.5 g/dL (6.4-8.2)
[2024-12-24 07:26] LABS: Anion Gap -2.00001 mmol/L (3-11); CO2 > 45.0 mmol/L (21.0-32.0)
[2024-12-24] MEDS: MORPHine 2 MG/ML SYR IVP ×2 (07:31→10:40)
--- NOTE | 2024-12-24 09:26 | W.PALLCONSUL ---
Date of service: 12/24/24 Time of Service: 09:27 History of Present Illness Narrative: Ely is a 59 year old with chronic hypoxic respiratory failure who was admitted to the hospital and initially treated for COPD exacerbation and acute on chronic hypoxic respiratory failure before transitioning to EXPANSION JOINT FINISHER. Ely was seen in her room in the ICU for Palliative consult. She is wearing BiPAP. Nursing is removing the BiPAP for her to take ice chips. Her SaO2 decreased to the 70s when the BiPAP was removed. She had several family members in the room with her at the time of the visit. Discussed starting a hydromorphone drip for dyspnea (MS not available). Discussed getting her off BiPAP and moving out to the med/surg floor. She and her family are in agreement with this. Discussed with Med/surg coordinator who spoke with sales warehouse driver. Plan is to hold room #218 for her and get her out of the ICU as soon as she can comfortably make the transition. 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 She was intially being treated for COPD exacerbation but care has now shifted to EXPANSION JOINT FINISHER. She appears to have increased WOB, will start hydromorphone drip for dyspnea (MS not available) and get her off BiPAP and to the med/surg floor. Room 218 is being held for her. She has several family members present. (2) COPD (chronic obstructive pulmonary disease): Status: Chronic Assessment and plan: (3) Generalized weakness: Status: Acute (4) Palliative care encounter: Status: Acute Assessment and plan: Ely is a 59 year old female with end-stage COPD with acute on chronic respiratory failure who has transitioned to EXPANSION JOINT FINISHER. See above for plan. Palliative will continue to follow along. Review of Systems Narrative: Unable to engage in full ROS due to dyspnea. PFSH All Active Problems (Updated 12/24/24 @ 11:01 by Josephine Morrison NP) Palliative care encounter (Acute) Macrocytosis without anemia (Chronic) Hypomagnesemia (Acute) Acute on chronic respiratory failure with hypoxia and hypercapnia (Acute) Generalized weakness (Acute) Carpal tunnel syndrome on left (Acute 05/02/15) Chest pain (Acute) COPD (chronic obstructive pulmonary disease) (Chronic) Current smoker (Acute) Respiratory failure with hypoxia (Acute) Medical History Arthropathy Polycythemia Bladder prolapse Anxiety Depression Fibrocystic breast disease Osteopenia Peripheral vascular disease mild claudication Shoulder pain Carpal tunnel syndrome Low back pain syndrome Fibromyalgia URI (upper respiratory infection) Anemia Plantar fasciitis Neuropathic arthritis PTSD (post-traumatic stress disorder) Dysuria Knee joint pain Degenerative joint disease Hyperlipidemia Tobacco abuse Asthma Gastroesophageal reflux disease Chronic obstructive lung disease Surgical History Cataract History of endarterectomy left iliofemoral endarterectomy w/patch angioplasty,left SFA and profunda endarterectomy, left external iliac stent placement 09/18/23. Hx of thrombosis of lower extremity (2012) Thrombectomy with stent placement RLE and repeat thrombectomy 2020. Open Carpal Tunnel release (07/28/15) LEFT WRIST/ Excision, Distal Clavicle (12/09/12) LEFT Family History Mother Uterine cancer Emphysema, unspecified Father Lung cancer Sister Lung cancer Emphysema, unspecified Paternal Grandfather Cancer Social History Smoking/Tobacco Use Status: Former Tobacco Use Quit Date: 10/30/24 Tobacco: How many years used: 45 Smoking risk assessment performed?: Yes Alcohol Intake: never Drug use: Occasionally Substance use type: marijuana Details: Marijuana every couple of nights. Do you feel safe at home: Yes Do you feel safe in your relationship?: Yes Exam Narrative Exam Narrative: General: middle-aged, thin female, lying in hospital bed with BiPAP on and several family members surrounding her. She was awake, answered questions with brief responses due to dyspnea/BiPAP. She appeared mildly confused at times about what hospital she was in. HEENT: normocephalic, atraumatic, EOMI, MM dry. Neck: supple Respiratory: appears to have severe dyspnea, on BiPAP, unable to speak more and a couple of words due to increased WOB. Ext: moving all 4 extremities freely. Results Last Vital Signs Temp 36 C L 12/23/24 12:00 Pulse 84 12/24/24 08:00 Resp 26 H 12/23/24 18:12 BP 74/45 L 12/23/24 16:01 Pulse Ox 98 12/24/24 08:00 Labs 12/24/24 05:45 12/24/24 05:45 Labs: Laboratory Results - last 24 hr 12/23/24 12/23/24 12/23/24 09:02 12:10 14:40 WBC RBC Hgb Hct MCV MCH MCHC RDW Plt Count MPV VBG pH 7.23 L 7.14 L* VBG pCO2 > 105 H* > 105 H* > 105 H* VBG pO2 66 157 VBG HCO3 47 H 47 H VBG Total CO2 44 H 45 H VBG O2 Saturation 93 > 99 VBG Base Excess 20 H 18 H Sodium Potassium Chloride Carbon Dioxide Anion Gap BUN Creatinine Est GFR (CKD-EPI 2020) Glucose Calcium Total Bilirubin AST ALT Alkaline Phosphatase Total Protein Albumin 12/24/24 05:45 WBC 15.46 H RBC 2.84 L Hgb 10.3 L Hct 33.4 L MCV 118 H MCH 36.3 H MCHC 30.8 L RDW 12.0 Plt Count 197 MPV 10.4 VBG pH VBG pCO2 VBG pO2 VBG HCO3 VBG Total CO2 VBG O2 Saturation VBG Base Excess Sodium 143 Potassium 4.6 Chloride 100 Carbon Dioxide > 45.0 H Anion Gap -2.80118 L BUN 37 H Creatinine 0.9 Est GFR (CKD-EPI 2020) 73.64 Glucose 114 H Calcium 9.2 Total Bilirubin 0.2 AST 21 ALT 18 Alkaline Phosphatase 50 Total Protein 6.5 Albumin 3.0 L Time Spent Time Spent with Patient Time Spent(min): 55
--- NOTE | 2024-12-24 09:30 | W.NUTRFU ---
Date of service: 12/24/24 Time of Service: 09:30 Nutrition Note NOTE: PT chart screened for initial nutrition assessment and focus on comfort measures is noted. Nursing requested hold on meal trays. No aggressive intervention planned at this time Time Spent in Nutritional Counseling and Treatment: 0
[2024-12-24] MEDS: LORazepam 2 MG/ML VIAL 1 MG IVP ×3 (10:25→17:29)
[2024-12-24] MEDS: Hyoscyamine 0.125 MG SL/ORAL/CHEW SL (10:40)
[2024-12-24] MEDS: Normal Saline Flush 10 ML SYR IVP ×2 (10:42→20:05)
[2024-12-24] MEDS: HYDROmorphone 100 MG in Normal Saline 240 ML IV_INF (11:50)
--- NOTE | 2024-12-24 12:56 | W.PC.ACHO ---
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 12/22/24 17:16 numbness, confusion, loss of balance, began had x1 fall this morning, Medical / Surgical History (Last Reviewed 12/24/24 @ 10:03 by Josephine Morrison NP) Arthropathy Polycythemia Bladder prolapse Anxiety Depression Fibrocystic breast disease Osteopenia Peripheral vascular disease Shoulder pain Carpal tunnel syndrome Low back pain syndrome Fibromyalgia URI (upper respiratory infection) Anemia Plantar fasciitis Neuropathic arthritis PTSD (post-traumatic stress disorder) Dysuria Knee joint pain Degenerative joint disease Hyperlipidemia Tobacco abuse Asthma Gastroesophageal reflux disease Chronic obstructive lung disease (Last Reviewed 12/24/24 @ 10:03 by Josephine Morrison NP) Cataract History of endarterectomy Hx of thrombosis of lower extremity (2012) Open Carpal Tunnel release (07/28/15) Excision, Distal Clavicle (12/09/12) Most Recent Vital Signs Temperature 36 C L 12/23/24 12:00 Temperature Source Tympanic 12/23/24 12:00 Pulse 90 12/24/24 10:00 Pulse 79 12/23/24 17:00 Respiratory Rate 26 H 12/23/24 18:12 Respiratory Effort Incrsd Work of Breathing 12/22/24 22:38 Respiratory Depth Normal 12/22/24 22:38 Respiratory Pattern Tachypnea 12/22/24 22:38 Blood Pressure 74/45 L 12/23/24 16:01 Blood Pressure Mean 55 12/23/24 16:01 Pulse Oximetry 89 L 12/24/24 10:00 Oxygen Delivery Method Bi-pap 12/24/24 01:52 Oxygen Flow Rate 50 12/23/24 09:40 Fraction of Inspired Oxygen (FIO2) 61 12/24/24 01:52 Pain Level 0 12/24/24 12:09 Comment see non invasive ventilation intervention for bipap settings 12/23/24 12:00 Allergies umeclidinium (From Incruse Ellipta) Allergy (Severe, Verified 12/22/24 21:58) chest tightness bupropion (From Wellbutrin) Adverse Reaction (Intermediate, Verified 12/22/24 21:58) Nausea tramadol HCl (From Ultram) Adverse Reaction (Intermediate, Verified 12/22/24 21:58) Nausea Precautions Isolation Standard precaution 12/22/24 18:19 Active Medications Generic Name Dose Route Start Last Admin Trade Name Freq PRN Reason Stop Dose Admin Albuterol/Ipratropium 3 ml 12/23/24 00:00 12/24/24 12:46 Albuterol/Ipratropium 3 Ml Upd Vial UPD Not Given Q6H ALMITA Diclofenac Sodium 0 gm 12/23/24 08:30 12/24/24 08:25 Diclofenac 1% Gel 100 Gm Tube TP Not Given BID ALMITA Gabapentin 400 mg 12/22/24 23:00 12/22/24 23:02 Gabapentin 400 Mg Cap PO 400 mg QPM ALMITA Administration Hyoscyamine Sulfate 0.125 mg 12/23/24 16:35 12/24/24 10:40 Hyoscyamine 0.125 Mg Sl/Oral/Chew SL 0.125 mg Q4H PRN PRN Administration Hydromorphone HCl 100 mg/ 250 mls @ 0.5 mls/hr 12/24/24 11:00 12/24/24 12:42 Sodium Chloride IV_INF 0.2 mg/hr INFUSION ALMITA 0.5 mls/hr Titration Protocol 0.2 MG/HR Lorazepam 1 mg 12/23/24 23:08 12/24/24 10:25 Lorazepam 2 Mg/Ml Vial IVP 1 mg Q2H PRN PRN Administration Nicotine 14 mg 12/23/24 08:30 12/24/24 09:52 Nicotine 14 Mg/24 Hr Patch TD Not Given DAILY ALMITA Pantoprazole Sodium 20 mg 12/23/24 07:30 12/24/24 08:25 Pantoprazole 20 Mg Tabcr PO Not Given 0730 ALMITA Sodium Chloride 0 ml 12/22/24 17:23 12/24/24 10:42 Normal Saline Flush 10 Ml Syr IVP 10 ml PRN PRN Administration Sodium Chloride 0 ml 12/22/24 20:00 12/24/24 12:47 Normal Saline Flush 10 Ml Syr IVP Not Given BID ALMITA IV IV Catheter Type [Left Peripheral IV Antecubital] IV Catheter Gauge [Left 18 Antecubital] Diagnostics 12/24/24 12/23/24 Range/Units 05:45 14:40 WBC 15.46 H (4.4-10.8) 10^3/uL RBC 2.84 L (3.93-5.22) 10^6/uL Hgb 10.3 L (11.2-15.7) g/dL Hct 33.4 L (36.0-46.0) % MCV 118 H (80-95) fL MCH 36.3 H (27.0-33.0) pg MCHC 30.8 L (32.0-36.0) % RDW 12.0 (11.7-14.6) % Plt Count 197 (130-400) 10^3/uL MPV 10.4 (8.0-11.0) fL VBG pH 7.14 L* (7.31-7.41) VBG pCO2 > 105 H* (41-51) mmHg VBG pO2 157 mmHg VBG HCO3 47 H (23-28) mmol/L VBG Total CO2 45 H (24-29) mmol/L VBG O2 Saturation > 99 % VBG Base Excess 18 H (-2-3) mmol/L Sodium 143 (136-145) mmol/L Potassium 4.6 (3.5-5.1) mmol/L Chloride 100 (98-107) mmol/L Carbon Dioxide > 45.0 H (21.0-32.0) mmol/L Anion Gap -2.81466 L (3-11) mmol/L BUN 37 H (7-18) mg/dL Creatinine 0.9 (0.55-1.02) mg/dL Est GFR (CKD-EPI 2020) 73.64 (mL/min/1.73m2) Glucose 114 H (74-106) mg/dL Calcium 9.2 (8.5-10.1) mg/dL Total Bilirubin 0.2 (0.2-1.0) mg/dL AST 21 (15-37) U/L ALT 18 (14-59) U/L Alkaline Phosphatase 50 (46-116) U/L Total Protein 6.5 (6.4-8.2) g/dL Albumin 3.0 L (3.4-5.0) g/dL Intake and Output - 24 Hour Total 12/22/24 17:14 thru 12/24/24 12:42 Intake Total 2663.600 Output Total 250 Balance 2413.600 Weight 37.8 kg Intake: IV 2403.600 Oral 260 Output: Urine 250 Other: Urine Color Yellow Urine Appearance Hematuria Urine Odor Strong Comment vds in depends Stool Size Large Stool Characteristics Soft Brown Falls Risk Assessment History of Falls No History 12/22/24 22:38 Contributing Factors Unstable,Medications 12/22/24 22:38 Ambulatory Aids Independent 12/22/24 22:38 Tubes/Lines With any additional score 12/22/24 22:38 Gait Evaluation W/any additional score 12/22/24 22:38 Cognition No cognitive impairment 12/22/24 22:38 Fall Total Score 46 12/22/24 22:38 Level of Risk Moderate Risk 12/22/24 22:38 Problems (Last Reviewed 12/24/24 @ 10:03 by Josephine Morrison, RODRIGO) Palliative care encounter (Acute) Macrocytosis without anemia (Chronic) Hypomagnesemia (Acute) Acute on chronic respiratory failure with hypoxia and hypercapnia (Acute) Generalized weakness (Acute) COPD (chronic obstructive pulmonary disease) (Chronic) Notes 12/22/24 20:45 Respiratory by Imer Bermudez PT desat to high 60's. thought is of mucous plugging. we was placed on a little more flow to 50lpm and fio2 was adjusted to 55% where she was witnessed to be 90-92 while awake and when she fell asleep was 86-88% this is acceptable considering the late stage of her lung disease. pt appears comfortable in no distress Initialized on 12/22/24 20:45 - END OF NOTE 12/22/24 20:24 Nursing Notes by Srinath Gimenez PTs SPO2% decreased to 65% RT and MD at bedside. Nursing Note: Initialized on 12/22/24 20:24 - END OF NOTE 12/22/24 20:18 Respiratory by Imer Bermudez PT WAS PLACED ON HIGH FLOW NASAL CANNULA WITH SETTINGS OF 40LPM AND 35% FIO2. PT TOLERATES THIS WITH A SPO2 OF 95-98% NO DISTRESS NOTED. Initialized on 12/22/24 20:18 - END OF NOTE 12/22/24 20:12 Nursing Notes by Srinath Gimenez PT on high flow O2 by RT Nursing Note: Initialized on 12/22/24 20:12 - END OF NOTE 12/22/24 20:12 Nursing Notes by Srinath Gimenez PT has 2 episodes of her SPO2% going down to the 70s. ED MD and RT notified. Nursing Note: Initialized on 12/22/24 20:12 - END OF NOTE 12/22/24 20:11 Nursing Notes by Srinath Gimenez RT at bedside Nursing Note: Initialized on 12/22/24 20:11 - END OF NOTE v v v v v v v v v Sending and/or Receiving Nurses: Please use comment section below to note any information pertinent to the patient hand-off not included above. Information / Comments: Report received from: D[facility] ICU @ 0090
--- NOTE | 2024-12-24 15:47 | PDOC.CMPRO ---
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 She continues to be surrounded by family and appears comfortable. Family is worried about the financial burden of cremation. CM encouraged them to call the home and discuss this with them. There are special programs for this. Family was appreciative of this information. Discharge Plan: Ely will remain at [facility] through the end of her life. CM will continue to support as able. Social Determinants of Health Screening Will the Patient Participate in the Screening?: Declined to provide
[2024-12-24] MEDS: Scopolamine 1 MG/3 DAYS PATCH TD (16:13)
--- NOTE | 2024-12-24 16:46 | W.PM.PROGNOT ---
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 Treated pneumonia along with COPD exacerbatoin. no PE in CTA. She unfortunately worsened overnight the first night with MS suppression a/w hypercapnea leading to profound respiratory acidosis. Some improvement with adjusting BiPAP/NIV all day, but still profound acidosis/hypercapnea still evident on morning labs. This is clearly a patient we would intubate, but she was clear about DNR/DNI when she was alert on admission. Transitioned to GRAD INTERN 12/23, now on the floor. Daughter was able to see her. Focus on comfort. Palliative and hydrodynamicist following, help appreciated. (2) COPD (chronic obstructive pulmonary disease): Status: Chronic Assessment and plan: Treated as above, now focus on comfort. (3) Fibromyalgia: Assessment and plan: Chronic pain with history of PTSD. Was on gabapentin and venlafaxine, could continue for comfort, but not taking PO now so these stopped. Subjective Subjective Patient reports: denies diarrhea, vomiting or fever Interval history since last seen: 24 hr: Transitioned to GRAD INTERN status after d/w family, continued BiPAP to keep her alive to see daughter on BiPAP overnight, more alert, intermittently conversant, but unable to tolerate removal of BiPAP Transfered to floor, off BiPAP, on morphine for comfort not conversant at time of my evaluation, but has not complained of pain. Asks for drinks at time, has a hard time when trying to drink as she has to come off bipap, chokes some. Incontinent of urine, large amount. Exam Narrative Exam Narrative: General: Sedate, not responsive, on bipap Lungs: appears comfortable on bipap, poor air movement. Heart: Regular rate and rhythm Extremities: Without gross clubbing, cyanosis or pitting edema. Skin: Pale, warm and dry, no rash Objective Last Vital Signs Temp 36 C L 12/23/24 12:00 Pulse 90 12/24/24 10:00 Resp 26 H 12/23/24 18:12 BP 74/45 L 12/23/24 16:01 Pulse Ox 89 L 12/24/24 10:00 Laboratory Results - last 24 hr 12/24/24 05:45 WBC 15.46 H RBC 2.84 L Hgb 10.3 L Hct 33.4 L MCV 118 H MCH 36.3 H MCHC 30.8 L RDW 12.0 Plt Count 197 MPV 10.4 Sodium 143 Potassium 4.6 Chloride 100 Carbon Dioxide > 45.0 H Anion Gap -2.09752 L BUN 37 H Creatinine 0.9 Est GFR (CKD-EPI 2020) 73.64 Glucose 114 H Calcium 9.2 Total Bilirubin 0.2 AST 21 ALT 18 Alkaline Phosphatase 50 Total Protein 6.5 Albumin 3.0 L Time Spent with Patient Time Spent with Patient: 35-49 minutes Time was spent: preparing to see the patient(eg.review tests), obtaining and/or reviewing separately otained hiistory, ordering medications,tests, procedures, referring, communicating with other health anesthesiologist and critical care, indepentently interpreting results, counseling the patient and care coordination
[2024-12-24] MEDS: LORazepam 2 MG/ML VIAL IVP (19:47)
[2024-12-25 00:16] VITALS: RESP 16
[2024-12-25 03:52] VITALS: RESP 14
--- NOTE | 2024-12-25 12:35 | PGE_ITS ---
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 Treated pneumonia along with COPD exacerbatoin. no PE in CTA. She unfortunately worsened overnight the first night with MS suppression a/w hypercapnea leading to profound respiratory acidosis. Some improvement with adjusting BiPAP/NIV all day, but still profound acidosis/hypercapnea still evident This is clearly a patient we would intubate, but she was clear about DNR/DNI when she was alert on admission. Transitioned to POLLUTION CONTROL TECHNICIAN 12/23, now on the floor. She appears comfortable on appropriate medications. Prognosis is still hours (more likely) to days Palliative and adjudication specialist following, help appreciated. (2) COPD (chronic obstructive pulmonary disease): Status: Chronic Assessment and plan: Treated as above, now focus on comfort. Subjective Subjective Patient reports: denies diarrhea, vomiting or fever Interval history since last seen: Events: Transitioned to med/surg POLLUTION CONTROL TECHNICIAN room after palliative consult, daughter arrived. Started morphine drip patient not responsive, appears comfortable. Exam Narrative Exam Narrative: General: Sedate, not responsive Lungs: Breathing shallow regular breaths, appears comfortable, poor air movement. Heart: Regular rate and rhythm Skin: Pale, dry, cooler Objective Last Vital Signs Temp 36 C L 12/23/24 12:00 Pulse 90 12/24/24 10:00 Resp 14 12/25/24 03:52 BP 74/45 L 12/23/24 16:01 Pulse Ox 89 L 12/24/24 10:00 Time Spent with Patient Time Spent with Patient: 25-34 minutes Time was spent: referring, communicating with other health adult care provider and care coordination
--- NOTE | 2024-12-26 06:29 | EXPE_ITS ---
Date of service: 12/26/24 Time of Service: : Discharge Plan Disposition Patient Disposition: Discharge Details Reason For Visit: Acute on chronic hypoxic and hypercapnic respirato Admit Date/Time: 12/22/24 21:32 Admit Provider: Estevan Cortes Attending Provider: Estevan Cortes Primary Care Provider: Lelo Bowman Hospital Course Hospital Course: 59-year-old female with end-stage COPD/emphysema, smoker, oxygen dependant, whoe presented in acute on chronic hypercapnic and hypoxic respiratory failure on 12/22. She was treated with IV steroids and ceftriaxone and azithromycin for pneumonia. She was confirm DNR/DNI on admission when her mental status was intact. Her initial VBG showed a normal PH and her baseline elevated pCO2. However overnight she became profoundly hypercapneic with a respiratory acidosis despite supportive care. With adjustments of NIV/BiPAP settings her pH improved somewhat but her pCO2 was still undetectably high. Despite efforts to improve ventilation using non-invasive support, her respiratory acidosis worsened and her mental status was suppressed. On 12/23 it was decided to transition to comfort focused care. She remained on NIV support so that her daughter could arrive from out of state to say goodbye. On 12/24 the ventilation was removed and she was on full comfort care until her . January she rest in peace. Discharge Data Cause of : COPD with acute lower respiratory infection Discharge Date/Time-TO BE ENTERED AT DEPARTURE: 12/26/24 02:08 Discharge Sum: Prov Provider Primary care physician: Lelo Villanueva Admitting clinician: Estevan Cortes Attending physician on admission: Wesley Livingston Consults: 12/22/24 21:32 Palliative Care Consult [CONS] Routine Consultation Status:: Follow-up needed Clarification:: Manage/follow per spec. Reason for consult:: Reviewed patient's case and end-of-life care with family and patient. Patient now is DNR/DNI. Review of the COLST form. 12/23/24 16:36 Furniture Technician Consult [CONS] Routine Consultation Status:: Contact made by Clarification:: Manage/follow per spec. Reason for consult:: seen by Kizzy capone Pronouncing clinician: Wesley Livingston Discharge Sum: Diag PCOD Cause of : COPD with acute lower respiratory infection Contributing Factors (1) Acute on chronic respiratory failure with hypoxia and hypercapnia: (2) COPD (chronic obstructive pulmonary disease): Discharge Sum: Summary Additional Data Confirmation of as documented by pronouncing clinician: no pulse, no respirations and no heart sounds Family: at bedside Attending/PCP notified?: Yes Attending Physician: Wesley Livingston Was code activated?: No Autopsy requested?: No finished cloth examiner notified?: Yes Organ bank notified?: Yes Advance directives: Yes (verbally communicated) Hospice patient?: No
== END 2024-12-26 02:08 | disposition expired | DRG 193 ==
LOC: ER 22:23 → ICU 22:27 → MS 12-24 12:57
PROVIDERS: Admitting Provider Family Medicine; Emergency Provider Emergency Medicine; PCP Nurse Practitioner Family; Responsible Provider Family Medicine; Visit Provider Family Medicine
DX: J18.9 Pneumonia, unspecified organism (principal); J96.21 Acute and chronic respiratory failure with hypoxia; J96.22 Acute and chronic respiratory failure with hypercapnia; J44.0 Chronic obstructive pulmonary disease with (acute) lower respiratory infection; J44.1 Chronic obstructive pulmonary disease with (acute) exacerbation; Z51.5 Encounter for palliative care; E83.42 Hypomagnesemia; D75.89 Other specified diseases of blood and blood-forming organs; M79.7 Fibromyalgia; F43.10 Post-traumatic stress disorder, unspecified; K21.9 Gastro-esophageal reflux disease without esophagitis; E78.2 Mixed hyperlipidemia; R53.1 Weakness; F17.210 Nicotine dependence, cigarettes, uncomplicated; Z66 Do not resuscitate; D75.1 Secondary polycythemia; F41.9 Anxiety disorder, unspecified; F32.A Depression, unspecified; I73.9 Peripheral vascular disease, unspecified; D64.9 Anemia, unspecified
CPT/HCPCS: 00123; 36415; 70496; 70498; 71275; 80053; 80307; 82805; 85027; 87637; 93005; 94640; 96365; 96366; 96367; 96375; 99291; 71046; 72128; 72131; 81003; 81015; 82607; 82746; 83540; 83735; 84443; 84484; 85025; 85610; 93010; 94660; 99223; 99232; 99233; J0456; J0696; J1171; J2060; J2270; J2405; J2919; J3475; J3490; J7620